=== PATIENT | female | born 1940 | race Caucasian/White ===

== ENCOUNTER 2017-01-02 11:57 | Inpatient (IN) | payer MEDICARE, BC ==
[~2017-01-02] VITALS: Ht 160 cm; Wt 53.1 kg
[2017-01-02] VITALS (23 sets, daily range): BP systolic 96–136; BP diastolic 49–87; PULSE 88–98; RESP 16–28; Ht 160 cm; Wt 53.1 kg
[2017-01-02] MEDS ORDERED: RANI300T PO (13:17)
[2017-01-02] MEDS ORDERED: LISI10TA2 PO (13:17)
[2017-01-02] MEDS ORDERED: PHEN-616 PO (13:17)
[2017-01-02] MEDS ORDERED: ATOR40TA68 PO (13:17)
[2017-01-02] MEDS ORDERED: MECL-77 PO (13:17)
[2017-01-02] MEDS ORDERED: LEFL20TA18 PO (13:17)
[2017-01-02] MEDS ORDERED: SITA50TA2 PO (13:17)
[2017-01-02] MEDS ORDERED: CIPR-193 PO (13:17)
[2017-01-02] MEDS ORDERED: AMIT75TA2 PO (13:17)
[2017-01-02] MEDS ORDERED: NIFE30TA60 PO (13:17)
[2017-01-02] MEDS ORDERED: METO25TA4 PO (13:17)
[2017-01-02] MEDS ORDERED: HEPARIN 1000 UNITS/ML 10 ML INJ ONE (15:07)
[2017-01-02] MEDS ORDERED: MIDAZOLAM 1 MG/ML 2 ML INJ ONE (15:08)
[2017-01-02] MEDS ORDERED: FENTAnyl 50 MCG/ML VIAL ONE (15:08)
[2017-01-02] MEDS ORDERED: VERAPAMIL 5 MG INJ ONE (15:08)
[2017-01-02] MEDS ORDERED: NITROGLYCERIN (IC) 100 MCG/ML INJ ONE (15:08)
[2017-01-02] MEDS ORDERED: ASPIRIN 325 MG TAB ONE (16:00)
[2017-01-02] MEDS ORDERED: TICAGRELOR 90 MG TABLET ONE (16:00)
[2017-01-02] MEDS ORDERED: IOHEXOL 350MG/ML 50 ML BTL ONE (16:00)
[2017-01-02] MEDS ORDERED: BIVALIRUDIN 250MG /NS 50 ML 50 ML IVPB ONE (16:00)
[2017-01-02] MEDS ORDERED: IODIXANOL LOCM 100 ML BTL ONE (16:00)
[2017-01-02] MEDS ORDERED: CLOPIDOGREL 75 MG TAB ONE ×2 (16:19→16:26)
[2017-01-02] MEDS ORDERED: SOD CHLORIDE 0.9% 1,000 ML IV SCH (16:59)
[2017-01-02] MEDS ORDERED: ONDANSETRON 4 MG INJ IV PRN (17:00)
--- NOTE | 2017-01-02 17:25 | OPR ---
Date/Time of Note Date/Time of Note DATE: 01/02/17 TIME: 17:05 Operative Report Procedure Date: Jan 02, 2017 Preoperative Diagnosis NSTEMI Postoperative Diagnosis NSTEMI, CAD Surgeon see signature line Vacation Planner none Anesthesia Type: moderate sedation Anesthesiologist: COLT LIMA Estimated Blood Loss: minimal Transfusion none Specimen none Grafts/Implants none Complications none Procedure Description Procedure Date: 01/02/2017 Dairy Hand/surgeon: Colt Lima MD. Procedures Performed: 1)Left heart catheterization with selective left and right coronary angiography. 2)Aborted PCI of RCA. Will be reattempted at a later time. Pre-operative Diagnosis:NSTEMI Post-operative Diagnosis:NSTEMI, obstructive CAD Indications:76 yo F with a h/o HTN, HL, urinary retention with indwelling campbell , who presented initially due to dysphagia but was found to have an NSTEMI with trop >2 and renal failure. The renal failure resolved. CT of the chest and abd at [facility] was unremarkable. Cardiac cath for evaluation of coronaries. Description of Procedure: After informed consent, the patient was brought to the cardiac catheterization lab. The procedure site was prepped and draped in usual manner. The patient was premedicated with versed 1 mg and fentanyl 25 mcg. 3 mL lidocaine was injected into the left wrist. Next using the posterior wall technique, the 6/5 northern irish sheath was inserted into the left radial artery. Next using the JL3.0 and multiple right catheters (JR4, Demarcus posterior, AL, Ikari left/right, and eventually Demarcus right), selective angiography of the left and right coronary arteries were obtained. Left ventricle angiography was not obtained. The decision was made to proceed with PCI of the RCA. A 6 northern irish IM guide eventually engaged into the RCA. A runthrough wire and PT LS wire were attempted to cross the lesion but due to lack of support (even with balloon support), the wire would not cross. As the fluoroscopy time was nearing 30 mins and the pt had just recently recovered from renal failure, the decision was made to stop the case and bring her back at a different time. Next all equipment was removed and hemostasis was achieved by TR band. Findings: Anatomy/Hemodynamics: Left main: normal LAD: mid 70-80% Diagonal: luminal irregularities Circumflex:mid 30% Obtuse marginal: luminal irregularities RCA: prox to mid long segment of disease up to 95% PDA: luminal irregularities PLV: luminal irregularities LV angiography:not done LV-Ao: no gradient LVEDP: 0 mmHg Contrast used: 130 mL Fluoroscopy time:28.8 mins Medications used: Versed 1mg Fentanyl 25mcg Angiomax bolus plus drip ASA 325mg plavix 600mg Equipment used: 6 northern irish IM guide Runthrough and PT 2 LS angioplasty wire Estimated blood loss<10 mL. Specimen: none Grafts/implants: none Complications: none Assessment: NSTEMI s/p attempted PCI of RCA. Will bring pt back for repeat procedure in 2 days CAD: RCA and LAD disease. Will plan for PCI of RCA this hospitalization and then bring pt back for LAD as outpt HTN HL Chronic indwelling campbell Bladder surgery Dysphagia Plan: -admit to tele under the care of Dr. Humphries -ROME, plavix, lipitor, metoprolol -PCI of RCA in 2 days COLT LIMA Jan 02, 2017 17:25
[2017-01-02] MEDS ORDERED: morphine 2 MG INJ ONE (19:00)
[2017-01-02] MEDS: morphine 2 MG INJ IV PRN (19:06)
[2017-01-02] MEDS: ATORVASTATIN 40 MG TAB PO SCH (20:46)
[2017-01-02] MEDS: METOPROLOL 25 MG TAB PO SCH (20:47)
[2017-01-03] VITALS (14 sets, daily range): BP systolic 117–154; BP diastolic 56–71; PULSE 78–96; RESP 18–19
[2017-01-03] MEDS: morphine 2 MG INJ IV PRN ×3 (03:39→21:33)
--- NOTE | 2017-01-03 07:41 | CONS ---
Date/Time of Note Date/Time of Note DATE: 01/03/17 TIME: 07:36 Assessment/Plan Assessment/Plan Chief Complaint/Hosp Course NSTEMI s/p attempted PCI of RCA which was aborted due to procedure length and pt discomfort. Will repeat tomorrow CAD: RCA and LAD disease. Will plan for PCI of RCA this hospitalization and then bring pt back for LAD as outpt HTN HL Chronic indwelling campbell Bladder surgery Dysphagia UTI -ASA, plavix, lipitor, metoprolol -PCI of RCA tomorrow at 2 pm Problems: Consultation Date/Type/Reason Admit Date/Time Jan 02, 2017 at 17:02 Initial Consult Date 24 HR Interval Summary Free Text/Dictation No o/n events. No chest pain or SOB. Exam/Review of Systems Vital Signs Vitals Vital Signs Date Time Temp Pulse Resp B/P Pulse Ox O2 Delivery O2 Flow Rate FiO2 01/03/17 07:10 98.3 70 19 126/66 94 01/02/17 19:08 Nasal Cannula 2.0 Intake and Output 01/02/17 01/02/17 01/03/17 15:00 23:00 07:00 Intake Total 250 ml 350 ml Output Total 1500 ml 600 ml Balance -1250 ml -250 ml Exam Constitutional: alert, oriented Psych: no complaints Head: atraumatic, normocephalic Eyes: nl conjunctiva Neck: No jvd Respiratory: clear to auscultation, No crackles/rales Cardiovascular: regular rate and rhythm, systolic murmur, No edema Gastrointestinal: non-tender, soft Neurological: nl mental status, nl speech Results Results 24 hrs Laboratory Tests Test 01/02/17 19:10 Bedside Glucose 117 Medications Medications Current Medications Morphine Sulfate (morphine) 2 mg Q2H PRN IV FOR NON CARDIAC PAIN (4-10) Last administered on 01/03/17 03:39; Admin Dose 2 MG; Start 01/02/17 at 17:00 Ondansetron HCl (Zofran Inj) 4 mg Q4H PRN IV NAUSEA AND/OR VOMITING; Start 01/02/17 at 17:00 Aspirin (Aspirin) 81 mg DAILY PO ; Start 01/03/17 at 09:00 Clopidogrel Bisulfate (plaVIX) 75 mg DAILY PO ; Start 01/03/17 at 09:00 Atorvastatin Calcium (Lipitor) 40 mg HS PO Last administered on 01/02/17 20:46 ; Admin Dose 40 MG; Start 01/02/17 at 21:00 Metoprolol Tartrate (Lopressor) 25 mg BID PO Last administered on 01/02/17 20: 47; Admin Dose 25 MG; Start 01/02/17 at 21:00 QING LI Jan 03, 2017 07:41
[2017-01-03 08:13] LABS: BASOPHIL # 0.1 10^3/ul (0.0-0.1); BASOPHILS % 0.7 % (0.0-2.0); EOSINOPHILS # 0.2 10^3/ul (0.0-0.5); HEMATOCRIT 26.7 % (37.0-47.0); HEMOGLOBIN 8.6 g/dl (12.0-16.0); LYMPHOCYTES # 1.9 10^3/ul (0.8-2.9); LYMPHOCYTES % 20.4 % (15.0-51.0); MEAN CORPUSCULAR HEMOGLOBIN 29.2 pg (29.0-33.0); MEAN CORPUSCULAR HGB CONC 32.2 g/dl (32.0-37.0); MEAN CORPUSCULAR VOLUME 90.5 fl (82.0-101.0); MEAN PLATELET VOLUME 9.3 fl (7.4-10.4); MONOCYTES % 10.5 % (0.0-11.0); NEUTROPHILS % 64.5 % (39.0-77.0); PLATELET COUNT 212 10^3/UL (140-415); RED BLOOD COUNT 2.95 10^6/ul (4.20-5.40); RED CELL DISTRIBUTION WIDTH 17.6 % (11.5-14.5); WHITE BLOOD COUNT 9.4 10^3/ul (4.8-10.8)
[2017-01-03 08:30] LABS: CALCIUM 8.8 mg/dl (8.4-10.2); CREATININE 0.77 mg/dl (0.44-1.00); MAGNESIUM 2.1 mg/dl (1.7-2.5); PHOSPHORUS 3.3 mg/dl (2.5-4.9); POTASSIUM 3.4 mmol/L (3.5-5.1)
[2017-01-03] MEDS ORDERED: MECLIZINE 25 MG TAB PO PRN (08:30)
--- NOTE | 2017-01-03 09:46 | HP ---
DATE OF ADMISSION: 01/02/2017 CHIEF COMPLAINT: Chest pain and shortness of breath. HISTORY OF PRESENT ILLNESS: The patient is a 76-year-old female with a past medical history of coronary artery disease, history of hypertension, history of dyslipidemia, history of diabetes, history of recurrent UTI, history of chronic indwelling Jang catheter who presented to an outside hospital with complaints of chills, fevers, shortness of breath. The patient was admitted to the outside hospital, was diagnosed with UTI. The patient also noted to have acute kidney injury and was treated with IV antibiotics as well as IV fluids with resolution of acute kidney injury. The patient was then noted to have a non-STEMI and was transferred to [facility] for cardiac catheterization. The patient had attempted cardiac catheterization yesterday by Dr. Connelly, but given difficult procedure, unable to pass a stent through her RCA. A re-attempt will be made tomorrow. Upon my evaluation of the patient at this time, she is complaining about episode of dysphagia where she states she was told it was due to infection. The patient otherwise denies any hemoptysis, hematemesis, or hematochezia. PAST MEDICAL HISTORY: As stated above. 1. History of coronary disease. 2. Hypertension. 3. Dyslipidemia. 4. Chronic indwelling Jang. 5. History of dysphagia. 6. Recurrent urinary tract infections. PAST SURGICAL HISTORY: Status post bladder surgery. FAMILY HISTORY: Noncontributory. SOCIAL HISTORY: Does not drink, smoke, or do drugs. ALLERGIES: SULFA. MEDICATIONS: Have been reviewed and reconciled. REVIEW OF SYSTEMS: Fourteen point review of systems conducted. Pertinent positives stated in HPI, otherwise negative. PHYSICAL EXAMINATION: VITAL SIGNS: Blood pressure is 126/66, respirations 19, pulse 78, temperature 98.3. HEENT: Head is normocephalic. Pupils are reactive to light. NECK: Supple. HEART: Regular rate. LUNGS: Diminished breath sounds at the base. ABDOMEN: Soft, nontender to palpation. No rebound or guarding. EXTREMITIES: Negative for clubbing, cyanosis. No edema. DERMATOLOGIC: Clean. No rashes. MUSCULOSKELETAL: No joint effusion. NEUROLOGIC: No focal deficits. EKG/LABORATORY DATA: The patient has a white count of 9.4, hemoglobin 8.6, hematocrit 26.7, platelet count 212. The patient's BMP is pending. ASSESSMENT AND PLAN: This is a 76-year-old female who presents with: 1. [id number] myocardial infarction. The patient is status post cardiac catheterization. We will re-attempt catheterization tomorrow. Follow up with Commercial Illustrator, Dr. Connelly. Continue current medical management with aspirin, Lipitor, and Plavix. 2. Hypertension. Continue current blood pressure regimen. 3. Anemia. Monitor H and H levels. 4. Nonoliguric acute kidney injury. Etiology is felt to be secondary to hemodynamics. Renal function is improving. Continue to monitor. 5. Recurrent urinary tract infection. Continue to monitor. Place an Infectious Disease consult for evaluation. 6. History of indwelling Jang catheter. 7. Diabetes. Continue Accu-Cheks and sliding scale. 8. Gastrointestinal and deep venous thrombosis prophylaxis. 9. Dysphagia. Continue to monitor. Get Speech Therapy evaluation. Dictated By: Tyler Humphries DO /florencio/lisa /Document#: [id number]
[2017-01-03] MEDS: CLOPIDOGREL 75 MG TAB PO SCH (10:00)
[2017-01-03] MEDS: ASPIRIN 81 MG TAB PO SCH (10:00)
[2017-01-03] MEDS: LISINOPRIL 10 MG TAB PO SCH (10:04)
[2017-01-03] MEDS: LEFLUNOMIDE 10 MG TAB PO SCH (10:04)
[2017-01-03] MEDS: METOPROLOL 25 MG TAB PO SCH ×2 (10:04→22:16)
[2017-01-03] MEDS: PHENAZOPYRIDINE 200 MG TAB PO SCH ×3 (10:06→22:16)
[2017-01-03] MEDS: CIPROFLOXACIN 250 MG TAB PO SCH ×2 (10:06→22:14)
--- NOTE | 2017-01-03 16:33 | CONS ---
Date/Time of Note Date/Time of Note DATE: 01/03/17 TIME: 16:30 Assessment/Plan Assessment/Plan Chief Complaint/Hosp Course Recurrent UTI NSTEMI DM HTN Anemia Suprapubic catheter Abx: Cipro Plan: Clinically stable, continue abx, f/u final cx, cardiology rec-s DW pt Problems: Consultation Date/Type/Reason Admit Date/Time Jan 02, 2017 at 17:02 Initial Consult Date Type of Consultation: ID Exam/Review of Systems Vital Signs Vitals Vital Signs Date Time Temp Pulse Resp B/P Pulse Ox O2 Delivery O2 Flow Rate FiO2 01/03/17 15:33 98.1 69 19 139/63 98 01/02/17 19:08 Nasal Cannula 2.0 Intake and Output 01/02/17 01/02/17 01/03/17 15:00 23:00 07:00 Intake Total 250 ml 350 ml Output Total 1500 ml 600 ml Balance -1250 ml -250 ml Results Result Diagram: 01/03/17 0738 01/03/17 0738 Results 24 hrs Laboratory Tests Test 01/02/17 19:10 01/03/17 07:38 Bedside Glucose 117 White Blood Count 9.4 Red Blood Count 2.95 L Hemoglobin 8.6 L Hematocrit 26.7 L Mean Corpuscular Volume 90.5 Mean Corpuscular Hemoglobin 29.2 Mean Corpuscular Hemoglobin Concent 32.2 Red Cell Distribution Width 17.6 H Platelet Count 212 Mean Platelet Volume 9.3 Neutrophils % 64.5 Lymphocytes % 20.4 Monocytes % 10.5 Eosinophils % 2.0 Basophils % 0.7 Nucleated Red Blood Cells % 0.0 Neutrophils # 6.0 Lymphocytes # 1.9 Monocytes # 1.0 H Eosinophils # 0.2 Basophils # 0.1 Nucleated Red Blood Cells # 0.0 Sodium Level 134 L Potassium Level 3.4 L Chloride Level 109 Carbon Dioxide Level 19 L Anion Gap 9 Blood Urea Nitrogen 14 Creatinine 0.77 Glucose Level 83 Calcium Level 8.8 Phosphorus Level 3.3 Magnesium Level 2.1 Medications Medications Current Medications Morphine Sulfate (morphine) 2 mg Q2H PRN IV FOR NON CARDIAC PAIN (4-10) Last administered on 01/03/17t 03:39; Admin Dose 2 MG; Start 01/02/17 at 17:00 Ondansetron HCl (Zofran Inj) 4 mg Q4H PRN IV NAUSEA AND/OR VOMITING; Start 01/02/17 at 17:00 Aspirin (Aspirin) 81 mg DAILY PO Last administered on 01/03/17 10:00; Admin Dose 81 MG; Start 01/03/17 at 09:00 Clopidogrel Bisulfate (plaVIX) 75 mg DAILY PO Last administered on 01/03/17 10 :00; Admin Dose 75 MG; Start 01/03/17 at 09:00 Atorvastatin Calcium (Lipitor) 40 mg HS PO Last administered on 01/02/17 20:46 ; Admin Dose 40 MG; Start 01/02/17 at 21:00 Metoprolol Tartrate (Lopressor) 25 mg BID PO Last administered on 01/03/17 10: 04; Admin Dose 25 MG; Start 01/02/17 at 21:00 Amitriptyline HCl (Elavil) 75 mg QHS PO ; Start 01/03/17 at 21:00 Ciprofloxacin (Cipro) 250 mg BID PO Last administered on 01/03/17 10:06; Admin Dose 250 MG; Start 01/03/17 at 10:00 Leflunomide (Arava) 20 mg DAILY PO Last administered on 01/03/17 10:04; Admin Dose 20 MG; Start 01/03/17 at 10:00 Lisinopril (Zestril) 10 mg DAILY PO Last administered on 01/03/17 10:04; Admin Dose 10 MG; Start 01/03/17 at 10:00 Meclizine HCl (Antivert) 25 mg Q8H PRN PO DIZZINESS; Start 01/03/17 at 08:30 Phenazopyridine HCl (Pyridium) 200 mg TID PO Last administered on 01/03/17 13: 09; Admin Dose 200 MG; Start 01/03/17 at 10:00 Ranitidine HCl (Zantac) 300 mg HS PO ; Start 01/03/17 at 21:00 WEST LIAO NP Jan 03, 2017 16:33
[2017-01-03 19:31] LABS: ADD UMIC YES; UR ASCORBIC ACID NEGATIVE (NEGATIVE); UR BILIRUBIN (Dip) NEGATIVE (NEGATIVE); UR BLOOD (Dip) NEGATIVE (NEGATIVE); UR CLARITY CLEAR (CLEAR); UR COLOR AMBER (YELLOW); UR GLUCOSE (Dip) NEGATIVE (NEGATIVE); UR KETONES (Dip) 1+ mg/dL (NEGATIVE); UR LEUKOCYTE ESTERASE (Dip) TRACE Leu/ul (NEGATIVE); UR NITRITE (Dip) POSITIVE (NEGATIVE); UR RBC 2 /HPF (0-5); UR SPECIFIC GRAVITY (Dip) 1.011 (1.003-1.030); UR TOTAL PROTEIN (Dip) NEGATIVE (NEGATIVE); UR UROBILINOGEN (Dip) 2+ mg/dL (NEGATIVE)
[2017-01-03] MEDS: AMITRIPTYLINE 25 MG TAB PO SCH (22:14)
[2017-01-03] MEDS: ATORVASTATIN 40 MG TAB PO SCH (22:14)
[2017-01-03] MEDS: RANITIDINE 150 MG TAB PO SCH (22:16)
[2017-01-03] MEDS: ZOLPIDEM 5 MG TAB PO PRN (22:49)
[2017-01-04] VITALS (20 sets, daily range): BP systolic 79–163; BP diastolic 19–65; PULSE 59–105; RESP 12–19; TEMP 97.5–97.9
[2017-01-04] MEDS ORDERED: ROCURONIUM 50 MG INJ ONE ×2 (07:00→20:07)
[2017-01-04] MEDS ORDERED: NA BICARBONATE 8.4% 50 ML SYG ONE ×2 (07:00→17:14)
[2017-01-04] MEDS ORDERED: DEXTROSE 5% WATER 500 ML BAG ONE (07:00)
[2017-01-04] MEDS ORDERED: ETOMIDATE 20 MG INJ ONE ×2 (07:00→20:07)
[2017-01-04] MEDS ORDERED: AMIODARONE 900 MG INJ ONE (07:00)
[2017-01-04] MEDS ORDERED: NITROGLYCERIN 50 MG/D5W 250 ML BTL ONE (07:00)
[2017-01-04 08:08] LABS: CALCIUM 8.7 mg/dl (8.4-10.2); CREATININE 0.72 mg/dl (0.44-1.00); MAGNESIUM 1.9 mg/dl (1.7-2.5)
[2017-01-04 08:13] LABS: POTASSIUM 2.9 mmol/L (3.5-5.1)
[2017-01-04] MEDS ORDERED: POTASSIUM CHLORIDE 20 MEQ POWDER FOR ORAL SOLN PO ONE (08:30)
[2017-01-04] MEDS: PHENAZOPYRIDINE 200 MG TAB PO SCH ×3 (09:49→21:00)
[2017-01-04] MEDS: CLOPIDOGREL 75 MG TAB PO SCH (09:50)
[2017-01-04] MEDS: LISINOPRIL 10 MG TAB PO SCH (09:50)
[2017-01-04] MEDS: ASPIRIN 81 MG TAB PO SCH (09:51)
[2017-01-04] MEDS: METOPROLOL 25 MG TAB PO SCH ×2 (09:51→21:00)
[2017-01-04] MEDS: CIPROFLOXACIN 250 MG TAB PO SCH (09:52)
[2017-01-04] MEDS ORDERED: POTASSIUM PHOSPHATE 40 MEQ in SOD CHLORIDE 0.9% 250 ML IVPB ONE (10:00)
--- NOTE | 2017-01-04 10:30 | PN ---
DATE: 01/04/2017 SUBJECTIVE: The patient is stable. He is complaining, however, of dysphagia. No other events note d. No hemoptysis, hematemesis or hematochezia. OBJECTIVE: VITAL SIGNS: Blood pressure is 130/65, temperature 97.9, pulse 84, respiration 18. HEENT: Head is normocephalic. NECK: Supple. HEART: Regular rate. LUNGS: Show diminished breath sounds at the base. ABDOMEN: Soft, nontender to palpation. No rebound or guarding. EXTREMITIES: Negative for clubbing, cyanosis, edema. DERMATOLOGIC: No rashes. MUSCULOSKELETAL: No joint effusions. NEUROLOGIC: No change in exam. MEDICATIONS: The patient's medications have been reviewed. LABORATORY DATA: Shows a sodium 134, potassium 2.9, chloride 108, bicarbonate 17, BUN 9, creatinine 0.72. ASSESSMENT AND PLAN: 1. Non-ST elevation myocardial infarction. The patient is status post cardiac catheterization. At tempting repeat cardiac catheterization possibly today. Follow up with cardiology. Continue curren t medical management. 2. Hypokalemia, replete with potassium chloride. 3. Hypertension. Continue current blood pressure regimen. 4. Anemia. Continue to monitor hemoglobin and hematocrit levels. 5. Nonoliguric acute kidney injury. Etiology is secondary to hemodynamics. Renal function is impr francisco. 6. History of recurrent UTIs with indwelling Jang catheter. Continue to monitor. Follow up with infectious disease. 7. Dysphagia. We will place a GI consult for evaluation. 8. Diabetes. Continue current insulin regimen. 9. Gastrointestinal and deep venous thrombosis prophylaxis. 10. Questionable history of joint arthritis. The patient currently is on Arava. Will monitor clos dane. 11. Depression. Continue Elavil. Dictated By: PIEDAD LAUREN/RONALD Conf#: [id number] DID#: [id number]
[2017-01-04 11:14] LABS: BASOPHIL # 0.1 10^3/ul (0.0-0.1); BASOPHILS % 0.7 % (0.0-2.0); EOSINOPHILS # 0.1 10^3/ul (0.0-0.5); EOSINOPHILS % 1.4 % (0.0-7.0); HEMATOCRIT 25.3 % (37.0-47.0); HEMOGLOBIN 8.3 g/dl (12.0-16.0); LYMPHOCYTES # 1.9 10^3/ul (0.8-2.9); LYMPHOCYTES % 22.4 % (15.0-51.0); MEAN CORPUSCULAR HEMOGLOBIN 29.5 pg (29.0-33.0); MEAN CORPUSCULAR HGB CONC 32.8 g/dl (32.0-37.0); MONOCYTE # 0.9 10^3/ul (0.3-0.9); MONOCYTES % 10.2 % (0.0-11.0); NEUTROPHIL # 5.4 10^3/ul (1.6-7.5); NEUTROPHILS % 63.4 % (39.0-77.0); PLATELET COUNT 210 10^3/UL (140-415); RED BLOOD COUNT 2.81 10^6/ul (4.20-5.40); RED CELL DISTRIBUTION WIDTH 17.7 % (11.5-14.5); WHITE BLOOD COUNT 8.5 10^3/ul (4.8-10.8)
--- NOTE | 2017-01-04 13:20 | CONS ---
DATE OF ADMISSION: 01/02/2017 DATE OF CONSULTATION: TYPE OF CONSULTATION: GASTROINTESTINAL REFERRING PHYSICIAN: Dr. Piedad Blanton REASON FOR CONSULTATION: Dysphagia. HISTORY OF PRESENT ILLNESS: This is a 76-year-old female with a history of coronary artery disease, diabetes mellitus, dyslipidemia, was admitted to the outside hospital with a diagnosis of UTI. The patient was treated, stabilized and was transferred to this facility for coronary angiogram. Yester day, angiogram was attempted. The patient had right coronary artery disease. Stent could not be pl aced. The patient will be undergoing another angiogram today. She complains of dysphagia for the l ast 15 days and lost 13 pounds. No chest pain, no shortness of breath, no or ENTRY LEVEL BUYER problem. PAST MEDICAL HISTORY: Hypertension, coronary artery disease, dyslipidemia and UTI. PAST SURGICAL HISTORY: Status post bladder surgery. FAMILY HISTORY: Nothing contributory. SOCIAL HISTORY: Does not smoke or drink. ALLERGIES: SULFA. MEDICATIONS: All reviewed. REVIEW OF SYSTEMS: Negative. PHYSICAL EXAMINATION: GENERAL: Alert, awake, not in distress. VITAL SIGNS: Stable. HEENT: Unremarkable. NECK: Supple, no thyromegaly, no lymphadenopathy. CARDIOVASCULAR: No murmur, gallop or click. LUNGS: Clear. ABDOMEN: Benign. EXTREMITIES: No edema. CENTRAL NERVOUS SYSTEM: Grossly within normal limits. LABORATORY DATA: Hematocrit is low. BMP is within normal limits, hematocrit is 25. WBC is within normal limits. IMPRESSION: 1. Normochromic normocytic anemia. 2. Dysphagia. 3. Coronary artery disease, non-ST elevation myocardial infarction. 4. Hypertension. 5. Dyslipidemia. 6. Urinary tract infection. PLAN: At this point is to review the angiogram findings today and if cleared by cell feed department supervisor then w e will proceed with EGD. In the interim, continue present care. Dictated By: EVY ANDERSON/RONALD Conf#: [id number] DID#: [id number] CC: PIEDAD BLANTON DO;*EndCC*
--- NOTE | 2017-01-04 14:06 | CONS ---
Date/Time of Note Date/Time of Note DATE: 01/04/17 TIME: 14:05 Assessment/Plan Assessment/Plan Chief Complaint/Hosp Course NSTEMI s/p attempted PCI of RCA which was aborted due to procedure length and pt discomfort. Will repeat today CAD: RCA and LAD disease. Will plan for PCI of RCA this hospitalization and then bring pt back for LAD as outpt HTN HL Chronic indwelling campbell Bladder surgery Dysphagia UTI -ASA, plavix, lipitor, metoprolol -PCI of RCA today, keep NPO Problems: Consultation Date/Type/Reason Admit Date/Time Jan 02, 2017 at 17:02 Type of Consultation: Cardiology 24 HR Interval Summary Free Text/Dictation No o/n events. Plan for PCI of RCA today Exam/Review of Systems Vital Signs Vitals Vital Signs Date Time Temp Pulse Resp B/P Pulse Ox O2 Delivery O2 Flow Rate FiO2 01/04/17 12:00 84 01/04/17 11:20 98.0 19 136/63 98 01/02/17 19:08 Nasal Cannula 2.0 Intake and Output 01/03/17 01/03/17 01/04/17 15:00 23:00 07:00 Intake Total 700 ml 500 ml Output Total 700 ml 1300 ml Balance 0 ml -800 ml Exam Constitutional: alert, oriented Psych: nl mood/affect, no complaints Head: atraumatic, normocephalic Neck: No jvd Respiratory: clear to auscultation, No crackles/rales Cardiovascular: regular rate and rhythm, No edema Gastrointestinal: non-tender, soft Extremities: normal pulses Neurological: nl mental status, nl speech Results Result Diagram: 01/04/17 1058 01/04/17 0717 Results 24 hrs Laboratory Tests Test 01/03/17 18:59 01/04/17 07:17 01/04/17 10:58 Urine Color BONY Urine Clarity CLEAR Urine pH 6.0 Urine Specific [place] 1.011 Urine Ketones 1+ H Urine Nitrite POSITIVE A Urine Bilirubin NEGATIVE Urine Urobilinogen 2+ H Urine Leukocyte Esterase TRACE A Urine Microscopic RBC 2 Urine Microscopic WBC 9 H Urine Hemoglobin NEGATIVE Urine Random Creatinine 30.07 Urine Random Sodium 57 Urine Glucose NEGATIVE Urine Total Protein 32.0 H Sodium Level 134 L Potassium Level 2.9 *L Chloride Level 108 Carbon Dioxide Level 17 L Anion Gap 12 Blood Urea Nitrogen 9 Creatinine 0.72 Glucose Level 65 #L Calcium Level 8.7 Phosphorus Level 3.0 Magnesium Level 1.9 White Blood Count 8.5 Red Blood Count 2.81 L Hemoglobin 8.3 L Hematocrit 25.3 L Mean Corpuscular Volume 90.0 Mean Corpuscular Hemoglobin 29.5 Mean Corpuscular Hemoglobin Concent 32.8 Red Cell Distribution Width 17.7 H Platelet Count 210 Mean Platelet Volume 9.0 Neutrophils % 63.4 Lymphocytes % 22.4 Monocytes % 10.2 Eosinophils % 1.4 Basophils % 0.7 Nucleated Red Blood Cells % 0.0 Neutrophils # 5.4 Lymphocytes # 1.9 Monocytes # 0.9 Eosinophils # 0.1 Basophils # 0.1 Nucleated Red Blood Cells # 0.0 Medications Medications Current Medications Morphine Sulfate (morphine) 2 mg Q2H PRN IV FOR NON CARDIAC PAIN (4-10) Last administered on 01/03/17 21:33; Admin Dose 2 MG; Start 01/02/17 at 17:00 Ondansetron HCl (Zofran Inj) 4 mg Q4H PRN IV NAUSEA AND/OR VOMITING; Start 01/02/17 at 17:00 Aspirin (Aspirin) 81 mg DAILY PO Last administered on 01/04/17 09:51; Admin Dose 81 MG; Start 01/03/17 at 09:00 Clopidogrel Bisulfate (plaVIX) 75 mg DAILY PO Last administered on 01/04/17 09 :50; Admin Dose 75 MG; Start 01/03/17 at 09:00 Atorvastatin Calcium (Lipitor) 40 mg HS PO Last administered on 01/03/17 22:14 ; Admin Dose 40 MG; Start 01/02/17 at 21:00 Metoprolol Tartrate (Lopressor) 25 mg BID PO Last administered on 01/04/17 09: 51; Admin Dose 25 MG; Start 01/02/17 at 21:00 Amitriptyline HCl (Elavil) 75 mg QHS PO Last administered on 01/03/17 22:14; Admin Dose 75 MG; Start 01/03/17 at 21:00 Ciprofloxacin (Cipro) 250 mg BID PO Last administered on 01/04/17 09:52; Admin Dose 250 MG; Start 01/03/17 at 10:00 Leflunomide (Arava) 20 mg DAILY PO Last administered on 01/03/17 10:04; Admin Dose 20 MG; Start 01/03/17 at 10:00; Status Future Hold Lisinopril (Zestril) 10 mg DAILY PO Last administered on 01/04/17 09:50; Admin Dose 10 MG; Start 01/03/17 at 10:00 Meclizine HCl (Antivert) 25 mg Q8H PRN PO DIZZINESS; Start 01/03/17 at 08:30 Phenazopyridine HCl (Pyridium) 200 mg TID PO Last administered on 01/04/17 09: 49; Admin Dose 200 MG; Start 01/03/17 at 10:00 Ranitidine HCl (Zantac) 300 mg HS PO Last administered on 01/03/17 22:16; Admin Dose 300 MG; Start 01/03/17 at 21:00 Zolpidem Tartrate (Ambien) 5 mg HS PRN PO INSOMNIA Last administered on 22:49; Admin Dose 5 MG; Start 01/03/17 at 23:00 QING LI Jan 04, 2017 14:06
[2017-01-04] MEDS ORDERED: IOHEXOL 350MG/ML 50 ML BTL ONE (14:22)
[2017-01-04] MEDS ORDERED: BIVALIRUDIN 250MG /NS 50 ML 50 ML IVPB ONE ×2 (14:22→17:24)
[2017-01-04] MEDS ORDERED: NITROGLYCERIN (IC) 100 MCG/ML INJ ONE (14:22)
[2017-01-04] MEDS ORDERED: MIDAZOLAM 1 MG/ML 2 ML INJ ONE (14:22)
[2017-01-04] MEDS ORDERED: IODIXANOL LOCM 100 ML BTL ONE (14:22)
[2017-01-04] MEDS ORDERED: FENTAnyl 50 MCG/ML VIAL ONE (14:22)
[2017-01-04] MEDS ORDERED: LIDOCAINE 1% (MDV) 20 ML INJ ONE (14:22)
[2017-01-04] MEDS ORDERED: ATROPINE 1 MG/10 ML SYRINGE ONE ×2 (16:36→17:16)
[2017-01-04] MEDS ORDERED: DOPamine-D5W 1.6 MG/ML 250 ML ONE (16:36)
[2017-01-04] MEDS ORDERED: NORepinephrine 8MG/250 ML (PMX 250 ML ONE (16:36)
[2017-01-04] MEDS ORDERED: AMIODARONE 150 MG INJ ONE (16:41)
[2017-01-04] MEDS ORDERED: MIDAZOLAM 5 ML ONE ×2 (16:44)
[2017-01-04] MEDS ORDERED: HEPARIN 1000 UNITS/ML 10 ML INJ ONE ×3 (16:48→17:40)
[2017-01-04] MEDS ORDERED: AMIODARONE 900 MG in DEXTROSE 5% 482 ML IV SCH (17:00)
--- NOTE | 2017-01-04 17:10 | CONS ---
Date/Time of Note Date/Time of Note DATE: 01/04/17 TIME: 17:05 Assessment/Plan Assessment/Plan Additional Assessment/Plan 76 year old female s/p attempted PCI of RCA with resultant dissection and cardiac arrest needs emergent CABGx2. I discussed over the phone with patients daughter in law who has durable power of traffic law attorney. She understands the grave risks and benefits of surgery and consents. Consultation Date/Type/Reason Admit Date/Time Jan 02, 2017 at 17:02 Date of Consultation: Jan 04, 2017 Reason for Consultation emergency CABG Referring Provider: QING LI Hx of Present Illness 76 year old female undergoing PCI of RCA and vessel was dissecting. She went into vfib arrest requiring cardioversion. 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 Subjective hx not possible: pt non-verbal, pt critical status Psychological: nl mood/affect, no complaints Past Medical History Medical History: no pertinent history, angina Past Surgical History suprapubic catheter Family History Significant Family History: no pertinent family hx Social History Alcohol Use: none Smoking Status: Never smoker Exam/Review of Systems Vital Signs Vitals Vital Signs Date Time Temp Pulse Resp B/P Pulse Ox O2 Delivery O2 Flow Rate FiO2 01/04/17 12:00 84 01/04/17 11:20 98.0 19 136/63 98 01/02/17 19:08 Nasal Cannula 2.0 Intake and Output 01/03/17 01/03/17 01/04/17 15:00 23:00 07:00 Intake Total 700 ml 500 ml Output Total 700 ml 1300 ml Balance 0 ml -800 ml Exam Constitutional: non-verbal Head: No atraumatic, No hematomas, No lacerations, No normocephalic, No other Eyes: PERRL, nl sclera ENMT: No intubated, No mucosa pink and moist, No nl external ears & nose, No nl lips & teeth, No nl nasal mucosa & septum, No other, No tympanic membranes Neck: No bruits, No jvd, No masses, No non-tender, No nuchal rigidity, No other , No supple, No thyromegaly Respiratory: diminished breath sounds Cardiovascular: No S3, No S4, No bruits, No diastolic murmur, No edema, No gallop, No irregular rhythm, No jugular venous distention (JVD), No murmurs/ extra sounds, No nl pulses, No other, No regular rate and rhythm, No rub, No systolic murmur Gastrointestinal: No ascites, No bowel sounds, No distended, No firm, No hepatomegaly, No mass, No nl liver, spleen, No non-tender, No other, No rebound or guarding, No soft, No splenomegaly, No surgical scars, No tender Musculoskeletal: No joint tenderness, No muscle tone, No muscle weakness, No nl extremities to inspection, No nl gait and stance, No other, No range of motion, No spine non-tender, No swelling Extremities: No calf tenderness, No clubbing, No cyanosis, No edema, No normal pulses, No other, No palpable cord, No pitting pedal edema, No tenderness Neurological: unresponsive Skin: No diaphoresis, No ecchymosis, No laceration, No nl turgor, No other, No puncture, No rash or lesions Lymph: No enlarged, No nl lymph nodes, No nontender, No other Results Result Diagram: 01/04/17 1058 01/04/17 0717 Results 24 hrs Laboratory Tests Test 01/03/17 18:59 01/04/17 07:17 01/04/17 10:58 Urine Color BONY Urine Clarity CLEAR Urine pH 6.0 Urine Specific [place] 1.011 Urine Ketones 1+ H Urine Nitrite POSITIVE A Urine Bilirubin NEGATIVE Urine Urobilinogen 2+ H Urine Leukocyte Esterase TRACE A Urine Microscopic RBC 2 Urine Microscopic WBC 9 H Urine Hemoglobin NEGATIVE Urine Random Creatinine 30.07 Urine Random Sodium 57 Urine Glucose NEGATIVE Urine Total Protein 32.0 H Sodium Level 134 L Potassium Level 2.9 *L Chloride Level 108 Carbon Dioxide Level 17 L Anion Gap 12 Blood Urea Nitrogen 9 Creatinine 0.72 Glucose Level 65 #L Calcium Level 8.7 Phosphorus Level 3.0 Magnesium Level 1.9 White Blood Count 8.5 Red Blood Count 2.81 L Hemoglobin 8.3 L Hematocrit 25.3 L Mean Corpuscular Volume 90.0 Mean Corpuscular Hemoglobin 29.5 Mean Corpuscular Hemoglobin Concent 32.8 Red Cell Distribution Width 17.7 H Platelet Count 210 Mean Platelet Volume 9.0 Neutrophils % 63.4 Lymphocytes % 22.4 Monocytes % 10.2 Eosinophils % 1.4 Basophils % 0.7 Nucleated Red Blood Cells % 0.0 Neutrophils # 5.4 Lymphocytes # 1.9 Monocytes # 0.9 Eosinophils # 0.1 Basophils # 0.1 Nucleated Red Blood Cells # 0.0 Medications Medications Current Medications Morphine Sulfate (morphine) 2 mg Q2H PRN IV FOR NON CARDIAC PAIN (4-10) Last administered on 01/03/17 21:33; Admin Dose 2 MG; Start 01/02/17 at 17:00 Ondansetron HCl (Zofran Inj) 4 mg Q4H PRN IV NAUSEA AND/OR VOMITING; Start 01/02/17 at 17:00 Aspirin (Aspirin) 81 mg DAILY PO Last administered on 01/04/17 09:51; Admin Dose 81 MG; Start 01/03/17 at 09:00 Clopidogrel Bisulfate (plaVIX) 75 mg DAILY PO Last administered on 01/04/17 09 :50; Admin Dose 75 MG; Start 01/03/17 at 09:00 Atorvastatin Calcium (Lipitor) 40 mg HS PO Last administered on 01/03/17 22:14 ; Admin Dose 40 MG; Start 01/02/17 at 21:00 Metoprolol Tartrate (Lopressor) 25 mg BID PO Last administered on 01/04/17 09: 51; Admin Dose 25 MG; Start 01/02/17 at 21:00 Amitriptyline HCl (Elavil) 75 mg QHS PO Last administered on 01/03/17 22:14; Admin Dose 75 MG; Start 01/03/17 at 21:00 Ciprofloxacin (Cipro) 250 mg BID PO Last administered on 01/04/17 09:52; Admin Dose 250 MG; Start 01/03/17 at 10:00 Leflunomide (Arava) 20 mg DAILY PO Last administered on 01/03/17 10:04; Admin Dose 20 MG; Start 01/03/17 at 10:00; Status Future Hold Lisinopril (Zestril) 10 mg DAILY PO Last administered on 01/04/17 09:50; Admin Dose 10 MG; Start 01/03/17 at 10:00 Meclizine HCl (Antivert) 25 mg Q8H PRN PO DIZZINESS; Start 01/03/17 at 08:30 Phenazopyridine HCl (Pyridium) 200 mg TID PO Last administered on 01/04/17 09: 49; Admin Dose 200 MG; Start 01/03/17 at 10:00 Ranitidine HCl (Zantac) 300 mg HS PO Last administered on 01/03/17 22:16; Admin Dose 300 MG; Start 01/03/17 at 21:00 Zolpidem Tartrate 5 mg 5 mg HS PRN PO INSOMNIA Last administered on 01/03/17 22:49; Admin Dose 5 MG; Start 01/03/17 at 23:00 Amiodarone HCl 900 mg/Dextrose 500 ml @ 0 mls/hr Q0M IV ; Start 01/04/17 at 17: 00; Stop 01/05/17 at 16:59 Insulin Human Regular 100 unit/ Sodium Chloride 100 ml @ 0 mls/hr Q0M ONCE IVPB ; Start 01/04/17 at 17:30; Stop 01/04/17 at 17:31 Norepinephrine 250 ml @ 0 mls/hr ONCE ONCE IV ; Start 01/04/17 at 17:30; Stop 01/04/17 at 17:31 Epinephrine 4 mg/ Dextrose 250 ml @ 0 mls/hr Q0M ONCE IV ; Start 01/04/17 at 17: 30; Stop 01/04/17 at 17:31 Phenylephrine HCl (Christiano-Syneph) 250 ml @ 0 mls/hr ONCE ONCE IV ; Start 01/04/17 at 17:30; Stop 01/04/17 at 17:31 Aspirin 600 mg 600 mg ONCE ONCE TN ; Start 01/04/17 at 17:30; Stop 01/04/17 at 17:31 Heparin Sodium (Porcine) 87778 unit/Milrinone Lactate 10 mg/ Sodium Chloride 1, 011 ml @ 0 mls/hr ONCE ONCE SC ; Start 01/04/17 at 17:30; Stop 01/04/17 at 17: 31 Milrinone Lactate/ Sodium Chloride (Primacor/NS) 52 ml @ 0 mls/hr ONCE ONCE IV ; Start 01/04/17 at 17:30; Stop 01/04/17 at 17:31 JOANN HEWITT MD Jan 04, 2017 17:10
[2017-01-04] MEDS ORDERED: MAGNESIUM SULFATE (MG) 50% 10 ML INJ ONE (17:14)
[2017-01-04] MEDS ORDERED: PHENYLephrine 10 MG INJ ONE ×2 (17:14→18:58)
[2017-01-04] MEDS ORDERED: CA CHLORIDE 10% 10 ML SYRINGE ONE (17:14)
[2017-01-04] MEDS ORDERED: POTASSIUM CHLORIDE 40 MEQ INJ ONE (17:14)
[2017-01-04] MEDS ORDERED: ALBUMIN HUMAN 25% 200 ML ONE (17:14)
[2017-01-04] MEDS ORDERED: AMINOCAPROIC ACID 5 GM INJ ONE ×4 (17:14→19:16)
[2017-01-04] MEDS ORDERED: LIDOCAINE 100 MG SYRINGE ONE (17:14)
[2017-01-04] MEDS ORDERED: MANNITOL 25% 150 ML ONE (17:14)
[2017-01-04] MEDS ORDERED: LIDOCAINE 2 GM/D5W 500 ML ONE (17:18)
[2017-01-04] MEDS ORDERED: INSULIN HUMAN REGULAR 100 UNIT in SOD CHLORIDE 0.9% 99 ML IVPB ONE (17:30)
[2017-01-04] MEDS ORDERED: MILRINONE LACTATE 2 MG in SOD CHLORIDE 0.9% 50 ML IV ONE (17:30)
[2017-01-04] MEDS ORDERED: NORepinephrine 8MG/250 ML (PMX 250 ML IV ONE (17:30)
[2017-01-04] MEDS ORDERED: EPINEPHrine 4 MG in DEXTROSE 5% 246 ML IV ONE (17:30)
[2017-01-04] MEDS ORDERED: HEPARIN (10000 UNITS/ML) 10,000 UNIT, MILRINONE LACTATE 10 MG in SOD CHLORIDE 0.9% 1,00... SC ONE (17:30)
[2017-01-04] MEDS ORDERED: PHENYLephrine 20MG IN 250 ML 250 ML IV ONE (17:30)
[2017-01-04] MEDS ORDERED: ASPIRIN 600 MG SUPP PR ONE (17:30)
[2017-01-04] MEDS ORDERED: CEFAZOLIN 1 GM INJ ONE ×2 (17:33→19:16)
[2017-01-04] MEDS ORDERED: PAPAVERINE 60 MG INJ ONE (17:39)
[2017-01-04] MEDS ORDERED: SODIUM CL BACTERIOSTATIC 30 ML INJ ONE (17:39)
[2017-01-04] MEDS ORDERED: VANCOMYCIN 1 GM INJ ONE (17:39)
--- NOTE | 2017-01-04 17:51 | OPR ---
Date/Time of Note Date/Time of Note DATE: 01/04/17 TIME: 17:24 Operative Report Preoperative Diagnosis NSTEMI, CAD Postoperative Diagnosis NSTEMI, CAD, attempted PCI of RCA with dissection of proximal vessel, VF arrest , need for emergent cardiac surgery Operation/Procedure Performed Cardiac cath, IABP placement Surgeon see signature line Packing Room Supervisor none Anesthesia Type: moderate sedation Anesthesiologist: COLT LIMA Estimated Blood Loss: minimal Transfusion none Specimen none Grafts/Implants none Complications none Procedure Description Procedure Date:01/04/2017 Belt Polisher/surgeon: Colt Lima MD. Procedures Performed: 1)Attempted PCI of RCA complicated by proximal vessel dissection, cardiac arrest , cardiogenic shock, need for emergent cardiac surgery for bypass. 2)Femoral angiography 3)IABP placement Pre-operative Diagnosis:NSTEMI, CAD Post-operative Diagnosis:NSTEMI, CAD, attempted PCI of RCA with dissection of proximal vessel, VF arrest, need for emergent cardiac surgery Indications:76 yo F with planned PCI of RCA in setting of chest pain and NSTEMI (trop 2). Pt was agreeable to attempted PCI of RCA and understood the risks including renal failure, [place], arrhythmias, need for emergent cardiac surgery and wished to proceed. Description of Procedure: After informed consent, the patient was brought to the cardiac catheterization lab. The procedure site was prepped and draped in usual manner. The patient was premedicated with versed 0.5 mg and fentanyl 25 mcg. 5 mL lidocaine was injected into the right groin. Next using the Seldinger technique, the 6 nigerian sheath was inserted into the right femoral artery with micropuncture first. A 6 nigerian allright 3.5 guide was advanced and engaged into the right coronary artery. After appropriate anticoagulation was given, the PT 2 moderate support wire was attempted to cross the lesion but due to tortuosity, was not possible. Next the BMW wire was tried as it has less chance of dissection considering the vessel tortuosity. The BMW wire crossed the first tortuous lesion but would not cross the second. An OTW balloon was attempted but wire access was lost. Next The BMW was tried again to cross and was unable. At some point the guide likely dissected the proximal RCA at the proximal lesion. The patient lost flow to the vessel and became severely bradycardic. She did not lose her pulse. The guide was quickly changed for a less aggressive guide, an IM guide. The wire was actually then advanced past all lesions but an attempt to cross with a balloon again suddenly kicked out the guide and wire. At this time the guide was reengaged and the wire was advanced to the mid lesion. Flow was CHARISMA 1-2 at this time. As the dissection was proximal, the 2.0 balloon was advanced and the proximal segment dilated x 3 with CHARISMA 3 flow established. The options were to only stent the proximal segment as the wire could not be advanced to the distal vessel to be able to stent the mid vessel or to stabilize the pt for emergent cardiac surgery. Dr Gauthier was notified and the discussion was to try to stent the prox segment to try to stabilize the dissection and take her to the OR. At this time the pt was still responsive but having chest pain. She did not have ST elevation and her flow was CHARISMA 3. An attempt was made to advance the stent but was not possible. The dissection was reballooned with a 2.5 balloon but the stent would again not cross. At this time the decision was made to leave the vessel as there was CHARISMA [address] elevation and place a balloon pump. The 6 nigerian sheath was exchanged for an IABP sheath and an IABP placed below the aortic arch. The pt was stabilized but then had VF and had to be shocked x2. She was given amiodarone and eventually lidocaine bolus and drips to control her arrhythmias. She was intubated. Access was obtained in the left groin and the JR guide advanced to the RCA. Angiography revealed CHARISMA 3 flow with the same prior proximal dissection. The pt eventually stabilized enough to be rushed to the OR for emergent cardiac surgery The pt's daughter in law, Ariana Crenshaw who the pt had designated as the salesperson flowers, was notified of the situation and she was agreeable for cardiac surgery. Findings: Anatomy/Hemodynamics: RCA: prox to mid long segment of disease up to 95%. Post procedure same plus dissection of proximal RCA with CHARISMA 3 flow Medications used: Versed 0.5 fentanyl 25 angiomax lidocaine bolus plus drip amiodarone bolus plus drip levophed Equipment used: 6 nigerian allright, IM, JR guides BMW, PT moderate, runthrough angioplasty wires 2 x 12 and 2.5 x 12 balloon Estimated blood loss<10 mL. Specimen: none Grafts/implants: none Complications: none Assessment: Attempted PCI of RCA with dissection of proximal vessel, VF arrest, need for emergent cardiac surgery NSTEMI CAD Plan: -to OR for emergent CABG with Dr. Gauthier -family notified as above COLT LIMA Jan 04, 2017 17:50 COLT LIMA Jan 04, 2017 17:50
[2017-01-04] MEDS ORDERED: DESMOPRESSIN IV ONE (18:00)
[2017-01-04] MEDS ORDERED: SOD CHLORIDE 0.9% IV ONE (18:00)
[2017-01-04] MEDS ORDERED: PHENYLephrine (100 MCG/ML) 5ML SYG ONE ×2 (18:06→19:28)
[2017-01-04] MEDS ORDERED: FUROSEMIDE 20 MG INJ ONE ×3 (18:17→19:46)
[2017-01-04] MEDS ORDERED: NORepinephrine 4 MG INJ ONE (18:58)
[2017-01-04] MEDS ORDERED: LEVOFLOXACIN 500MG/D5W (PMX) 100 ML IVPB ONE (19:00)
[2017-01-04] MEDS ORDERED: PROTAMINE 250 MG INJ ONE ×2 (19:03→19:28)
[2017-01-04] MEDS ORDERED: SOD CHLORIDE 0.9% 250 ML IV* ONE (19:22)
[2017-01-04] MEDS ORDERED: THROMBIN 5000 UNIT VIAL ONE (19:25)
[2017-01-04] MEDS ORDERED: GELATIN SIZE 100 SPONGE ONE (19:25)
--- NOTE | 2017-01-04 19:59 | SIPON ---
Date/Time of Note Date/Time of Note DATE: 01/04/17 TIME: 19:57 Operative Report Preoperative Diagnosis cardiac arrest, 2 vessel CAD, RCA dissection Postoperative Diagnosis same Operation/Procedure Performed CABGx2, SHAW to LAD, SVG to distal RCA Surgeon Noel Gauthier MD assistant construction superintendent Ramiro Jain MD Anesthesia: general Estimated blood loss: other Transfusion Required 4units PRBC, 2units FFP, 1unit platelets, 1unit cryo Specimen none Grafts/Implants none Complications none NOEL GAUTHIER MD Jan 04, 2017 19:59
[2017-01-04] MEDS ORDERED: DOPamine-D5W 1.6 MG/ML 250 ML IV SCH ×2 (20:00→21:00)
[2017-01-04] MEDS ORDERED: HYDROmorphONE 1 MG/ML SYG IV PRN ×2 (20:00)
[2017-01-04] MEDS ORDERED: MAGNESIUM SULFATE 1 GM/D5W 100 ML IVPB PRN (20:00)
[2017-01-04] MEDS ORDERED: ONDANSETRON 4 MG INJ IV PRN (20:00)
[2017-01-04] MEDS ORDERED: LIDOCAINE 2% (SDV) 5 ML INJ ONE (20:07)
--- NOTE | 2017-01-04 20:15 | RADRPT ---
PROCEDURE: XR Chest. CLINICAL INDICATION: Postoperative. TECHNIQUE: Single frontal chest x-ray. COMPARISON: None. FINDINGS: The patient status post sternotomy. Endotracheal tube tip is at the level of the clavicles. Right in ternal jugular [place]-Pete catheter tip is in the main pulmonary artery. Mediastinal drain bilateral b asilar chest tubes are present. Heart is normal size. There is left basilar atelectasis. Mild pulmon mark vascular congestion. There are no pleural effusions. There are small less than 5% bilateral apic al pneumothoraces. Bones unremarkable. IMPRESSION: Status post sternotomy. Lines as described above. Small bilateral apical pneumothoraces. Left basil ar retrocardiac atelectasis. Mild pulmonary vascular congestion. RPTAT: HMVK .Ramiro Bui MD, Date Time Electronically viewed and signed by .Ramiro Bui MD, on 01/04/2017 20:14 .K/
[2017-01-04] MEDS ORDERED: INSULIN HUMAN REGULAR 100 UNIT in SOD CHLORIDE 0.9% 99 ML IV SCH (20:30)
[2017-01-04] MEDS: ACCU-CHEK XX SCH ×4 (20:30→23:30)
[2017-01-04] MEDS ORDERED: DEXTROSE 50% 50 ML SYRINGE IV PRN ×2 (20:30)
[2017-01-04] MEDS ORDERED: FAMOTIDINE 20 MG TAB PO SCH (21:00)
[2017-01-04] MEDS ORDERED: INSULIN ASPART [NOVOLOG] 3 ML PEN SC SCH ×2 (21:00)
[2017-01-04] MEDS ORDERED: NORepinephrine 8MG/250 ML (PMX 250 ML IV SCH (21:00)
[2017-01-04] MEDS ORDERED: NITROGLYCERIN 50 MG/D5W (PMX) 250 ML IV SCH (21:00)
[2017-01-04] MEDS: RANITIDINE 150 MG TAB PO SCH ×2 (21:00→23:53)
[2017-01-04 21:08] LABS: INR 2.48; PROTIME 27.1 Sec (12.2-14.2); PT RATIO 2.1
[2017-01-04 21:11] LABS: CALCIUM 10.5 mg/dl (8.4-10.2); CREATININE 0.73 mg/dl (0.44-1.00); MAGNESIUM 2.3 mg/dl (1.7-2.5); POTASSIUM 3.6 mmol/L (3.5-5.1)
[2017-01-04 21:13] LABS: AADO2 Arterial 369.7 mmHg (7.0-24.0); Arterial Base Excess -4.6 mmol/L (-3.0-3); Arterial COHb 0.3 % (0.0-3.0); Arterial Fraction of Oxyhgb 95.3 % (93.0-99.0); Arterial HCO3 20.5 mmol/L (22.0-26.0); Arterial MetHb 0.3 % (0.0-1.5); Arterial Total Hemglobin 10.5 g/dl (12.0-18.0); MODE VENT - AC
[2017-01-04 21:25] LABS: PARTIAL THROMBOPLASTIN TIME 111.8 Sec (25.0-35.0)
[2017-01-04] MEDS: CEFAZOLIN 1 GM/50 ML (PMX) 50 ML IVPB SCH (21:53)
[2017-01-04 22:01] LABS: MODE VENT - AC; Sample Type BLMV
[2017-01-04 22:08] LABS: ABNORMAL IP MESSAGE 1; HEMATOCRIT 28.5 % (37.0-47.0); HEMOGLOBIN 9.7 g/dl (12.0-16.0); MEAN CORPUSCULAR HEMOGLOBIN 29.2 pg (29.0-33.0); MEAN CORPUSCULAR VOLUME 85.8 fl (82.0-101.0); MEAN PLATELET VOLUME 9.2 fl (7.4-10.4); PLATELET COUNT 85 10^3/UL (140-415); RED BLOOD COUNT 3.32 10^6/ul (4.20-5.40); RED CELL DISTRIBUTION WIDTH 16.1 % (11.5-14.5); WHITE BLOOD COUNT 20.2 10^3/ul (4.8-10.8)
[2017-01-04 22:11] LABS: POSITIVE DIFF @See below
[2017-01-04] MEDS: FAMOTIDINE 20 MG INJ IV SCH (22:23)
[2017-01-04] MEDS: POTASSIUM CHLORIDE 40 MEQ, CALCIUM CHLORIDE 10% 1 GM in DEXTROSE 5%-0.225% NACL 1,000 ML IV SCH (22:23)
[2017-01-04] MEDS: NITROGLYCERIN 50 MG/D5W (PMX) 250 ML IV SCH (22:37)
[2017-01-04] MEDS: POTASSIUM CHLORIDE 50 ML IVPB PRN ×2 (22:49→23:30)
[2017-01-04] MEDS: MUPIROCIN 2% 22 GM OINT TOP SCH (23:06)
[2017-01-04 23:24] LABS: PLATELET ESTIMATE DECREASED
[2017-01-05] VITALS (86 sets, daily range): BP systolic 95–170; BP diastolic 22–74; PULSE 76–118; RESP 0–55; TEMP 97.1–98.9
[2017-01-05] MEDS: POTASSIUM CHLORIDE 50 ML IVPB PRN ×5 (00:17→07:54)
[2017-01-05] MEDS: ACCU-CHEK XX SCH ×13 (00:30→12:30)
--- NOTE | 2017-01-05 01:09 | RADRPT ---
PROCEDURE: XR Chest. CLINICAL INDICATION: . Intra-aortic balloon catheter placement. TECHNIQUE: Single AP portable chest. COMPARISON: No prior Chest x-ray FINDINGS: The cardiomediastinal silhouette is within normal limits of size. Sternotomy wires, endotracheal tub e, and [place]-Pete catheter in place as well as multiple surgical drains in stable position. Atherosc lerotic calcification of the aorta. Small persistent left pleural effusion and/or atelectasis. Stabl e less than 5% bilateral apical pneumothoraces. The osseous structures and soft tissues are unremar kable. IMPRESSION: 1. Sternotomy wires and extensive postoperative changes support devices in stable position. 2. Stable bilateral apical pneumothoraces less than 5%. 3. Persistent small left pleural effusion and/or atelectasis. RPTAT:AAJJ Physician Adrienne Date Time Electronically viewed and signed by Physician Adrienne on 01/05/2017 01:08 SARAH/
[2017-01-05] MEDS ORDERED: SOD CHLORIDE 0.9% 500 ML IV ONE ×2 (03:00→09:30)
[2017-01-05] MEDS: CEFAZOLIN 1 GM/50 ML (PMX) 50 ML IVPB SCH (03:29)
[2017-01-05 04:41] LABS: AADO2 Arterial 235.9 mmHg (7.0-24.0); Arterial Base Excess -4.6 mmol/L (-3.0-3); Arterial COHb 0.1 % (0.0-3.0); Arterial Fraction of Oxyhgb 98.8 % (93.0-99.0); Arterial MetHb 0 % (0.0-1.5); Arterial Total Hemglobin 8.4 g/dl (12.0-18.0); MODE VENT - AC
[2017-01-05 04:47] LABS: ABNORMAL IP MESSAGE 1; BASOPHIL # 0.1 10^3/ul (0.0-0.1); BASOPHILS % 0.3 % (0.0-2.0); HEMATOCRIT 23.3 % (37.0-47.0); HEMOGLOBIN 8.1 g/dl (12.0-16.0); LYMPHOCYTES # 0.9 10^3/ul (0.8-2.9); LYMPHOCYTES % 4.1 % (15.0-51.0); MEAN CORPUSCULAR HEMOGLOBIN 29.7 pg (29.0-33.0); MEAN CORPUSCULAR HGB CONC 34.8 g/dl (32.0-37.0); MEAN CORPUSCULAR VOLUME 85.3 fl (82.0-101.0); MEAN PLATELET VOLUME 9.8 fl (7.4-10.4); MONOCYTE # 1.5 10^3/ul (0.3-0.9); MONOCYTES % 7.4 % (0.0-11.0); NEUTROPHIL # 17.9 10^3/ul (1.6-7.5); NEUTROPHILS % 85.7 % (39.0-77.0); PLATELET COUNT 140 10^3/UL (140-415); RED BLOOD COUNT 2.73 10^6/ul (4.20-5.40); RED CELL DISTRIBUTION WIDTH 17.4 % (11.5-14.5); WHITE BLOOD COUNT 20.9 10^3/ul (4.8-10.8)
[2017-01-05 05:14] LABS: CALCIUM 9.6 mg/dl (8.4-10.2); CREATININE 0.92 mg/dl (0.44-1.00); MAGNESIUM 1.9 mg/dl (1.7-2.5); PHOSPHORUS 3.7 mg/dl (2.5-4.9); POTASSIUM 3.8 mmol/L (3.5-5.1)
[2017-01-05 05:22] LABS: POSITIVE DIFF @See below
[2017-01-05 05:53] LABS: INR 1.62; PROTIME 19.4 Sec (12.2-14.2); PT RATIO 1.5
[2017-01-05 05:54] LABS: PARTIAL THROMBOPLASTIN TIME 56.7 Sec (25.0-35.0)
[2017-01-05] MEDS ORDERED: MAGNESIUM SULFATE 2 GM/50 ML 50 ML ONE (06:22)
--- NOTE | 2017-01-05 06:23 | PN ---
Date/Time of Note Date/Time of Note DATE: 01/05/17 TIME: 06:22 Assessment/Plan Lines/Catheters IV Catheter Type (from [facility]): Peripheral IV Jang in Place (from [facility]): Yes (SUPRAPUBIC CATHETER) Assessment/Plan Chief Complaint/Hosp Course HD stable remove IABP hct 23 replace mag replace K extubate and wean drips Problems: Exam/Review of Systems Vital Signs Vitals Vital Signs Date Time Temp Pulse Resp B/P Pulse Ox O2 Delivery O2 Flow Rate FiO2 01/05/17 05:32 50 01/05/17 05:16 103 26 100 01/05/17 05:00 97.9 104/30 01/02/17 19:08 Nasal Cannula 2.0 Intake and Output 01/04/17 01/04/17 01/05/17 15:00 23:00 07:00 Intake Total 5239 ml 466.8 ml Output Total 2285 ml 1320 ml Balance 2954 ml -853.2 ml Results Result Diagram: 01/05/17 0430 01/05/17 0430 JOANN HEWITT MD Jan 05, 2017 06:23
[2017-01-05] MEDS ORDERED: LEVOFLOXACIN 500MG/D5W (PMX) 100 ML IVPB ONE (06:30)
[2017-01-05] MEDS ORDERED: MAGNESIUM SULFATE 2 GM/50 ML 50 ML IVPB ONE (06:30)
[2017-01-05] MEDS: LEVOFLOXACIN 500MG/D5W (PMX) 100 ML IVPB SCH (06:45)
--- NOTE | 2017-01-05 07:12 | CONS ---
Date/Time of Note Date/Time of Note DATE: 01/05/17 TIME: 07:11 Assessment/Plan Assessment/Plan Chief Complaint/Hosp Course CAD s/p CABG: emergent SHAW-LAD and SVG-RCA for proximal RCA dissection during cardiac cath NSTEMI s/p attempted PCI of RCA 01/02 and again 01/04 complicated by RCA dissection requiring emergent CABG VF arrest: in setting of RCA dissection. Off lidocaine and being weaned off amiodarone Cardiogenic shock: in setting of above. IABP removed. Wean off milrinone HTN HL Chronic suprapubic catheter Bladder surgery Dysphagia UTI -wean off levophed and milrinone drips -extubate if possible -ASA, plavix (will check with surgery if ok) -lipitor -hold metoprolol and lisinopril until off pressor support -check echo Problems: Consultation Date/Type/Reason Admit Date/Time Jan 02, 2017 at 17:02 Type of Consultation: Cardiology Referring Provider: QING LI 24 HR Interval Summary Free Text/Dictation s/p cardiac cath yesterday complicated by RCA dissection, cardiac arrest, and need for emergent CABG. Pt had CABG with SHAW-LAD and SVG-RCA without complications. She is doing well this am though on minimal levophed and milrinone. IABP removed. Able to follow commands. Wants ET tube out. Exam/Review of Systems Vital Signs Vitals Vital Signs Date Time Temp Pulse Resp B/P Pulse Ox O2 Delivery O2 Flow Rate FiO2 01/05/17 06:53 98.6 96 18 109/47 100 01/05/17 05:32 50 01/02/17 19:08 Nasal Cannula 2.0 Intake and Output 01/04/17 01/04/17 01/05/17 15:00 23:00 07:00 Intake Total 5239 ml 599.6 ml Output Total 2285 ml 1320 ml Balance 2954 ml -720.4 ml Exam Constitutional: alert, No distress Head: atraumatic, normocephalic ENMT: intubated Neck: No jvd Respiratory: clear to auscultation, diminished breath sounds, No crackles/rales Cardiovascular: regular rate and rhythm, No edema, No systolic murmur Gastrointestinal: non-tender, soft, No distended Extremities: other (bilateral groins without hematoma ) Neurological: nl mental status Results Result Diagram: 01/05/17 0430 01/05/17 0430 Results 24 hrs Laboratory Tests Test 01/04/17 07:17 01/04/17 10:58 01/04/17 19:59 01/04/17 20:30 Sodium Level 134 L Potassium Level 2.9 *L Chloride Level 108 Carbon Dioxide Level 17 L Anion Gap 12 Blood Urea Nitrogen 9 Creatinine 0.72 Glucose Level 65 #L Calcium Level 8.7 Phosphorus Level 3.0 Magnesium Level 1.9 White Blood Count 8.5 Red Blood Count 2.81 L Hemoglobin 8.3 L Hematocrit 25.3 L Mean Corpuscular Volume 90.0 Mean Corpuscular Hemoglobin 29.5 Mean Corpuscular Hemoglobin Concent 32.8 Red Cell Distribution Width 17.7 H Platelet Count 210 Mean Platelet Volume 9.0 Neutrophils % 63.4 Lymphocytes % 22.4 Monocytes % 10.2 Eosinophils % 1.4 Basophils % 0.7 Nucleated Red Blood Cells % 0.0 Neutrophils # 5.4 Lymphocytes # 1.9 Monocytes # 0.9 Eosinophils # 0.1 Basophils # 0.1 Nucleated Red Blood Cells # 0.0 Blood Gas Specimen Source Blood arterial BLMV Arterial Blood Date Drawn 01/04/2017 9:00:29 PM 01/04/2017 9:00:17 PM Arterial Blood pH (Temp corrected) 7.352 Arterial Blood pCO2 (Temp correct) 37.8 Arterial Blood pO2 (Temp corrected) 88.8 Arterial Blood HCO3 20.5 L Arterial Blood Base Excess -4.6 L Arterial Blood Oxygen Saturation 95.9 Jemal Test N/A N/A Arterial Blood Gas Puncture Site A-Line VENOUS LINE Arterial Blood Carboxyhemoglobin 0.3 Arterial Blood Methemoglobin 0.3 Blood Gas A-a O2 Differential 369.7 H Oxyhemoglobin Percent 95.3 Total Hemoglobin 10.5 L Blood Gas Temperature 37.0 37.0 Blood Gas Respiration Rate 12.0 12.0 Blood Gas Actual Respiration Rate 12 12 Blood Gas Modality VENT - AC VENT - AC FiO2 70.0 70.0 Blood Gas Tidal Volume 500.0 500.0 Blood Gas Low PEEP Setting 5.0 5.0 Blood Gas Notified Whom PADMA ROUSE Blood Gas Notified Time 01/04/2017 9:13:06 PM 01/04/2017 10:01:01 PM Venous Blood pO2 (Temp Corrected) 35.2 H Test 01/04/17 20:40 01/04/17 21:20 01/04/17 22:26 01/04/17 23:34 White Blood Count 20.2 #H Red Blood Count 3.32 L Hemoglobin 9.7 L Hematocrit 28.5 L Mean Corpuscular Volume 85.8 Mean Corpuscular Hemoglobin 29.2 Mean Corpuscular Hemoglobin Concent 34.0 Red Cell Distribution Width 16.1 H Platelet Count 85 #L Mean Platelet Volume 9.2 Nucleated Red Blood Cells % 0.0 Platelet Estimate DECREASED Prothrombin Time 27.1 H Prothrombin Time Ratio 2.1 INR International Normalized Ratio 2.48 Activated Partial Thromboplast Time 111.8 *H Sodium Level 144 Potassium Level 3.6 Chloride Level 108 Carbon Dioxide Level 21 Anion Gap 19 #H Blood Urea Nitrogen 9 Creatinine 0.73 Glucose Level 117 # Calcium Level 10.5 H Magnesium Level 2.3 Bedside Glucose 134 137 168 Test 01/05/17 00:42 01/05/17 01:00 01/05/17 01:48 01/05/17 02:35 Bedside Glucose 200 193 183 Potassium Level 4.3 Test 01/05/17 03:20 01/05/17 04:28 01/05/17 04:30 01/05/17 05:00 Bedside Glucose 149 118 White Blood Count 20.9 H Red Blood Count 2.73 L Hemoglobin 8.1 L Hematocrit 23.3 L Mean Corpuscular Volume 85.3 Mean Corpuscular Hemoglobin 29.7 Mean Corpuscular Hemoglobin Concent 34.8 Red Cell Distribution Width 17.4 H Platelet Count 140 # Mean Platelet Volume 9.8 Neutrophils % 85.7 H Lymphocytes % 4.1 L Monocytes % 7.4 Eosinophils % 0.0 Basophils % 0.3 Nucleated Red Blood Cells % 0.0 Neutrophils # 17.9 H Lymphocytes # 0.9 Monocytes # 1.5 H Eosinophils # 0.0 Basophils # 0.1 Nucleated Red Blood Cells # 0.0 Prothrombin Time 19.4 #H Prothrombin Time Ratio 1.5 INR International Normalized Ratio 1.62 Activated Partial Thromboplast Time 56.7 H Sodium Level 142 Potassium Level 3.8 Chloride Level 112 H Carbon Dioxide Level 23 Anion Gap 11 # Blood Urea Nitrogen 11 Creatinine 0.92 Glucose Level 83 Calcium Level 9.6 Phosphorus Level 3.7 Magnesium Level 1.9 Blood Gas Specimen Source Blood arterial Arterial Blood Date Drawn 01/05/2017 4:30:12 AM Arterial Blood pH (Temp corrected) 7.379 Arterial Blood pCO2 (Temp correct) 34.6 L Arterial Blood pO2 (Temp corrected) 226.0 H Arterial Blood HCO3 20.0 L Arterial Blood Base Excess -4.6 L Arterial Blood Oxygen Saturation 98.9 Jemal Test N/A Arterial Blood Gas Puncture Site A-Line Arterial Blood Carboxyhemoglobin 0.1 Arterial Blood Methemoglobin 0 Blood Gas A-a O2 Differential 235.9 H Oxyhemoglobin Percent 98.8 Total Hemoglobin 8.4 L Blood Gas Temperature 37.0 Blood Gas Respiration Rate 12.0 Blood Gas Actual Respiration Rate 15 Blood Gas Modality VENT - AC FiO2 70.0 Blood Gas Tidal Volume 500.0 Blood Gas Low PEEP Setting 5.0 Blood Gas Notified Whom MA Blood Gas Notified Time 01/05/2017 4:41:26 AM Test 01/05/17 05:14 01/05/17 05:35 01/05/17 06:43 Lab Scanned Report BLOOD TRANSFUSION Bedside Glucose 101 128 Medications Medications Current Medications Morphine Sulfate (morphine) 2 mg Q2H PRN IV FOR NON CARDIAC PAIN (4-10) Last administered on 01/03/17 21:33; Admin Dose 2 MG; Start 01/02/17 at 17:00 Clopidogrel Bisulfate (plaVIX) 75 mg DAILY PO Last administered on 01/04/17 09 :50; Admin Dose 75 MG; Start 01/03/17 at 09:00 Atorvastatin Calcium (Lipitor) 40 mg HS PO Last administered on 01/03/17 22:14 ; Admin Dose 40 MG; Start 01/02/17 at 21:00 Metoprolol Tartrate (Lopressor) 25 mg BID PO Last administered on 01/04/17 09: 51; Admin Dose 25 MG; Start 01/02/17 at 21:00 Amitriptyline HCl (Elavil) 75 mg QHS PO Last administered on 01/03/17 22:14; Admin Dose 75 MG; Start 01/03/17 at 21:00 Leflunomide (Arava) 20 mg DAILY PO Last administered on 01/03/17 10:04; Admin Dose 20 MG; Start 01/03/17 at 10:00; Status Future Hold Lisinopril (Zestril) 10 mg DAILY PO Last administered on 01/04/17 09:50; Admin Dose 10 MG; Start 01/03/17 at 10:00 Meclizine HCl (Antivert) 25 mg Q8H PRN PO DIZZINESS; Start 01/03/17 at 08:30 Phenazopyridine HCl (Pyridium) 200 mg TID PO Last administered on 01/04/17 09: 49; Admin Dose 200 MG; Start 01/03/17 at 10:00 Ranitidine HCl (Zantac) 300 mg HS PO Last administered on 01/03/17 22:16; Admin Dose 300 MG; Start 01/03/17 at 21:00 Zolpidem Tartrate 5 mg 5 mg HS PRN PO INSOMNIA Last administered on 01/03/17 22:49; Admin Dose 5 MG; Start 01/03/17 at 23:00 Amiodarone HCl/ Dextrose (Cordarone Iv/ D5W) 500 ml @ 0 mls/hr Q0M IV Last administered on 01/04/17 22:34; Admin Dose 33.3 MLS/HR; Start 01/04/17 at 17:00 ; Stop 01/05/17 at 16:59 Mupirocin 1 applic 1 applic BID TOP Last administered on 01/04/17 23:06; Admin Dose 1 APPLIC; Start 01/04/17 at 21:00 Potassium Chloride 40 meq/ Calcium Chloride 1 gm/Dextrose/ Sodium Chloride 1, 030 ml @ 60 mls/hr [id number] IV Last administered on 01/04/17 22:23; Admin Dose 60 MLS/HR; Start 01/04/17 at 19:59 Cefazolin Sodium (Ancef 1 Gm/50 ml (Pmx)) 50 ml @ 100 mls/hr Q8H IVPB Last administered on 01/05/17 03:29; Admin Dose 100 MLS/HR; Start 01/04/17 at 20:00 ; Stop 01/05/17 at 12:29 Hydromorphone HCl (Dilaudid) 0.2 mg Q15M PRN IV PAIN LEVEL 1-5; Start 01/04/17 at 20:00 Hydromorphone HCl (Dilaudid) 0.4 mg Q15M PRN IV PAIN LEVEL 6-10; Start at 20:00 Oxycodone/ Acetaminophen (Percocet (5/ 325)) 1 tab Q3H PRN PO PAIN LEVEL 1-5; Start 01/04/17 at 20:00 Ondansetron HCl (Zofran Inj) 4 mg Q6H PRN IV NAUSEA AND/OR VOMITING; Start 01/04/17 at 20:00 Famotidine (Pepcid Iv) 20 mg BID@08,20 IV Last administered on 01/04/17 22:23 ; Admin Dose 20 MG; Start 01/04/17 at 20:00 Aspirin (Aspirin) 325 mg DAILY PO ; Start 01/05/17 at 09:00 Acetaminophen 650 mg 650 mg Q3H PRN PO ELEVATED TEMPERATURE; Start 01/04/17 at 20:00 Magnesium Sulfate/ Dextrose (Magnesium Sulfate 1 Gm/D5W) 100 ml @ 100 mls/hr PRN PRN IVPB PENDING LAB VALUE; Start 01/04/17 at 20:00 Diagnostic Test (Pha) (Accu-Chek) 1 ea Q1H XX Last administered on 01/05/17 06 :44; Admin Dose 1 EA; Start 01/04/17 at 20:30 Dextrose (D50w Syringe) 25 ml Q15M PRN IV Till BS 80 mg/dL or above x2; Start 01/04/17 at 20:30 Dextrose 50 ml 50 ml Q15M PRN IV Till BS 80 mg/dL or above x2; Start 01/04/17 at 20:30 Magnesium Sulfate 50 ml @ 25 mls/hr ONCE ONCE IVPB Last administered on 06:46; Admin Dose 25 MLS/HR; Start 01/05/17 at 06:30; Stop 01/05/17 at 08: 29 Levofloxacin/ Dextrose (Levaquin 500mg/ D5W 100 ml (Pmx)) 100 ml @ 100 mls/hr Q24H IVPB Last administered on 01/05/17 06:45; Admin Dose 100 MLS/HR; Start 01/05/17 at 06:30 QING LI Jan 05, 2017 07:12
--- NOTE | 2017-01-05 08:22 | PN ---
DATE: 01/04/2017 SUBJECTIVE: No acute changes. Patient is alert, feels good. Denies pain, discomfort. No fevers. WBC today 8.5, platelets 210, no shift, no bands. BUN 9, creatinine 0.72. MICROBIOLOGY: Urine culture pending. Nares swab was positive for MRSA. ANTIMICROBIALS: The patient is on Levaquin. PHYSICAL EXAMINATION: GENERAL: This is a fragile, well-developed, elderly woman who is alert, in no distress. HEENT: Head atraumatic, normocephalic. Sclerae anicteric. Buccal mucosa pink. NECK: Supple. CHEST: Rise symmetrical. Breath sounds clear. HEART: S1, S2. ABDOMEN: Soft, bowel tones present. EXTREMITIES: Without cyanosis. ASSESSMENT: 1. Recurrent urinary tract infection. 2. Methicillin-resistant Staphylococcus aureus nares colonization. 3. Anemia. 4. Diabetes. 5. Dysphagia. 6. Cachexia. PLAN: The patient remains stable. She is being followed by multiple consultants. 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 Dictated By: WEST LIAO CHRONOMETER REPAIRER for LEIDY ROMERO MD NI/RONALD Conf#: [id number] DID#: [id number] CC: QING LI MD;*EndCC*
[2017-01-05] MEDS: FAMOTIDINE 20 MG INJ IV SCH ×2 (08:31→21:09)
--- NOTE | 2017-01-05 08:51 | OPR ---
DATE OF OPERATION: 01/04/2017 PREOPERATIVE DIAGNOSIS: Cardiac arrest status post percutaneous coronary intervention, 2-vessel cor onary artery disease. POSTOPERATIVE DIAGNOSIS: Cardiac arrest status post percutaneous coronary intervention, 2-vessel co ronary artery disease. PROCEDURE: CABG x2, SHAW to LAD, SVG to distal right coronary artery. SURGEON: Joann Gauthier MD. SKI INSTRUCTOR: Ramiro Jain MD. ANESTHESIOLOGIST: Dr. Turner. FINDINGS: LV function was good pre- and post-revascularization as well as the RV. We did see impro arin septal wall and inferior wall motion. The flow in the SHAW to LAD was 50 mL per minute. The fl ow in the vein graft to the distal RCA was 50 mL per minute. INDICATIONS: The patient is a 76-year-old female who was undergoing PCI of her right coronary arter y and developed a dissection and fibrillated and required insertion of intraaortic balloon pump, and I was asked to take her emergently to surgery. The benefits, risks, alternatives were explained to her entelrov-iu-aiw, who understood and agreed by phone. PROCEDURE IN DETAIL: The patient was brought to the operating room, was placed in supine position. Lines were placed. Antibiotics were given. She was prepped and draped in usual sterile fashion. Median sternotomy was made simultaneous to harvesting the saphenous vein from the left lower extremi ty using skip incisions. SHAW was taken down using clips and cautery. Pericardial was established. Pursestring was placed in the ascending aorta followed by the right atrium. Heparin was given. T he ascending aorta was cannulated followed by 2-stage venous cannula in the right atrium. The [facility] aortic vent was placed. Once all our lines were in place, we commenced cardiopulmonary bypass. We placed a crossclamp on the ascending aorta and arrested the heart using antegrade cardioplegia. We identified the distal RCA. We made an arteriotomy extended with Ruffin scissors and anastomosed our vein graft using 7-0 Prolene in a running fashion in end-to-side manner. We gave more cardiopl egia. We identified the mid LAD, made an arteriotomy extended with Ruffin scissors, anastomosed our SHAW using 7-0 Prolene in a running fashion in end-to-side manner. At this time, we rewarmed the pa tient, gave warm blood, and then removed the crossclamp and cardioverted her back to normal sinus rh ythm, placed ventricular pacing wire, placed a partial clamp on the ascending aorta, made an aortoto my and anastomosed our vein graft using 5-0 Prolene in a running fashion in end-to-side manner. Par tial clamp was removed, vein graft was deaired. Distal hemostasis was achieved. We turned the intr aaortic balloon pump back on and weaned the patient off cardiopulmonary bypass after beginning venti lation. She weaned off without difficulty. Protamine was given. We delined the patient. We place d bilateral pleural tubes as well as anterior mediastinal tube. Once FFP and we achieved hemostasis , we then closed the chest using interrupted cables followed by closure of the fascia using 0 Vicryl followed by closure of skin using 4-0 Monocryl in subcuticular fashion. Lower extremity incisions were closed using 3-0 Vicryl for the deep layer and 4-0 Monocryl for skin. Dressings were applied. Patient was brought to the ICU in critical condition. Dictated By: JOANN PATEL/RONALD Conf#: [id number] DID#: [id number] CC: QING LI MD;*EndCC*
[2017-01-05] MEDS: PHENAZOPYRIDINE 200 MG TAB PO SCH ×3 (09:00→21:00)
[2017-01-05] MEDS: CLOPIDOGREL 75 MG TAB PO SCH (09:00)
--- NOTE | 2017-01-05 09:29 | RADRPT ---
Vent Rate: 90 bpm RR Interval: 0 msec MN Interval: 122 msec QRS Duration: 94 msec QT Interval: 358 msec QTC Interval: 437 msec P-R-T [place]: 57 - -10 - -78 degrees Normal sinus rhythm T wave abnormality, consider inferior ischemia T wave abnormality, consider anterolateral ischemia Abnormal ECG Electronically Signed By: Tommie Gibson [id number]
[2017-01-05] MEDS: MUPIROCIN 2% 22 GM OINT TOP SCH ×2 (11:05→21:09)
--- NOTE | 2017-01-05 11:27 | CONS ---
Date/Time of Note Date/Time of Note DATE: 01/05/17 TIME: 11:26 Assessment/Plan Assessment/Plan Additional Assessment/Plan IMPRESSION: 1. Normochromic normocytic anemia. 2. Dysphagia. 3. Coronary artery disease, non-ST elevation myocardial infarction. 4. Hypertension. 5. Dyslipidemia. 6. Urinary tract infection. 7. Is post emergency coronary artery bypass graft Plan Continue postop care We will do EGD once patient is more stable and if continues to have symptoms of dysphagia Consultation Date/Type/Reason Admit Date/Time Jan 02, 2017 at 17:02 Initial Consult Date 01/04/17 Type of Consultation: Cardiology Referring Provider: QING LI 24 HR Interval Summary Subjective hx not possible: pt non-verbal, pt critical Exam/Review of Systems Vital Signs Vitals Vital Signs Date Time Temp Pulse Resp B/P Pulse Ox O2 Delivery O2 Flow Rate FiO2 01/05/17 10:00 85 21 110/41 100 01/05/17 09:00 98.2 01/05/17 05:32 50 01/02/17 19:08 Nasal Cannula 2.0 Intake and Output 01/04/17 01/04/17 01/05/17 15:00 23:00 07:00 Intake Total 5239 ml 660.6 ml Output Total 2285 ml 1435 ml Balance 2954 ml -774.4 ml Exam Respiratory: other (Patient is on vent) Cardiovascular: nl pulses, regular rate and rhythm Gastrointestinal: nl liver, spleen, non-tender, soft Musculoskeletal: nl extremities to inspection, nl gait and stance Extremities: normal pulses Results Result Diagram: 01/05/17 0430 01/05/17 0430 Results 24 hrs Laboratory Tests Test 01/04/17 19:59 01/04/17 20:30 01/04/17 20:40 01/04/17 21:20 Blood Gas Specimen Source Blood arterial BLMV Arterial Blood Date Drawn 01/04/2017 9:00:29 PM 01/04/2017 9:00:17 PM Arterial Blood pH (Temp corrected) 7.352 Arterial Blood pCO2 (Temp correct) 37.8 Arterial Blood pO2 (Temp corrected) 88.8 Arterial Blood HCO3 20.5 L Arterial Blood Base Excess -4.6 L Arterial Blood Oxygen Saturation 95.9 Jemal Test N/A N/A Arterial Blood Gas Puncture Site A-Line VENOUS LINE Arterial Blood Carboxyhemoglobin 0.3 Arterial Blood Methemoglobin 0.3 Blood Gas A-a O2 Differential 369.7 H Oxyhemoglobin Percent 95.3 Total Hemoglobin 10.5 L Blood Gas Temperature 37.0 37.0 Blood Gas Respiration Rate 12.0 12.0 Blood Gas Actual Respiration Rate 12 12 Blood Gas Modality VENT - AC VENT - AC FiO2 70.0 70.0 Blood Gas Tidal Volume 500.0 500.0 Blood Gas Low PEEP Setting 5.0 5.0 Blood Gas Notified Whom PADMA ROUSE Blood Gas Notified Time 01/04/2017 9:13:06 PM 01/04/2017 10:01:01 PM Venous Blood pO2 (Temp Corrected) 35.2 H White Blood Count 20.2 #H Red Blood Count 3.32 L Hemoglobin 9.7 L Hematocrit 28.5 L Mean Corpuscular Volume 85.8 Mean Corpuscular Hemoglobin 29.2 Mean Corpuscular Hemoglobin Concent 34.0 Red Cell Distribution Width 16.1 H Platelet Count 85 #L Mean Platelet Volume 9.2 Nucleated Red Blood Cells % 0.0 Platelet Estimate DECREASED Prothrombin Time 27.1 H Prothrombin Time Ratio 2.1 INR International Normalized Ratio 2.48 Activated Partial Thromboplast Time 111.8 *H Sodium Level 144 Potassium Level 3.6 Chloride Level 108 Carbon Dioxide Level 21 Anion Gap 19 #H Blood Urea Nitrogen 9 Creatinine 0.73 Glucose Level 117 # Calcium Level 10.5 H Magnesium Level 2.3 Bedside Glucose 134 Test 01/04/17 22:26 01/04/17 23:34 01/05/17 00:42 01/05/17 01:00 Bedside Glucose 137 168 200 Potassium Level 4.3 Test 01/05/17 01:48 01/05/17 02:35 01/05/17 03:20 01/05/17 04:28 Bedside Glucose 193 183 149 118 Test 01/05/17 04:30 01/05/17 05:00 01/05/17 05:14 01/05/17 05:35 White Blood Count 20.9 H Red Blood Count 2.73 L Hemoglobin 8.1 L Hematocrit 23.3 L Mean Corpuscular Volume 85.3 Mean Corpuscular Hemoglobin 29.7 Mean Corpuscular Hemoglobin Concent 34.8 Red Cell Distribution Width 17.4 H Platelet Count 140 # Mean Platelet Volume 9.8 Neutrophils % 85.7 H Lymphocytes % 4.1 L Monocytes % 7.4 Eosinophils % 0.0 Basophils % 0.3 Nucleated Red Blood Cells % 0.0 Neutrophils # 17.9 H Lymphocytes # 0.9 Monocytes # 1.5 H Eosinophils # 0.0 Basophils # 0.1 Nucleated Red Blood Cells # 0.0 Prothrombin Time 19.4 #H Prothrombin Time Ratio 1.5 INR International Normalized Ratio 1.62 Activated Partial Thromboplast Time 56.7 H Sodium Level 142 Potassium Level 3.8 Chloride Level 112 H Carbon Dioxide Level 23 Anion Gap 11 # Blood Urea Nitrogen 11 Creatinine 0.92 Glucose Level 83 Calcium Level 9.6 Phosphorus Level 3.7 Magnesium Level 1.9 Blood Gas Specimen Source Blood arterial Arterial Blood Date Drawn 01/05/2017 4:30:12 AM Arterial Blood pH (Temp corrected) 7.379 Arterial Blood pCO2 (Temp correct) 34.6 L Arterial Blood pO2 (Temp corrected) 226.0 H Arterial Blood HCO3 20.0 L Arterial Blood Base Excess -4.6 L Arterial Blood Oxygen Saturation 98.9 Jemal Test N/A Arterial Blood Gas Puncture Site A-Line Arterial Blood Carboxyhemoglobin 0.1 Arterial Blood Methemoglobin 0 Blood Gas A-a O2 Differential 235.9 H Oxyhemoglobin Percent 98.8 Total Hemoglobin 8.4 L Blood Gas Temperature 37.0 Blood Gas Respiration Rate 12.0 Blood Gas Actual Respiration Rate 15 Blood Gas Modality VENT - AC FiO2 70.0 Blood Gas Tidal Volume 500.0 Blood Gas Low PEEP Setting 5.0 Blood Gas Notified Whom MA Blood Gas Notified Time 01/05/2017 4:41:26 AM Lab Scanned Report BLOOD TRANSFUSION Bedside Glucose 101 Test 01/05/17 06:43 01/05/17 08:06 01/05/17 10:28 Bedside Glucose 128 150 154 Medications Medications Current Medications Morphine Sulfate (morphine) 2 mg Q2H PRN IV FOR NON CARDIAC PAIN (4-10) Last administered on 01/03/17 21:33; Admin Dose 2 MG; Start 01/02/17 at 17:00 Clopidogrel Bisulfate (plaVIX) 75 mg DAILY PO Last administered on 01/04/17 09 :50; Admin Dose 75 MG; Start 01/03/17 at 09:00 Atorvastatin Calcium (Lipitor) 40 mg HS PO Last administered on 01/03/17 22:14 ; Admin Dose 40 MG; Start 01/02/17 at 21:00 Amitriptyline HCl (Elavil) 75 mg QHS PO Last administered on 01/03/17 22:14; Admin Dose 75 MG; Start 01/03/17 at 21:00 Leflunomide (Arava) 20 mg DAILY PO Last administered on 01/03/17 10:04; Admin Dose 20 MG; Start 01/03/17 at 10:00; Status Future Hold Meclizine HCl (Antivert) 25 mg Q8H PRN PO DIZZINESS; Start 01/03/17 at 08:30 Phenazopyridine HCl (Pyridium) 200 mg TID PO Last administered on 01/04/17 09: 49; Admin Dose 200 MG; Start 01/03/17 at 10:00 Ranitidine HCl (Zantac) 300 mg HS PO Last administered on 01/03/17 22:16; Admin Dose 300 MG; Start 01/03/17 at 21:00 Zolpidem Tartrate 5 mg 5 mg HS PRN PO INSOMNIA Last administered on 01/03/17 22:49; Admin Dose 5 MG; Start 01/03/17 at 23:00 Amiodarone HCl/ Dextrose (Cordarone Iv/ D5W) 500 ml @ 0 mls/hr Q0M IV Last administered on 01/04/17 22:34; Admin Dose 33.3 MLS/HR; Start 01/04/17 at 17:00 ; Stop 01/05/17 at 16:59 Mupirocin 1 applic 1 applic BID TOP Last administered on 01/05/17 11:05; Admin Dose 1 APPLIC; Start 01/04/17 at 21:00 Potassium Chloride 40 meq/ Calcium Chloride 1 gm/Dextrose/ Sodium Chloride 1, 030 ml @ 60 mls/hr [id number] IV Last administered on 01/04/17 22:23; Admin Dose 60 MLS/HR; Start 01/04/17 at 19:59 Cefazolin Sodium (Ancef 1 Gm/50 ml (Pmx)) 50 ml @ 100 mls/hr Q8H IVPB Last administered on 01/05/17 03:29; Admin Dose 100 MLS/HR; Start 01/04/17 at 20:00 ; Stop 01/05/17 at 12:29 Hydromorphone HCl (Dilaudid) 0.2 mg Q15M PRN IV PAIN LEVEL 1-5 Last administered on 01/05/17 09:19; Admin Dose 0.2 MG; Start 01/04/17 at 20:00 Hydromorphone HCl (Dilaudid) 0.4 mg Q15M PRN IV PAIN LEVEL 6-10; Start at 20:00 Oxycodone/ Acetaminophen (Percocet (5/ 325)) 1 tab Q3H PRN PO PAIN LEVEL 1-5; Start 01/04/17 at 20:00 Ondansetron HCl (Zofran Inj) 4 mg Q6H PRN IV NAUSEA AND/OR VOMITING; Start 01/04/17 at 20:00 Famotidine (Pepcid Iv) 20 mg BID@08,20 IV Last administered on 01/05/17 08:31 ; Admin Dose 20 MG; Start 01/04/17 at 20:00 Aspirin (Aspirin) 325 mg DAILY PO ; Start 01/05/17 at 09:00 Acetaminophen 650 mg 650 mg Q3H PRN PO ELEVATED TEMPERATURE; Start 01/04/17 at 20:00 Magnesium Sulfate/ Dextrose (Magnesium Sulfate 1 Gm/D5W) 100 ml @ 100 mls/hr PRN PRN IVPB PENDING LAB VALUE; Start 01/04/17 at 20:00 Diagnostic Test (Pha) (Accu-Chek) 1 ea Q1H XX Last administered on 01/05/17 06 :44; Admin Dose 1 EA; Start 01/04/17 at 20:30 Dextrose (D50w Syringe) 25 ml Q15M PRN IV Till BS 80 mg/dL or above x2; Start 01/04/17 at 20:30 Dextrose 50 ml 50 ml Q15M PRN IV Till BS 80 mg/dL or above x2; Start 01/04/17 at 20:30 Levofloxacin/ Dextrose 100 ml @ 100 mls/hr Q24H IVPB Last administered on 01/05 06:45; Admin Dose 100 MLS/HR; Start 01/05/17 at 06:30 Cefepime HCl (Maxipime 1gm/50 ml (Pmx)) 50 ml @ 100 mls/hr Q12 IVPB ; Start at 11:30; Status UNEVY VILLARREAL MD Jan 05, 2017 11:27
[2017-01-05] MEDS ORDERED: VANCOMYCIN IV PER PHARMACY XX SCH (11:30)
[2017-01-05] MEDS ORDERED: VANCOMYCIN 1 GM in NS 250 ML IVPB ONE (12:00)
--- NOTE | 2017-01-05 12:06 | CONS ---
Date/Time of Note Date/Time of Note DATE: 01/05/17 TIME: 11:59 Assessment/Plan Assessment/Plan Additional Assessment/Plan Chest x-ray was reviewed from today which is essentially clear. Intra-aortic balloon pump has been removed. Ventilator setting; AC of 12, tidal volume 500, PEEP of 5, 40% FiO2. Assessment and recommendations; 1. Patient admitted with non-STEMI , underwent coronary angiography then required emergent CABG. 2. Status post CPR lasting 10 minutes with revival of vital signs. Patient currently is hemodynamically stable, off pressor support. Amiodarone drip on a tapering dose. 3. Leukocytosis. Etiology is unclear possibly early aspiration. Patient currently on appropriate antibiotic regimen. 4. Anemia. 5. History of chronic urinary retention, with placement of Jang catheter on a chronic basis. 6. Patient currently not in a position to be extubated. 7. Possibly pain. 8. Apparent preservation of mental status despite undergoing CPR. Add fentanyl drip at 25 mics per hour. Continue current supportive care for additional 24 hours. Patient to be reassessed in 24 hours for possible weaning from ventilator. Obtain follow-up chest x-ray in 24 hours. Consultation Date/Type/Reason Admit Date/Time Jan 02, 2017 at 17:02 Date of Consultation: Jan 05, 2017 Type of Consultation: Pulmonary/critical care Reason for Consultation Pulmonary consultation requested for evaluation of postop respiratory failure. History of presenting illness; patient is a 76-year-old white lady who was admitted 2 days ago with complaints of chest pain and shortness of breath. Patient was diagnosed with non-STEMI and underwent coronary angiography yesterday evening. However the patient decompensated requiring emergent coronary artery bypass surgery. The patient also had episode of ventricular fibrillation requiring 10 minutes CPR with revival of vital signs during coronary angiography. The time I saw the patient in ICU, the patient is orally intubated and follows simple commands. Patient has been off sedation. Also was hemodynamically unstable but now is off pressor support with stable vital signs. Maintained on amiodarone drip. Past medical history; 1. Patient with history of prior coronary artery disease. 2. Hypertension. 3. Diabetes. 4. Chronic Jang catheter placement. Medications; reviewed. Allergies; sulfa drugs. Family history, occupational history, social histories are not available. Next Review of systems; limited review of systems could be obtained. As any abdominal pain. Complains of mild chest pain. Complains of shortness of breath. General exam; elderly woman, orally intubated, awake, appears mildly anxious. Psychological: nl mood/affect, no complaints Past Medical History Medical History: no pertinent history, angina Social History Alcohol Use: none Smoking Status: Never smoker Exam/Review of Systems Vital Signs Vitals Vital Signs Date Time Temp Pulse Resp B/P Pulse Ox O2 Delivery O2 Flow Rate FiO2 01/05/17 10:00 85 21 110/41 100 01/05/17 09:00 98.2 01/05/17 05:32 50 01/02/17 19:08 Nasal Cannula 2.0 Intake and Output 01/04/17 01/04/17 01/05/17 15:00 23:00 07:00 Intake Total 5239 ml 660.6 ml Output Total 2285 ml 1435 ml Balance 2954 ml -774.4 ml Exam HEENT exam; supple neck, no JVD. No lymphadenopathy. Midline trachea. No thyromegaly. Orally intubated. Patient has a multiple carious teeth. Pupils are small bilaterally. Chest exam; diminished but clear breath sounds. S1-S2 audible, no murmurs. Regular rhythm. Sternal dressing in place. Chest tubes are in place. Abdomen exam; soft, scaphoid. No organomegaly. Bowel sounds audible. Nontender. Extremity exam; no edema. SKEIN TIER exam; patient is awake and moves all 4 extremities. Results Result Diagram: 01/05/17 0430 01/05/17 0430 Results 24 hrs Laboratory Tests Test 01/04/17 19:59 01/04/17 20:30 01/04/17 20:40 01/04/17 21:20 Blood Gas Specimen Source Blood arterial BLMV Arterial Blood Date Drawn 01/04/2017 9:00:29 PM 01/04/2017 9:00:17 PM Arterial Blood pH (Temp corrected) 7.352 Arterial Blood pCO2 (Temp correct) 37.8 Arterial Blood pO2 (Temp corrected) 88.8 Arterial Blood HCO3 20.5 L Arterial Blood Base Excess -4.6 L Arterial Blood Oxygen Saturation 95.9 Jemal Test N/A N/A Arterial Blood Gas Puncture Site A-Line VENOUS LINE Arterial Blood Carboxyhemoglobin 0.3 Arterial Blood Methemoglobin 0.3 Blood Gas A-a O2 Differential 369.7 H Oxyhemoglobin Percent 95.3 Total Hemoglobin 10.5 L Blood Gas Temperature 37.0 37.0 Blood Gas Respiration Rate 12.0 12.0 Blood Gas Actual Respiration Rate 12 12 Blood Gas Modality VENT - AC VENT - AC FiO2 70.0 70.0 Blood Gas Tidal Volume 500.0 500.0 Blood Gas Low PEEP Setting 5.0 5.0 Blood Gas Notified Whom PADMA ROUSE Blood Gas Notified Time 01/04/2017 9:13:06 PM 01/04/2017 10:01:01 PM Venous Blood pO2 (Temp Corrected) 35.2 H White Blood Count 20.2 #H Red Blood Count 3.32 L Hemoglobin 9.7 L Hematocrit 28.5 L Mean Corpuscular Volume 85.8 Mean Corpuscular Hemoglobin 29.2 Mean Corpuscular Hemoglobin Concent 34.0 Red Cell Distribution Width 16.1 H Platelet Count 85 #L Mean Platelet Volume 9.2 Nucleated Red Blood Cells % 0.0 Platelet Estimate DECREASED Prothrombin Time 27.1 H Prothrombin Time Ratio 2.1 INR International Normalized Ratio 2.48 Activated Partial Thromboplast Time 111.8 *H Sodium Level 144 Potassium Level 3.6 Chloride Level 108 Carbon Dioxide Level 21 Anion Gap 19 #H Blood Urea Nitrogen 9 Creatinine 0.73 Glucose Level 117 # Calcium Level 10.5 H Magnesium Level 2.3 Bedside Glucose 134 Test 01/04/17 22:26 01/04/17 23:34 01/05/17 00:42 01/05/17 01:00 Bedside Glucose 137 168 200 Potassium Level 4.3 Test 01/05/17 01:48 01/05/17 02:35 01/05/17 03:20 01/05/17 04:28 Bedside Glucose 193 183 149 118 Test 01/05/17 04:30 01/05/17 05:00 01/05/17 05:14 01/05/17 05:35 White Blood Count 20.9 H Red Blood Count 2.73 L Hemoglobin 8.1 L Hematocrit 23.3 L Mean Corpuscular Volume 85.3 Mean Corpuscular Hemoglobin 29.7 Mean Corpuscular Hemoglobin Concent 34.8 Red Cell Distribution Width 17.4 H Platelet Count 140 # Mean Platelet Volume 9.8 Neutrophils % 85.7 H Lymphocytes % 4.1 L Monocytes % 7.4 Eosinophils % 0.0 Basophils % 0.3 Nucleated Red Blood Cells % 0.0 Neutrophils # 17.9 H Lymphocytes # 0.9 Monocytes # 1.5 H Eosinophils # 0.0 Basophils # 0.1 Nucleated Red Blood Cells # 0.0 Prothrombin Time 19.4 #H Prothrombin Time Ratio 1.5 INR International Normalized Ratio 1.62 Activated Partial Thromboplast Time 56.7 H Sodium Level 142 Potassium Level 3.8 Chloride Level 112 H Carbon Dioxide Level 23 Anion Gap 11 # Blood Urea Nitrogen 11 Creatinine 0.92 Glucose Level 83 Calcium Level 9.6 Phosphorus Level 3.7 Magnesium Level 1.9 Blood Gas Specimen Source Blood arterial Arterial Blood Date Drawn 01/05/2017 4:30:12 AM Arterial Blood pH (Temp corrected) 7.379 Arterial Blood pCO2 (Temp correct) 34.6 L Arterial Blood pO2 (Temp corrected) 226.0 H Arterial Blood HCO3 20.0 L Arterial Blood Base Excess -4.6 L Arterial Blood Oxygen Saturation 98.9 Jemal Test N/A Arterial Blood Gas Puncture Site A-Line Arterial Blood Carboxyhemoglobin 0.1 Arterial Blood Methemoglobin 0 Blood Gas A-a O2 Differential 235.9 H Oxyhemoglobin Percent 98.8 Total Hemoglobin 8.4 L Blood Gas Temperature 37.0 Blood Gas Respiration Rate 12.0 Blood Gas Actual Respiration Rate 15 Blood Gas Modality VENT - AC FiO2 70.0 Blood Gas Tidal Volume 500.0 Blood Gas Low PEEP Setting 5.0 Blood Gas Notified Whom MA Blood Gas Notified Time 01/05/2017 4:41:26 AM Lab Scanned Report BLOOD TRANSFUSION Bedside Glucose 101 Test 01/05/17 06:43 01/05/17 08:06 01/05/17 10:28 Bedside Glucose 128 150 154 Medications Medications Current Medications Morphine Sulfate (morphine) 2 mg Q2H PRN IV FOR NON CARDIAC PAIN (4-10) Last administered on 01/03/17 21:33; Admin Dose 2 MG; Start 01/02/17 at 17:00 Clopidogrel Bisulfate (plaVIX) 75 mg DAILY PO Last administered on 01/04/17 09 :50; Admin Dose 75 MG; Start 01/03/17 at 09:00 Atorvastatin Calcium (Lipitor) 40 mg HS PO Last administered on 01/03/17 22:14 ; Admin Dose 40 MG; Start 01/02/17 at 21:00 Amitriptyline HCl (Elavil) 75 mg QHS PO Last administered on 01/03/17 22:14; Admin Dose 75 MG; Start 01/03/17 at 21:00 Leflunomide (Arava) 20 mg DAILY PO Last administered on 01/03/17 10:04; Admin Dose 20 MG; Start 01/03/17 at 10:00; Status Future Hold Meclizine HCl (Antivert) 25 mg Q8H PRN PO DIZZINESS; Start 01/03/17 at 08:30 Phenazopyridine HCl (Pyridium) 200 mg TID PO Last administered on 01/04/17 09: 49; Admin Dose 200 MG; Start 01/03/17 at 10:00 Ranitidine HCl (Zantac) 300 mg HS PO Last administered on 01/03/17 22:16; Admin Dose 300 MG; Start 01/03/17 at 21:00 Zolpidem Tartrate 5 mg 5 mg HS PRN PO INSOMNIA Last administered on 01/03/17 22:49; Admin Dose 5 MG; Start 01/03/17 at 23:00 Amiodarone HCl/ Dextrose (Cordarone Iv/ D5W) 500 ml @ 0 mls/hr Q0M IV Last administered on 01/04/17 22:34; Admin Dose 33.3 MLS/HR; Start 01/04/17 at 17:00 ; Stop 01/05/17 at 16:59 Mupirocin 1 applic 1 applic BID TOP Last administered on 01/05/17 11:05; Admin Dose 1 APPLIC; Start 01/04/17 at 21:00 Potassium Chloride/Calcium Chloride/Dextrose/ Sodium Chloride (KCl/Ca Chloride/ D5-1/4ns) 1,030 ml @ 60 mls/hr [id number] IV Last administered on 01/04/17 22:23 ; Admin Dose 60 MLS/HR; Start 01/04/17 at 19:59 Hydromorphone HCl (Dilaudid) 0.2 mg Q15M PRN IV PAIN LEVEL 1-5 Last administered on 01/05/17 09:19; Admin Dose 0.2 MG; Start 01/04/17 at 20:00 Hydromorphone HCl (Dilaudid) 0.4 mg Q15M PRN IV PAIN LEVEL 6-10; Start at 20:00 Oxycodone/ Acetaminophen (Percocet (5/ 325)) 1 tab Q3H PRN PO PAIN LEVEL 1-5; Start 01/04/17 at 20:00 Ondansetron HCl (Zofran Inj) 4 mg Q6H PRN IV NAUSEA AND/OR VOMITING; Start 01/04/17 at 20:00 Famotidine (Pepcid Iv) 20 mg BID@08,20 IV Last administered on 01/05/17 08:31 ; Admin Dose 20 MG; Start 01/04/17 at 20:00 Aspirin (Aspirin) 325 mg DAILY PO ; Start 01/05/17 at 09:00 Acetaminophen 650 mg 650 mg Q3H PRN PO ELEVATED TEMPERATURE; Start 01/04/17 at 20:00 Magnesium Sulfate/ Dextrose (Magnesium Sulfate 1 Gm/D5W) 100 ml @ 100 mls/hr PRN PRN IVPB PENDING LAB VALUE; Start 01/04/17 at 20:00 Diagnostic Test (Pha) (Accu-Chek) 1 ea Q1H XX Last administered on 01/05/17 06 :44; Admin Dose 1 EA; Start 01/04/17 at 20:30 Dextrose (D50w Syringe) 25 ml Q15M PRN IV Till BS 80 mg/dL or above x2; Start 01/04/17 at 20:30 Dextrose 50 ml 50 ml Q15M PRN IV Till BS 80 mg/dL or above x2; Start 01/04/17 at 20:30 Levofloxacin/ Dextrose 100 ml @ 100 mls/hr Q24H IVPB Last administered on 01/05 06:45; Admin Dose 100 MLS/HR; Start 01/05/17 at 06:30 Cefepime HCl 50 ml @ 100 mls/hr Q12 IVPB ; Start 01/05/17 at 13:00 Vancomycin HCl (Vancocin) 250 ml @ 125 mls/hr ONCE ONCE IVPB ; Start 01/05/17 at 12:00; Stop 01/05/17 at 13:59 RADHAMES DODD Jan 05, 2017 12:06
[2017-01-05] MEDS: ASPIRIN 325 MG TAB PO SCH (12:43)
[2017-01-05] MEDS ORDERED: FENTAnyl (DRIP) 1000 mcg/100mL 100 ML IV SCH (13:00)
--- NOTE | 2017-01-05 13:01 | PN ---
DATE: 01/05/2017 SUBJECTIVE: Yesterday, the patient after attempting cardiac catheterization had a dissection of rig ht RCA. The patient then went into cardiac arrest, but was able to be revived. The patient went in to cardiogenic shock and was seen by Dr. Gauthier, and had a CABG performed of 2 vessels. The patient is currently now in the intensive care unit on pressor support and inotropic support. No other even ts noted. No hemoptysis, hematemesis or hematochezia. OBJECTIVE: VITAL SIGNS: Blood pressure is 97/38, respirations 24, pulse 86, temperature 98.3. HEENT: Head is normocephalic. NECK: Supple. HEART: Regular rate. LUNGS: Show diminished breath sounds at base. There are noted chest tubes. ABDOMEN: Soft, nontender to palpation without rebound or guarding. EXTREMITIES: Negative for clubbing, cyanosis, or edema. LABORATORY DATA: Shows white count 20.9, hemoglobin 8.1, hematocrit 23.3, platelet count 140. Sodi um 142, potassium 3.8. BUN 11, creatinine 0.92. ASSESSMENT AND PLAN: 1. Coronary artery disease, status post CABG, performed emergently, 2-vessel. Continue current med ical management and follow up with CT surgery. 2. Non-ST elevation myocardial infarction, status post attempt of cardiac catheterization with comp lications including the RCA dissection, requiring emergent CABG. Continue medical management and fo llow up with cardiology. 3. Status post cardiac arrest. The patient had spontaneous return of circulation, continue to flash tor. 4. Cardiogenic shock. Continue inotropic support on diuretic therapy. 5. Ventilator dependent respiratory failure. Vent settings and ABGs reviewed. Continue to monitor . Place a pulmonary consult for evaluation. 6. Anemia. Monitor hemoglobin and hematocrit levels. 7. History of urinary tract infection. The patient has elevated white count. We will follow up wi th infectious disease. Consider empiric antibiotics. 8. Dysphagia. GI consultation was placed. Will follow up with recommendations once the patient is clinically stable. 9. Diabetes. Continue insulin drip. Continue current management. 10. Depression. Continue Elavil. 11. Gastrointestinal and deep venous thrombosis prophylaxis. 12. History of arthritis. The patient is on Arava. Will continue to monitor. Please note I spent over 30 minutes of critical care time with this patient. Dictated By: PIEDAD LAUREN/RONALD Conf#: [id number] DID#: [id number]
[2017-01-05 13:29] LABS: ADD UMIC YES; UR ASCORBIC ACID NEGATIVE (NEGATIVE); UR BACTERIA FEW /HPF (NONE SEEN); UR BILIRUBIN (Dip) NEGATIVE (NEGATIVE); UR BLOOD (Dip) 1+ mg/dL (NEGATIVE); UR CLARITY CLEAR (CLEAR); UR COLOR AMBER (YELLOW); UR GLUCOSE (Dip) NEGATIVE (NEGATIVE); UR KETONES (Dip) NEGATIVE (NEGATIVE); UR LEUKOCYTE ESTERASE (Dip) NEGATIVE Leu/ul (NEGATIVE); UR MUCUS FEW /HPF (NONE SEEN); UR NITRITE (Dip) POSITIVE (NEGATIVE); UR RBC 7 /HPF (0-5); UR SPECIFIC GRAVITY (Dip) 1.019 (1.003-1.030); UR TOTAL PROTEIN (Dip) NEGATIVE (NEGATIVE); UR UROBILINOGEN (Dip) 1+ mg/dL (NEGATIVE)
[2017-01-05] MEDS: CEFEPIME 1GM/50 ML (PMX) 50 ML IVPB SCH ×2 (13:54→21:09)
[2017-01-05 14:17] LABS: MICROALBUMIN 3.3 mg/dL
--- NOTE | 2017-01-05 14:48 | PN ---
DATE: 01/05/2017 SUBJECTIVE: The patient is status post CABG yesterday, currently in ICU. She had cardiac arrest po st-percutaneous coronary intervention. She is awake, comfortable on vent and afebrile. VITAL SIGNS: Temperature 98.2, pulse 85, respirations 20, blood pressure 110/41, saturation 100 on vent. LABORATORY DATA: WBC 20.9, H and H 8.1 and 23.3, platelets 140, neutrophils 85.7. BUN 11, creatini ne 0.92. Sodium 142. DIAGNOSTICS: Chest x-ray this morning revealed stable bilateral apical pneumothoraces less than 5%, persistent small left pleural effusion and/or atelectasis. Sternotomy wires and extensive postoper ative changes support devices in stable position. INDWELLINGS: Endotracheal tube, NG tube, right IJ [place]-Pete catheter with introducers, suprapubic catheter and 2 chest tubes. ANTIMICROBIALS: The patient remains on Levaquin. She is on Ancef postoperatively. PHYSICAL EXAMINATION: GENERAL: This is a fragile, well-developed, elderly woman who looks comfortable on vent. HEENT: Head atraumatic, normocephalic. Sclerae anicteric. Buccal mucosa dry. NECK: Supple, trachea midline. CHEST: Rise symmetrical. Breath sounds diminished to bases. HEART: S1, S2. ABDOMEN: Soft, bowel tones present. EXTREMITIES: Without cyanosis. ASSESSMENT: 1. Systemic inflammatory response syndrome with leukocytosis, likely reactive. Rule out infectious . 2. Status post emergent coronary artery bypass graft post-cardiac arrest. 3. Respiratory failure. 4. Status post recent urinary tract infection. 5. Diabetes. 6. Chronic suprapubic catheter. 7. Methicillin-resistant Staphylococcus aureus nares colonization. PLAN: We are going to change antibiotics to vancomycin and cefepime. Discontinue Levaquin and cont inue Bactroban to nares. Repeat cultures if patient spikes fever. We will order blood and urine cu ltures. Monitor chest x-ray. Follow recommendations of consultants. Dictated By: WEST LIAO FUEL CELL TECHNICIAN for LEIDY WANG/RONALD Conf#: [id number] DID#: [id number]
[2017-01-05 17:23] LABS: AADO2 Arterial 151.8 mmHg (7.0-24.0); Arterial Base Excess -7.3 mmol/L (-3.0-3); Arterial COHb 0.3 % (0.0-3.0); Arterial Fraction of Oxyhgb 96.5 % (93.0-99.0); Arterial HCO3 16.9 mmol/L (22.0-26.0); Arterial MetHb 0.1 % (0.0-1.5); Arterial Total Hemglobin 7.8 g/dl (12.0-18.0); Blood Gas PS 10; MODE VENT - CPAP
[2017-01-05] MEDS ORDERED: NA BICARBONATE 8.4% 50 ML SYG ONE (17:57)
[2017-01-05] MEDS ORDERED: NA BICARBONATE 8.4% 50 ML SYG IV ONE (18:00)
--- NOTE | 2017-01-05 18:22 | RADRPT ---
Echocardiogram Report Patient Name: CAITLIN TAPIA Gender: Female Date: 1940 Study Date: 05-Jan-2017 Screen Making Supervisor: Shayy [facility] Location: [facility] Ref. Physician: QING LIMA Quality: Technically Difficult Study Procedures: Transthoracic echocardiogram with complete 2D, M-Mode, and doppler examination. Indications: Post CABG. 2D/M Mode Doppler Measurement Value Normal Ranges Measurement Value Normal Ranges LVIDd 2D 2.5 3.5 - 5.6 cm AV Peak Destin 1.2 m/sec LVIDs 2D 1.8 2.1 - 4.1 cm AV Peak PG 6.0 mmHg FS 2D 30.7 % LVOT Peak Destin 1.1 m/sec LVPWd 2D 1.1 0.6 - 1.1 cm LVOT Peak PG 5.0 mmHg IVSd 2D 1.5 0.6 - 1.1 cm MV E Peak Destin 0.6 m/sec IVS/LVPW 2D 1.4 MV A Peak Destin 0.6 m/sec AoR Diam 2D 2.3 2.0 - 3.7 cm MV E/A 1.2 LA/Ao 2D 1 0 - 1 MV Decel Time 162 msec EDV 2D 16.4 cm3 MV E/A 1.2 ESV 2D 5.4 cm3 LA Dimen 2D 2.4 2.3 - 4.0 cm Findings Left Ventricle: Normal left ventricular systolic function. Normal left ventricular cavity size. Ejection fraction is visually estimated at 60 %. Tissue Doppler/Mitral Doppler indices are consistent with impaired relaxation (Stage I diastolic dysfunction). Resting Segmental Wall Motion Analysis: Mild hypokinesis of the basal inferior wall. Right Ventricle: Normal right ventricular size. Normal right ventricular systolic function. Left Atrium: The left atrium is normal in size. Right Atrium: The right atrium is normal in size. Mitral Valve: Mild mitral leaflet calcification. Mild mitral annular calcification. Trace mitral regurgitation. Aortic Valve: No significant aortic stenosis or insufficiency. Aortic cusps appear mildly calcified. Tricuspid Valve: Normal appearance of the tricuspid valve. Unable to obtain RVSP due to minimal presence of tricuspid regurgitation. There is trace tricuspid regurgitation. Pulmonic Valve: Pulmonic valve not well visualized. Pericardium: Normal pericardium with no significant pericardial effusion. Pleural effusion seen. Aorta: Normal aortic root. IVC: Inferior vena cava without respiratory collapse, however, patient on ventilator. Conclusions 1.Normal left ventricular systolic function. Normal left ventricular cavity size. Ejection fraction is visually estimated at 60 %. Tissue Doppler/Mitral Doppler indices are consistent with impaired relaxation (Stage I diastolic dysfunction). Mild hypokinesis of the basal inferior wall. 2.No significant valvular stenosis or regurgitation seen. 3.Unable to obtain RVSP due to minimal presence of tricuspid regurgitation. Inferior vena cava without respiratory collapse, however, patient on ventilator. Electronically Signed By: Qing Lima 05-Jan-2017 18:21:31 -0700 Patient Name: CAITLIN TAPIA Study Date: 05-Jan-2017 [id number]
[2017-01-05] MEDS: morphine 2 MG INJ IV PRN ×2 (19:18→23:47)
[2017-01-05 19:25] LABS: AADO2 Arterial 146.5 mmHg (7.0-24.0); Arterial Base Excess -3.1 mmol/L (-3.0-3); Arterial COHb 0.1 % (0.0-3.0); Arterial Fraction of Oxyhgb 94.1 % (93.0-99.0); Arterial HCO3 20.3 mmol/L (22.0-26.0); Arterial MetHb 0 % (0.0-1.5); Arterial Total Hemglobin 8.1 g/dl (12.0-18.0); MODE NASAL CANNULA
[2017-01-05] MEDS: NITROGLYCERIN 50 MG/D5W (PMX) 250 ML IV SCH (20:47)
[2017-01-05] MEDS: RANITIDINE 150 MG TAB PO SCH (21:08)
[2017-01-05] MEDS: AMITRIPTYLINE 25 MG TAB PO SCH (21:08)
[2017-01-05] MEDS: ZOLPIDEM 5 MG TAB PO PRN (21:08)
[2017-01-05] MEDS: ATORVASTATIN 40 MG TAB PO SCH (21:09)
[2017-01-05 21:25] LABS: MAGNESIUM 2.4 mg/dl (1.7-2.5); POTASSIUM 4.4 mmol/L (3.5-5.1)
[2017-01-05] MEDS: POTASSIUM CHLORIDE 40 MEQ, CALCIUM CHLORIDE 10% 1 GM in DEXTROSE 5%-0.225% NACL 1,000 ML IV SCH (21:27)
[2017-01-05] MEDS: METOPROLOL 25 MG TAB PO SCH (22:52)
[2017-01-06] VITALS (66 sets, daily range): BP systolic 98–154; BP diastolic 42–131; PULSE 60–164; RESP 11–38
[2017-01-06] MEDS: morphine 2 MG INJ IV PRN ×3 (03:13→12:02)
[2017-01-06 04:30] LABS: BASOPHIL # 0.1 10^3/ul (0.0-0.1); BASOPHILS % 0.4 % (0.0-2.0); EOSINOPHILS % 0.1 % (0.0-7.0); HEMATOCRIT 22.2 % (37.0-47.0); HEMOGLOBIN 7.6 g/dl (12.0-16.0); LYMPHOCYTES # 1.2 10^3/ul (0.8-2.9); LYMPHOCYTES % 7.5 % (15.0-51.0); MEAN CORPUSCULAR HGB CONC 34.2 g/dl (32.0-37.0); MEAN CORPUSCULAR VOLUME 84.7 fl (82.0-101.0); MONOCYTE # 1.5 10^3/ul (0.3-0.9); NEUTROPHIL # 13.4 10^3/ul (1.6-7.5); NEUTROPHILS % 81.5 % (39.0-77.0); PLATELET COUNT 110 10^3/UL (140-415); RED BLOOD COUNT 2.62 10^6/ul (4.20-5.40); RED CELL DISTRIBUTION WIDTH 17.2 % (11.5-14.5); WHITE BLOOD COUNT 16.5 10^3/ul (4.8-10.8)
[2017-01-06 04:48] LABS: INR 1.74; PROTIME 20.5 Sec (12.2-14.2); PT RATIO 1.6
[2017-01-06 04:49] LABS: PARTIAL THROMBOPLASTIN TIME 42.7 Sec (25.0-35.0)
[2017-01-06 04:50] LABS: CALCIUM 9.3 mg/dl (8.4-10.2); CREATININE 1.22 mg/dl (0.44-1.00); MAGNESIUM 2.1 mg/dl (1.7-2.5); POTASSIUM 4.2 mmol/L (3.5-5.1)
[2017-01-06] MEDS: NITROGLYCERIN 50 MG/D5W (PMX) 250 ML IV SCH (05:35)
[2017-01-06] MEDS: LEVOFLOXACIN 500MG/D5W (PMX) 100 ML IVPB SCH (06:44)
[2017-01-06] MEDS: ACCU-CHEK XX SCH ×18 (07:00→23:30)
[2017-01-06] MEDS ORDERED: FUROSEMIDE 20 MG INJ IV ONE (07:30)
[2017-01-06] MEDS ORDERED: AMIODARONE 150MG/D5W BOLUS 100 ML ONE (07:50)
[2017-01-06] MEDS ORDERED: AMIODARONE 150MG/D5W BOLUS 100 ML IV ONE (08:00)
[2017-01-06] MEDS ORDERED: AMIODARONE 900 MG in DEXTROSE 5% 482 ML IV SCH (08:00)
[2017-01-06] MEDS: CLOPIDOGREL 75 MG TAB PO SCH (08:17)
[2017-01-06] MEDS: FAMOTIDINE 20 MG INJ IV SCH ×2 (08:17→21:43)
[2017-01-06] MEDS: PHENAZOPYRIDINE 200 MG TAB PO SCH ×3 (08:17→21:38)
[2017-01-06] MEDS: CEFEPIME 1GM/50 ML (PMX) 50 ML IVPB SCH (08:17)
[2017-01-06] MEDS: ASPIRIN 325 MG TAB PO SCH (08:17)
[2017-01-06] MEDS: METOPROLOL 25 MG TAB PO SCH ×2 (08:18→21:36)
[2017-01-06] MEDS: MUPIROCIN 2% 22 GM OINT TOP SCH ×2 (08:19→21:00)
[2017-01-06] MEDS ORDERED: SOD FERRIC GLUC COMPLX 125 MG in SOD CHLORIDE 0.9% 100 ML IVPB ONE (09:00)
[2017-01-06] MEDS: LEFLUNOMIDE 10 MG TAB PO SCH (09:00)
--- NOTE | 2017-01-06 09:20 | RADRPT ---
PROCEDURE: XR Chest. CLINICAL INDICATION: resp failure TECHNIQUE: AP view of the chest were obtained. COMPARISON: CHEST 01/05/2017 FINDINGS: The patient is status post median sternotomy with bilateral chest tubes, a right internal jugular Co rdis sheath in proper position. There is a mediastinal drain proper position. There has been interva l extubation. There is cardiomegaly and calcified atherosclerosis of the aortic arch. This pulmonary vascular congestion which has increased in comparison to the prior study. Trace pleural effusions. No evidence of pneumothorax. IMPRESSION: Interval extubation. Interval removal of the [place]-Pete catheter. Stable right internal jugular Cordis sheath and bilateral chest tubes. Stable mediastinal drain. Increasing pulmonary vascular congestion. RPTAT: QQ .Sudhakar Parks MD, Date Time Electronically viewed and signed by .Sudhakar Parks MD, on 01/06/2017 09:20 .G/
--- NOTE | 2017-01-06 09:38 | CONS ---
Date/Time of Note Date/Time of Note DATE: 01/06/17 TIME: 09:33 Assessment/Plan Assessment/Plan Chief Complaint/Hosp Course Acute diastolic heart failure: EF remains preserved post CABG. Likely from IVF. No symptoms but CXR with congestion. Paroxysmal atrial fibrillation: common post cardiac surgery. Will control with amiodarone but plan will be short term for ~1 month CAD s/p CABG: emergent SHAW-LAD and SVG-RCA for proximal RCA dissection during cardiac cath NSTEMI s/p attempted PCI of RCA 01/02 and again 01/04 complicated by RCA dissection requiring emergent CABG VF arrest: in setting of RCA dissection. Off lidocaine. Back on amio fro afib this time Cardiogenic shock: in setting of above. IABP removed. Wean off milrinone Acute respiratory failure: Now extubated 01/05 HTN HL Chronic suprapubic catheter Bladder surgery Dysphagia UTI -increase to metoprolol 50mg BID -continue amio drip, switch to PO tomorrow -agree with lasix, may need more tonight depending on urine output -ASA, plavix (ok by Dr Gauthier) -lipitor -can restart lisinopril if BP elevated Problems: Consultation Date/Type/Reason Admit Date/Time Jan 02, 2017 at 17:02 Type of Consultation: Cardiology Referring Provider: QING LI 24 HR Interval Summary Free Text/Dictation Extubated overnight. Off pressors. Had afib with RVR this am, now sinus on amio drip. Has some sternal pain, otherwise no complaints Exam/Review of Systems Vital Signs Vitals Vital Signs Date Time Temp Pulse Resp B/P Pulse Ox O2 Delivery O2 Flow Rate FiO2 01/06/17 09:00 94 01/06/17 09:00 34 142/69 97 Nasal Cannula 01/06/17 08:45 3.0 01/06/17 07:30 97.6 01/06/17 04:22 36 Intake and Output 01/05/17 01/05/17 01/06/17 15:00 23:00 07:00 Intake Total 1293.7 ml 1220.0 ml 1502.0 ml Output Total 670 ml 345 ml 360 ml Balance 623.7 ml 875.0 ml 1142.0 ml Exam Constitutional: alert, oriented, No distress Psych: no complaints Head: atraumatic, normocephalic Neck: jvd (7cm), supple Respiratory: crackles/rales, diminished breath sounds, No clear to auscultation Cardiovascular: regular rate and rhythm, No edema, No systolic murmur Gastrointestinal: non-tender, soft, No distended Neurological: nl mental status, nl speech Results Result Diagram: 01/06/17 0415 01/06/17 0415 Results 24 hrs Laboratory Tests Test 01/05/17 10:28 01/05/17 12:00 01/05/17 13:36 01/05/17 15:30 Bedside Glucose 154 120 116 Urine Color BONY Urine Clarity CLEAR Urine pH 5.0 Urine Specific [place] 1.019 Urine Ketones NEGATIVE Urine Nitrite POSITIVE A Urine Bilirubin NEGATIVE Urine Urobilinogen 1+ H Urine Leukocyte Esterase NEGATIVE Urine Microscopic RBC 7 H Urine Microscopic WBC 7 H Urine Bacteria FEW A Urine Mucus FEW A Urine Hemoglobin 1+ H Urine Glucose NEGATIVE Urine Total Protein NEGATIVE Test 01/05/17 17:15 01/05/17 17:40 01/05/17 19:00 01/05/17 19:08 Bedside Glucose 136 138 Blood Gas Specimen Source Blood arterial Blood arterial Arterial Blood Date Drawn 01/05/2017 5:15:00 PM 01/05/2017 7:13:58 PM Arterial Blood pH (Temp corrected) 7.381 7.449 Arterial Blood pCO2 (Temp correct) 29.2 L 30.0 L Arterial Blood pO2 (Temp corrected) 99.8 H 75.4 L Arterial Blood HCO3 16.9 L 20.3 L Arterial Blood Base Excess -7.3 L -3.1 L Arterial Blood Oxygen Saturation 96.9 94.2 L Jemal Test N/A N/A Arterial Blood Gas Puncture Site A-Line A-Line Arterial Blood Carboxyhemoglobin 0.3 0.1 Arterial Blood Methemoglobin 0.1 0 Blood Gas A-a O2 Differential 151.8 H 146.5 H Oxyhemoglobin Percent 96.5 94.1 Total Hemoglobin 7.8 L 8.1 L Blood Gas Temperature 37.0 37.0 Blood Gas Actual Respiration Rate 22 36 Blood Gas Modality VENT - CPAP NASAL CANNULA FiO2 40.0 36.0 Blood Gas Low PEEP Setting 5.0 Blood Gas Pressure Support 10 Blood Gas Notified Whom KEVIN HE RCP. Blood Gas Notified Time 01/05/2017 5:23:00 PM 01/05/2017 7:25:43 PM Test 01/05/17 19:50 01/05/17 20:44 01/05/17 22:51 01/06/17 04:15 Hematocrit 22.3 L 22.2 L Potassium Level 4.4 4.2 Magnesium Level 2.4 2.1 Bedside Glucose 126 128 White Blood Count 16.5 #H Red Blood Count 2.62 L Hemoglobin 7.6 L Mean Corpuscular Volume 84.7 Mean Corpuscular Hemoglobin 29.0 Mean Corpuscular Hemoglobin Concent 34.2 Red Cell Distribution Width 17.2 H Platelet Count 110 #L Mean Platelet Volume 10.0 Neutrophils % 81.5 H Lymphocytes % 7.5 L Monocytes % 9.0 Eosinophils % 0.1 Basophils % 0.4 Nucleated Red Blood Cells % 0.0 Neutrophils # 13.4 H Lymphocytes # 1.2 Monocytes # 1.5 H Eosinophils # 0.0 Basophils # 0.1 Nucleated Red Blood Cells # 0.0 Prothrombin Time 20.5 H Prothrombin Time Ratio 1.6 INR International Normalized Ratio 1.74 Activated Partial Thromboplast Time 42.7 H Sodium Level 137 Chloride Level 110 Carbon Dioxide Level 24 Anion Gap 7 L Blood Urea Nitrogen 10 Creatinine 1.22 H Glucose Level 118 Calcium Level 9.3 Phosphorus Level 3.3 Test 01/06/17 04:19 01/06/17 05:25 Bedside Glucose 120 Lab Scanned Report BLOOD TRANSFUSION Medications Medications Current Medications Morphine Sulfate (morphine) 2 mg Q2H PRN IV FOR NON CARDIAC PAIN (4-10) Last administered on 01/06/17 09:01; Admin Dose 2 MG; Start 01/02/17 at 17:00 Clopidogrel Bisulfate (plaVIX) 75 mg DAILY PO Last administered on 01/06/17 08 :17; Admin Dose 75 MG; Start 01/03/17 at 09:00 Atorvastatin Calcium (Lipitor) 40 mg HS PO Last administered on 01/05/17 21:09 ; Admin Dose 40 MG; Start 01/02/17 at 21:00 Amitriptyline HCl (Elavil) 75 mg QHS PO Last administered on 01/05/17 21:08; Admin Dose 75 MG; Start 01/03/17 at 21:00 Leflunomide (Arava) 20 mg DAILY PO Last administered on 01/03/17 10:04; Admin Dose 20 MG; Start 01/03/17 at 10:00; Status Future hold Meclizine HCl (Antivert) 25 mg Q8H PRN PO DIZZINESS; Start 01/03/17 at 08:30 Phenazopyridine HCl (Pyridium) 200 mg TID PO Last administered on 01/06/17 08: 17; Admin Dose 200 MG; Start 01/03/17 at 10:00 Ranitidine HCl (Zantac) 300 mg HS PO Last administered on 01/05/17 21:08; Admin Dose 300 MG; Start 01/03/17 at 21:00 Zolpidem Tartrate (Ambien) 5 mg HS PRN PO INSOMNIA Last administered on 21:08; Admin Dose 5 MG; Start 01/03/17 at 23:00 Mupirocin (Bactroban) 1 applic BID TOP Last administered on 01/06/17 08:19; Admin Dose 1 APPLIC; Start 01/04/17 at 21:00 Hydromorphone HCl (Dilaudid) 0.2 mg Q15M PRN IV PAIN LEVEL 1-5 Last administered on 01/05/17 09:19; Admin Dose 0.2 MG; Start 01/04/17 at 20:00 Hydromorphone HCl (Dilaudid) 0.4 mg Q15M PRN IV PAIN LEVEL 6-10; Start at 20:00 Oxycodone/ Acetaminophen (Percocet (5/ 325)) 1 tab Q3H PRN PO PAIN LEVEL 1-5; Start 01/04/17 at 20:00 Ondansetron HCl (Zofran Inj) 4 mg Q6H PRN IV NAUSEA AND/OR VOMITING; Start 01/04/17 at 20:00 Famotidine (Pepcid Iv) 20 mg BID@08,20 IV Last administered on 01/06/17 08:17 ; Admin Dose 20 MG; Start 01/04/17 at 20:00 Aspirin (Aspirin) 325 mg DAILY PO Last administered on 01/06/17 08:17; Admin Dose 325 MG; Start 01/05/17 at 09:00 Acetaminophen 650 mg 650 mg Q3H PRN PO ELEVATED TEMPERATURE; Start 01/04/17 at 20:00 Magnesium Sulfate/ Dextrose (Magnesium Sulfate 1 Gm/D5W) 100 ml @ 100 mls/hr PRN PRN IVPB PENDING LAB VALUE; Start 01/04/17 at 20:00 Diagnostic Test (Pha) (Accu-Chek) 1 ea Q1H XX Last administered on 01/05/17 06 :44; Admin Dose 1 EA; Start 01/04/17 at 20:30 Dextrose (D50w Syringe) 25 ml Q15M PRN IV Till BS 80 mg/dL or above x2; Start 01/04/17 at 20:30 Dextrose 50 ml 50 ml Q15M PRN IV Till BS 80 mg/dL or above x2; Start 01/04/17 at 20:30 Levofloxacin/ Dextrose 100 ml @ 100 mls/hr Q24H IVPB Last administered on 01/06 06:44; Admin Dose 100 MLS/HR; Start 01/05/17 at 06:30 Cefepime HCl 50 ml @ 100 mls/hr Q12 IVPB Last administered on 01/06/17 08:17 ; Admin Dose 100 MLS/HR; Start 01/05/17 at 13:00 Vancomycin HCl/ Sodium Chloride (Vancocin/NS) 150 ml @ 100 mls/hr Q24H IVPB ; Start 01/06/17 at 10:00 Metoprolol Tartrate 25 mg 25 mg BID PO Last administered on 01/06/17 08:18; Admin Dose 25 MG; Start 01/05/17 at 23:00 Ferric Sodium Gluconate Complex 125 mg/Sodium Chloride 110 ml @ 100 mls/hr ONCE ONCE IVPB Last administered on 01/06/17 09:29; Admin Dose 100 MLS/HR; Start 01/06/17 at 09:00; Stop 01/06/17 at 10:05 Amiodarone HCl/ Dextrose (Cordarone Iv/ D5W) 500 ml @ 0 mls/hr Q0M IV Last administered on 01/06/17 09:30; Admin Dose 33.3 MLS/HR; Start 01/06/17 at 08:00 ; Stop 01/07/17 at 07:59 QING LI Jan 06, 2017 09:38
[2017-01-06] MEDS ORDERED: METOPROLOL 25 MG TAB PO ONE (10:00)
--- NOTE | 2017-01-06 10:05 | QN ---
Documentation Comment Called to Measurement And Sensing Technician for CODE BLUE on the evening of 01/04 Attended the CODE BLUE to patient had lost pulses. CPR was in progress. Patient did regain both pulses and consciousness while on the table after administration of 100 mg of lidocaine. gunstock spray unit adjuster was present and ordered the lidocaine. Patient also is having respiratory compromise and intubation was required. ET intubation note: She was preoxygenated with bag mask ventilation, RSI was used with a milligrams of etomidate and 100 mg of rocuronium. Size 7.5 ET tube was easily introduced through visualized cords using a MAC 4 blade. Patient taught the procedure with no complications. Oxygen saturation is 100% following the procedure. CRUZ GRACIA DO Jan 06, 2017 10:05
[2017-01-06] MEDS: VANCOMYCIN 750 MG in SOD CHLORIDE 0.9% 150 ML IVPB SCH (10:43)
--- NOTE | 2017-01-06 10:43 | CONS ---
Date/Time of Note Date/Time of Note DATE: 01/06/17 TIME: 10:38 Consult Date/Type/Reason Admit Date/Time Jan 02, 2017 at 17:02 Initial Consult Date 01/05/17 Type of Consultation: Pulmonary Ordering Provider: QING LI Subjective Patient awake alert oriented this morning denies shortness of breath no chest pain. Complaining of generalized discomfort however. Atrial fibrillation with RVR overnight. Objective Vital Signs Date Time Temp Pulse Resp B/P Pulse Ox O2 Delivery O2 Flow Rate FiO2 01/06/17 09:00 94 01/06/17 09:00 34 142/69 97 Nasal Cannula 01/06/17 08:45 3.0 01/06/17 07:30 97.6 01/06/17 04:22 36 Intake and Output 01/05/17 01/05/17 01/06/17 15:00 23:00 07:00 Intake Total 1293.7 ml 1220.0 ml 1502.0 ml Output Total 670 ml 345 ml 360 ml Balance 623.7 ml 875.0 ml 1142.0 ml Exam GENERAL: Elderly lady appears comfortable at rest no acute distress VITAL SIGNS: per chart NECK: Supple. No JVD or lymphadenopathy. CARDIAC EXAM: S1, S2. No added sounds or murmurs. CHEST: clear bilaterally, No added sounds, rales or wheezes ABDOMEN: Soft, nontender. No guarding or rebound. EXTREMITIES: No cyanosis, clubbing or edema. NEUROLOGIC: Generalized weakness. No focal deficits. Results/Medications Result Diagram: 01/06/17 0415 01/06/17 0415 Results 24 hrs Chest x-ray pulmonary edema. Laboratory Tests Test 01/05/17 12:00 01/05/17 13:36 01/05/17 15:30 01/05/17 17:15 Urine Color BONY Urine Clarity CLEAR Urine pH 5.0 Urine Specific [place] 1.019 Urine Ketones NEGATIVE Urine Nitrite POSITIVE A Urine Bilirubin NEGATIVE Urine Urobilinogen 1+ H Urine Leukocyte Esterase NEGATIVE Urine Microscopic RBC 7 H Urine Microscopic WBC 7 H Urine Bacteria FEW A Urine Mucus FEW A Urine Hemoglobin 1+ H Urine Glucose NEGATIVE Urine Total Protein NEGATIVE Bedside Glucose 120 116 136 Test 01/05/17 17:40 01/05/17 19:00 01/05/17 19:08 01/05/17 19:50 Blood Gas Specimen Source Blood arterial Blood arterial Arterial Blood Date Drawn 01/05/2017 5:15:00 PM 01/05/2017 7:13:58 PM Arterial Blood pH (Temp corrected) 7.381 7.449 Arterial Blood pCO2 (Temp correct) 29.2 L 30.0 L Arterial Blood pO2 (Temp corrected) 99.8 H 75.4 L Arterial Blood HCO3 16.9 L 20.3 L Arterial Blood Base Excess -7.3 L -3.1 L Arterial Blood Oxygen Saturation 96.9 94.2 L Jemal Test N/A N/A Arterial Blood Gas Puncture Site A-Line A-Line Arterial Blood Carboxyhemoglobin 0.3 0.1 Arterial Blood Methemoglobin 0.1 0 Blood Gas A-a O2 Differential 151.8 H 146.5 H Oxyhemoglobin Percent 96.5 94.1 Total Hemoglobin 7.8 L 8.1 L Blood Gas Temperature 37.0 37.0 Blood Gas Actual Respiration Rate 22 36 Blood Gas Modality VENT - CPAP NASAL CANNULA FiO2 40.0 36.0 Blood Gas Low PEEP Setting 5.0 Blood Gas Pressure Support 10 Blood Gas Notified Whom KEVIN HE RCP. Blood Gas Notified Time 01/05/2017 5:23:00 PM 01/05/2017 7:25:43 PM Bedside Glucose 138 Hematocrit 22.3 L Potassium Level 4.4 Magnesium Level 2.4 Test 01/05/17 20:44 01/05/17 22:51 01/06/17 04:15 01/06/17 04:19 Bedside Glucose 126 128 120 White Blood Count 16.5 #H Red Blood Count 2.62 L Hemoglobin 7.6 L Hematocrit 22.2 L Mean Corpuscular Volume 84.7 Mean Corpuscular Hemoglobin 29.0 Mean Corpuscular Hemoglobin Concent 34.2 Red Cell Distribution Width 17.2 H Platelet Count 110 #L Mean Platelet Volume 10.0 Neutrophils % 81.5 H Lymphocytes % 7.5 L Monocytes % 9.0 Eosinophils % 0.1 Basophils % 0.4 Nucleated Red Blood Cells % 0.0 Neutrophils # 13.4 H Lymphocytes # 1.2 Monocytes # 1.5 H Eosinophils # 0.0 Basophils # 0.1 Nucleated Red Blood Cells # 0.0 Prothrombin Time 20.5 H Prothrombin Time Ratio 1.6 INR International Normalized Ratio 1.74 Activated Partial Thromboplast Time 42.7 H Sodium Level 137 Potassium Level 4.2 Chloride Level 110 Carbon Dioxide Level 24 Anion Gap 7 L Blood Urea Nitrogen 10 Creatinine 1.22 H Glucose Level 118 Calcium Level 9.3 Phosphorus Level 3.3 Magnesium Level 2.1 Test 01/06/17 05:25 01/06/17 09:59 Lab Scanned Report BLOOD TRANSFUSION Bedside Glucose 93 Medications Current Medications Morphine Sulfate (morphine) 2 mg Q2H PRN IV FOR NON CARDIAC PAIN (4-10) Last administered on 01/06/17 09:01; Admin Dose 2 MG; Start 01/02/17 at 17:00 Clopidogrel Bisulfate (plaVIX) 75 mg DAILY PO Last administered on 01/06/17 08 :17; Admin Dose 75 MG; Start 01/03/17 at 09:00 Atorvastatin Calcium (Lipitor) 40 mg HS PO Last administered on 01/05/17 21:09 ; Admin Dose 40 MG; Start 01/02/17 at 21:00 Amitriptyline HCl (Elavil) 75 mg QHS PO Last administered on 01/05/17 21:08; Admin Dose 75 MG; Start 01/03/17 at 21:00 Leflunomide (Arava) 20 mg DAILY PO Last administered on 01/03/17 10:04; Admin Dose 20 MG; Start 01/03/17 at 10:00; Status Future hold Meclizine HCl (Antivert) 25 mg Q8H PRN PO DIZZINESS; Start 01/03/17 at 08:30 Phenazopyridine HCl (Pyridium) 200 mg TID PO Last administered on 01/06/17 08: 17; Admin Dose 200 MG; Start 01/03/17 at 10:00 Ranitidine HCl (Zantac) 300 mg HS PO Last administered on 01/05/17 21:08; Admin Dose 300 MG; Start 01/03/17 at 21:00 Zolpidem Tartrate (Ambien) 5 mg HS PRN PO INSOMNIA Last administered on 21:08; Admin Dose 5 MG; Start 01/03/17 at 23:00 Mupirocin (Bactroban) 1 applic BID TOP Last administered on 01/06/17 08:19; Admin Dose 1 APPLIC; Start 01/04/17 at 21:00 Hydromorphone HCl (Dilaudid) 0.2 mg Q15M PRN IV PAIN LEVEL 1-5 Last administered on 01/05/17 09:19; Admin Dose 0.2 MG; Start 01/04/17 at 20:00 Hydromorphone HCl (Dilaudid) 0.4 mg Q15M PRN IV PAIN LEVEL 6-10; Start at 20:00 Oxycodone/ Acetaminophen (Percocet (5/ 325)) 1 tab Q3H PRN PO PAIN LEVEL 1-5; Start 01/04/17 at 20:00 Ondansetron HCl (Zofran Inj) 4 mg Q6H PRN IV NAUSEA AND/OR VOMITING; Start 01/04/17 at 20:00 Famotidine (Pepcid Iv) 20 mg BID@08,20 IV Last administered on 01/06/17 08:17 ; Admin Dose 20 MG; Start 01/04/17 at 20:00 Aspirin (Aspirin) 325 mg DAILY PO Last administered on 01/06/17 08:17; Admin Dose 325 MG; Start 01/05/17 at 09:00 Acetaminophen 650 mg 650 mg Q3H PRN PO ELEVATED TEMPERATURE; Start 01/04/17 at 20:00 Magnesium Sulfate/ Dextrose (Magnesium Sulfate 1 Gm/D5W) 100 ml @ 100 mls/hr PRN PRN IVPB PENDING LAB VALUE; Start 01/04/17 at 20:00 Diagnostic Test (Pha) (Accu-Chek) 1 ea Q1H XX Last administered on 01/05/17 06 :44; Admin Dose 1 EA; Start 01/04/17 at 20:30 Dextrose (D50w Syringe) 25 ml Q15M PRN IV Till BS 80 mg/dL or above x2; Start 01/04/17 at 20:30 Dextrose 50 ml 50 ml Q15M PRN IV Till BS 80 mg/dL or above x2; Start 01/04/17 at 20:30 Levofloxacin/ Dextrose 100 ml @ 100 mls/hr Q24H IVPB Last administered on 01/06 06:44; Admin Dose 100 MLS/HR; Start 01/05/17 at 06:30 Cefepime HCl 50 ml @ 100 mls/hr Q12 IVPB Last administered on 01/06/17 08:17 ; Admin Dose 100 MLS/HR; Start 01/05/17 at 13:00 Vancomycin HCl 750 mg/Sodium Chloride 150 ml @ 100 mls/hr Q24H IVPB ; Start at 10:00 Amiodarone HCl/ Dextrose (Cordarone Iv/ D5W) 500 ml @ 0 mls/hr Q0M IV Last administered on 01/06/17t 09:30; Admin Dose 33.3 MLS/HR; Start 01/06/17 at 08:00 ; Stop 01/07/17 at 07:59 Metoprolol Tartrate (Lopressor) 50 mg BID PO ; Start 01/06/17 at 21:00 Assessment/Plan Chief Complaint/Hosp Course Assessment 1. Patient admitted with non-STEMI , underwent coronary angiography then required emergent CABG. 2. Status post CPR lasting 10 minutes with revival of vital signs. Patient currently is hemodynamically stable, off pressor support. Amiodarone drip 3. Leukocytosis. Etiology is unclear possibly early aspiration. Patient currently on appropriate antibiotic regimen. 4. Anemia. 5. History of chronic urinary retention, with placement of Jang catheter on a chronic basis. 6. Respiratory failure now extubated Plan 1. Continue supplemental O2 as needed 2. Continue rate control 3. Aspiration precautions 4. Thoracic surgery recommendations we chest tube 5. Continue broad-spectrum antibiotic coverage pending culture results Critical care time 40 minutes Problems: WILLIAM RUDD MD, [facility] Jan 06, 2017 10:43
--- NOTE | 2017-01-06 12:38 | PN ---
Date/Time of Note Date/Time of Note DATE: 01/06/17 TIME: 12:36 Assessment/Plan Lines/Catheters IV Catheter Type (from Nrsg): Cordis Cont'd campbell catheter reason: urinary retention Assessment/Plan Assessment/Plan s/p cabg dm atrial fib acute blood loss anemia advance diet mobilize iv iron Subjective 24 Hr Interval Summary Constitutional: poor po, requiring O2, shortness of breath Feeding: advancing diet Pain Control: mild Exam/Review of Systems Vital Signs Vitals Vital Signs Date Time Temp Pulse Resp B/P Pulse Ox O2 Delivery O2 Flow Rate FiO2 01/06/17 09:00 94 01/06/17 09:00 34 142/69 97 Nasal Cannula 01/06/17 08:45 3.0 01/06/17 07:30 97.6 01/06/17 04:22 36 Intake and Output 01/05/17 01/05/17 01/06/17 14:59 22:59 06:59 Intake Total 1371.3 ml 1128.5 ml 1593.5 ml Output Total 720 ml 360 ml 410 ml Balance 651.3 ml 768.5 ml 1183.5 ml Exam Constitutional: alert, oriented Head: normocephalic Eyes: nl conjunctiva ENMT: nl lips & teeth Neck: supple Respiratory: diminished breath sounds, other (cxr wet) Cardiovascular: other (earlier atrial fib iv amiodarone) Musculoskeletal: other (pale no edema) Results Result Diagram: 01/06/17 0415 01/06/17 0415 TREVOR HOUSTON MD Jan 06, 2017 12:38
--- NOTE | 2017-01-06 13:54 | CONS ---
Date/Time of Note Date/Time of Note DATE: 01/06/17 TIME: 13:53 Assessment/Plan Assessment/Plan Additional Assessment/Plan IMPRESSION: 1. Normochromic normocytic anemia. 2. Dysphagia. 3. Coronary artery disease, non-ST elevation myocardial infarction. 4. Hypertension. 5. Dyslipidemia. 6. Urinary tract infection. 7. Is post emergency coronary artery bypass graft Plan Continue postop care Discussed with the staff for aspiration precaution. Consultation Date/Type/Reason Admit Date/Time Jan 02, 2017 at 17:02 Initial Consult Date 01/04/17 Type of Consultation: Pulmonary Referring Provider: QING LI 24 HR Interval Summary Free Text/Dictation Patient is extubated, tolerating clear liquid diet Constitutional: improved Exam/Review of Systems Vital Signs Vitals Vital Signs Date Time Temp Pulse Resp B/P Pulse Ox O2 Delivery O2 Flow Rate FiO2 01/06/17 12:30 67 31 116/56 100 Nasal Cannula 3.0 01/06/17 12:15 98.9 01/06/17 04:22 36 Intake and Output 01/05/17 01/05/17 01/06/17 14:59 22:59 06:59 Intake Total 1371.3 ml 1128.5 ml 1593.5 ml Output Total 720 ml 360 ml 410 ml Balance 651.3 ml 768.5 ml 1183.5 ml Exam Constitutional: alert, oriented, well developed Psych: nl mood/affect, no complaints Head: atraumatic, normocephalic Eyes: EOMI, PERRL, nl conjunctiva, nl lids, nl sclera ENMT: nl external ears & nose, nl lips & teeth, nl nasal mucosa & septum Neck: non-tender, supple Respiratory: clear to auscultation, normal air movement Cardiovascular: nl pulses, regular rate and rhythm Gastrointestinal: nl liver, spleen, non-tender, soft Musculoskeletal: nl extremities to inspection, nl gait and stance Extremities: normal pulses Neurological: [employer] II-XII intact, nl mental status, nl speech, nl strength Skin: nl turgor, No rash or lesions Lymph: nl lymph nodes Results Result Diagram: 01/06/17 0415 01/06/17 0415 Results 24 hrs Laboratory Tests Test 01/05/17 15:30 01/05/17 17:15 01/05/17 17:40 01/05/17 19:00 Bedside Glucose 116 136 Blood Gas Specimen Source Blood arterial Blood arterial Arterial Blood Date Drawn 01/05/2017 5:15:00 PM 01/05/2017 7:13:58 PM Arterial Blood pH (Temp corrected) 7.381 7.449 Arterial Blood pCO2 (Temp correct) 29.2 L 30.0 L Arterial Blood pO2 (Temp corrected) 99.8 H 75.4 L Arterial Blood HCO3 16.9 L 20.3 L Arterial Blood Base Excess -7.3 L -3.1 L Arterial Blood Oxygen Saturation 96.9 94.2 L Jemal Test N/A N/A Arterial Blood Gas Puncture Site A-Line A-Line Arterial Blood Carboxyhemoglobin 0.3 0.1 Arterial Blood Methemoglobin 0.1 0 Blood Gas A-a O2 Differential 151.8 H 146.5 H Oxyhemoglobin Percent 96.5 94.1 Total Hemoglobin 7.8 L 8.1 L Blood Gas Temperature 37.0 37.0 Blood Gas Actual Respiration Rate 22 36 Blood Gas Modality VENT - CPAP NASAL CANNULA FiO2 40.0 36.0 Blood Gas Low PEEP Setting 5.0 Blood Gas Pressure Support 10 Blood Gas Notified Whom KEVIN HE RCP. Blood Gas Notified Time 01/05/2017 5:23:00 PM 01/05/2017 7:25:43 PM Test 01/05/17 19:08 01/05/17 19:50 01/05/17 20:44 01/05/17 22:51 Bedside Glucose 138 126 128 Hematocrit 22.3 L Potassium Level 4.4 Magnesium Level 2.4 Test 01/06/17 04:15 01/06/17 04:19 01/06/17 05:25 01/06/17 09:59 White Blood Count 16.5 #H Red Blood Count 2.62 L Hemoglobin 7.6 L Hematocrit 22.2 L Mean Corpuscular Volume 84.7 Mean Corpuscular Hemoglobin 29.0 Mean Corpuscular Hemoglobin Concent 34.2 Red Cell Distribution Width 17.2 H Platelet Count 110 #L Mean Platelet Volume 10.0 Neutrophils % 81.5 H Lymphocytes % 7.5 L Monocytes % 9.0 Eosinophils % 0.1 Basophils % 0.4 Nucleated Red Blood Cells % 0.0 Neutrophils # 13.4 H Lymphocytes # 1.2 Monocytes # 1.5 H Eosinophils # 0.0 Basophils # 0.1 Nucleated Red Blood Cells # 0.0 Prothrombin Time 20.5 H Prothrombin Time Ratio 1.6 INR International Normalized Ratio 1.74 Activated Partial Thromboplast Time 42.7 H Sodium Level 137 Potassium Level 4.2 Chloride Level 110 Carbon Dioxide Level 24 Anion Gap 7 L Blood Urea Nitrogen 10 Creatinine 1.22 H Glucose Level 118 Calcium Level 9.3 Phosphorus Level 3.3 Magnesium Level 2.1 Bedside Glucose 120 93 Lab Scanned Report BLOOD TRANSFUSION Test 01/06/17 12:04 Bedside Glucose 112 Medications Medications Current Medications Morphine Sulfate (morphine) 2 mg Q2H PRN IV FOR NON CARDIAC PAIN (4-10) Last administered on 01/06/17 12:02; Admin Dose 2 MG; Start 01/02/17 at 17:00 Clopidogrel Bisulfate (plaVIX) 75 mg DAILY PO Last administered on 01/06/17 08 :17; Admin Dose 75 MG; Start 01/03/17 at 09:00 Atorvastatin Calcium (Lipitor) 40 mg HS PO Last administered on 01/05/17 21:09 ; Admin Dose 40 MG; Start 01/02/17 at 21:00 Amitriptyline HCl (Elavil) 75 mg QHS PO Last administered on 01/05/17 21:08; Admin Dose 75 MG; Start 01/03/17 at 21:00 Leflunomide (Arava) 20 mg DAILY PO Last administered on 01/06/17 09:00; Admin Dose 20 MG; Start 01/03/17 at 10:00; Status Future hold Meclizine HCl (Antivert) 25 mg Q8H PRN PO DIZZINESS; Start 01/03/17 at 08:30 Phenazopyridine HCl (Pyridium) 200 mg TID PO Last administered on 01/06/17 12: 40; Admin Dose 200 MG; Start 01/03/17 at 10:00 Ranitidine HCl (Zantac) 300 mg HS PO Last administered on 01/05/17 21:08; Admin Dose 300 MG; Start 01/03/17 at 21:00 Zolpidem Tartrate (Ambien) 5 mg HS PRN PO INSOMNIA Last administered on 21:08; Admin Dose 5 MG; Start 01/03/17 at 23:00 Mupirocin (Bactroban) 1 applic BID TOP Last administered on 01/06/17 08:19; Admin Dose 1 APPLIC; Start 01/04/17 at 21:00 Hydromorphone HCl (Dilaudid) 0.2 mg Q15M PRN IV PAIN LEVEL 1-5 Last administered on 01/05/17 09:19; Admin Dose 0.2 MG; Start 01/04/17 at 20:00 Hydromorphone HCl (Dilaudid) 0.4 mg Q15M PRN IV PAIN LEVEL 6-10; Start at 20:00 Oxycodone/ Acetaminophen (Percocet (5/ 325)) 1 tab Q3H PRN PO PAIN LEVEL 1-5; Start 01/04/17 at 20:00 Ondansetron HCl (Zofran Inj) 4 mg Q6H PRN IV NAUSEA AND/OR VOMITING; Start 01/04/17 at 20:00 Famotidine (Pepcid Iv) 20 mg BID@08,20 IV Last administered on 01/06/17 08:17 ; Admin Dose 20 MG; Start 01/04/17 at 20:00 Aspirin (Aspirin) 325 mg DAILY PO Last administered on 01/06/17 08:17; Admin Dose 325 MG; Start 01/05/17 at 09:00 Acetaminophen 650 mg 650 mg Q3H PRN PO ELEVATED TEMPERATURE; Start 01/04/17 at 20:00 Magnesium Sulfate/ Dextrose (Magnesium Sulfate 1 Gm/D5W) 100 ml @ 100 mls/hr PRN PRN IVPB PENDING LAB VALUE; Start 01/04/17 at 20:00 Diagnostic Test (Pha) (Accu-Chek) 1 ea Q1H XX Last administered on 01/06/17 12 :38; Admin Dose 1 EA; Start 01/04/17 at 20:30 Dextrose (D50w Syringe) 25 ml Q15M PRN IV Till BS 80 mg/dL or above x2; Start 01/04/17 at 20:30 Dextrose 50 ml 50 ml Q15M PRN IV Till BS 80 mg/dL or above x2; Start 01/04/17 at 20:30 Levofloxacin/ Dextrose 100 ml @ 100 mls/hr Q24H IVPB Last administered on 01/06 06:44; Admin Dose 100 MLS/HR; Start 01/05/17 at 06:30 Cefepime HCl 50 ml @ 100 mls/hr Q12 IVPB Last administered on 01/06/17 08:17 ; Admin Dose 100 MLS/HR; Start 01/05/17 at 13:00 Vancomycin HCl 750 mg/Sodium Chloride 150 ml @ 100 mls/hr Q24H IVPB Last administered on 01/06/17 10:43; Admin Dose 100 MLS/HR; Start 01/06/17 at 10:00 Amiodarone HCl/ Dextrose (Cordarone Iv/ D5W) 500 ml @ 0 mls/hr Q0M IV Last administered on 01/06/17 09:30; Admin Dose 33.3 MLS/HR; Start 01/06/17 at 08:00 ; Stop 01/07/17 at 07:59 Metoprolol Tartrate (Lopressor) 50 mg BID PO ; Start 01/06/17 at 21:00 EVY SAUCEDA MD Jan 06, 2017 13:54
--- NOTE | 2017-01-06 14:30 | PN ---
DATE: 01/06/2017 SUBJECTIVE: The patient is stable on a nitro drip. The patient was extubated yesterday. No other events noted, no hemoptysis, hemetemesis, hematochezia. OBJECTIVE: VITAL SIGNS: Blood pressure is 144/68, respiration 24, pulse 92, temperature 98.6. HEENT: Head is normocephalic. NECK: Supple. CHEST: The patient has noted chest tubes. HEART: Regular rate. LUNGS: Show diminished breath sounds at base. ABDOMEN: Soft, nontender to palpation. No rebound or guarding. EXTREMITIES: Negative for clubbing, cyanosis, or edema. DERMATOLOGIC: No rashes. MUSCULOSKELETAL: No joint effusions. NEUROLOGIC: Limited. MEDICATIONS: Have been reviewed. LABORATORY DATA: Shows a white count of 16.5, hemoglobin 7.6, hematocrit 22.2, platelet count is 11 0. Sodium 137, potassium 4.2, chloride 110, BUN 10, creatinine 1.22. Urinalysis was reviewed. Cul tures have been reviewed. ASSESSMENT AND PLAN: 1. Coronary artery disease, status post coronary artery bypass graft performed emergently 2-vessel. Continue current treatment plan. Follow up with CT surgery. 2. Non-ST elevation myocardial infarction, status post cardiac catheterization with complications i ncluding RCA dissection requiring emergent coronary artery bypass graft. Continue current medical m anagement. Follow up with cardiology. 3. Status post cardiac arrest with spontaneous return of circulation. Continue to monitor. 4. Hypertension. The patient is currently on nitro drip. We will continue to defer to cardiology and CT surgery. 5. Respiratory failure, status post extubation. Currently the patient is currently stable. 6. Anemia. Monitor hemoglobin and hematocrit levels. 7. Leukocytosis, likely reactive. The patient is on antibiotic therapy, continue to monitor. Foll ow up with infectious disease. 8 Dysphagia. Continue speech therapy. 9. Diabetes. Continue current insulin regimen. 10. History of rheumatoid arthritis. Resume medications Novara. 11. Depression. Continue Elavil. 12. Gastrointestinal and deep venous thrombosis prophylaxis. Dictated By: PIEDAD LAUREN/RONALD Conf#: [id number] DID#: [id number]
--- NOTE | 2017-01-06 17:47 | PN ---
DATE: 01/06/2017 SUBJECTIVE: No acute changes. The patient was extubated. She is sleeping, looks comfortable on in sulin drip, status post atrial fibrillation this morning. VITAL SIGNS: Temperature 97.6, pulse 94, respirations 20, blood pressure 142/69, saturation 97% on nasal cannula. WBC 16.5, H and H 7.6 and 22.2, platelets 110, neutrophils 81.5, BUN 10, creatinine 1.22. INDWELLINGS: Chest tube, right IJ suprapubic catheter. DIAGNOSTICS: Chest x-ray revealed today increasing pulmonary vascular congestion. ANTIMICROBIALS: The patient is on Vancomycin and Cefepime. PHYSICAL EXAMINATION: GENERAL: This is a fragile, well-developed, elderly woman who is in no distress. HEENT: Head atraumatic, normocephalic. Sclerae anicteric. Buccal mucosa dry. NECK: Supple. CHEST: Rise symmetrical. Breath sounds with crackles. HEART: S1, S2. ABDOMEN: Soft. Bowel tones hypoactive. EXTREMITIES: Without cyanosis. ASSESSMENT: 1. Systemic inflammatory response syndrome. 2. Status post acute respiratory failure. 3. Possible aspiration event. 4. Diabetes. 5. Status post cardiac arrest and coronary artery bypass graft. 6. Methicillin-resistant Staphylococcus aureus nares colonization. 7. Chronic suprapubic catheter. PLAN: The patient remains stable post-extubation. White blood cell count tracing down. She is on appropriate antimicrobials. Continue present care. Follow cardiology and pulmonary, cardiothoracic surgery recommendations. Dictated By: [employer] for LEIDY WANG/RONALD Conf#: [id number] DID#: [id number]
[2017-01-06] MEDS: AMITRIPTYLINE 25 MG TAB PO SCH ×2 (21:00→21:44)
[2017-01-06] MEDS ORDERED: METOPROLOL 50 MG TAB PO SCH (21:00)
[2017-01-06] MEDS: ATORVASTATIN 40 MG TAB PO SCH ×2 (21:35→21:38)
[2017-01-06] MEDS: RANITIDINE 150 MG TAB PO SCH (21:43)
[2017-01-07] VITALS (22 sets, daily range): BP systolic 88–168; BP diastolic 54–98; PULSE 64–172; RESP 12–34
[2017-01-07] MEDS: ACCU-CHEK XX SCH ×12 (00:30→21:00)
[2017-01-07 05:14] LABS: BASOPHIL # 0.1 10^3/ul (0.0-0.1); BASOPHILS % 0.6 % (0.0-2.0); EOSINOPHILS % 0.3 % (0.0-7.0); HEMATOCRIT 24.7 % (37.0-47.0); HEMOGLOBIN 8.3 g/dl (12.0-16.0); LYMPHOCYTES # 1.8 10^3/ul (0.8-2.9); LYMPHOCYTES % 12.7 % (15.0-51.0); MEAN CORPUSCULAR HEMOGLOBIN 29.3 pg (29.0-33.0); MEAN CORPUSCULAR HGB CONC 33.6 g/dl (32.0-37.0); MEAN CORPUSCULAR VOLUME 87.3 fl (82.0-101.0); MEAN PLATELET VOLUME 10.1 fl (7.4-10.4); MONOCYTE # 1.4 10^3/ul (0.3-0.9); MONOCYTES % 10.3 % (0.0-11.0); NEUTROPHIL # 10.4 10^3/ul (1.6-7.5); NEUTROPHILS % 74.7 % (39.0-77.0); NUCLEATED RED BLOOD CELLS% 0.1 /100WBC (0.0-0.0); PLATELET COUNT 111 10^3/UL (140-415); RED BLOOD COUNT 2.83 10^6/ul (4.20-5.40); RED CELL DISTRIBUTION WIDTH 17.6 % (11.5-14.5); WHITE BLOOD COUNT 13.9 10^3/ul (4.8-10.8)
[2017-01-07 05:25] LABS: CALCIUM 8.8 mg/dl (8.4-10.2); CREATININE 1.14 mg/dl (0.44-1.00); MAGNESIUM 1.8 mg/dl (1.7-2.5); PHOSPHORUS 2.4 mg/dl (2.5-4.9); POTASSIUM 3.9 mmol/L (3.5-5.1)
[2017-01-07] MEDS: morphine 2 MG INJ IV PRN ×3 (06:16→21:40)
[2017-01-07] MEDS: FAMOTIDINE 20 MG INJ IV SCH ×2 (08:13→21:20)
[2017-01-07] MEDS: CEFEPIME 1GM/50 ML (PMX) 50 ML IVPB SCH (08:13)
[2017-01-07] MEDS: METOPROLOL 25 MG TAB PO SCH ×2 (08:33→21:19)
[2017-01-07] MEDS: CLOPIDOGREL 75 MG TAB PO SCH (08:34)
[2017-01-07] MEDS: PHENAZOPYRIDINE 200 MG TAB PO SCH ×3 (08:34→21:19)
[2017-01-07] MEDS: LEFLUNOMIDE 10 MG TAB PO SCH (08:34)
[2017-01-07] MEDS: ASPIRIN 325 MG TAB PO SCH (08:34)
[2017-01-07] MEDS: MUPIROCIN 2% 22 GM OINT TOP SCH ×2 (08:34→21:41)
[2017-01-07 08:52] LABS: AADO2 Arterial 85.9 mmHg (7.0-24.0); Allen Test ACCEPTAB; Arterial Base Excess -0.6 mmol/L (-3.0-3); Arterial COHb 0.3 % (0.0-3.0); Arterial Fraction of Oxyhgb 95.7 % (93.0-99.0); Arterial HCO3 22.8 mmol/L (22.0-26.0); Arterial MetHb 0.2 % (0.0-1.5); Arterial Total Hemglobin 9.3 g/dl (12.0-18.0); MODE NASAL CANNULA
[2017-01-07] MEDS ORDERED: METOPROLOL 25 MG TAB PO SCH (09:00)
--- NOTE | 2017-01-07 09:01 | PN ---
Date/Time of Note Date/Time of Note DATE: 01/07/17 TIME: 08:59 Assessment/Plan Lines/Catheters IV Catheter Type (from [facility]): [place] Pete Jang in Place (from [facility]): Yes Assessment/Plan Chief Complaint/Hosp Course doing well NSR remove chest tubes on levaquin for UTI, GNR transfer to tele PT Problems: Exam/Review of Systems Vital Signs Vitals Vital Signs Date Time Temp Pulse Resp B/P Pulse Ox O2 Delivery O2 Flow Rate FiO2 01/07/17 05:34 3.0 01/07/17 04:30 68 19 137/58 96 Nasal Cannula 01/07/17 04:00 98.4 01/06/17 04:22 36 Intake and Output 01/06/17 01/06/17 01/07/17 15:00 23:00 07:00 Intake Total 1324.3 ml 140.0 ml 123 ml Output Total 1580 ml 540 ml 120 ml Balance -255.7 ml -400.0 ml 3 ml Results Result Diagram: 01/07/17 0430 01/07/17 0430 JOANN HEWITT MD Jan 07, 2017 09:01
--- NOTE | 2017-01-07 09:14 | CONS ---
Date/Time of Note Date/Time of Note DATE: 01/07/17 TIME: 09:11 Assessment/Plan Assessment/Plan Chief Complaint/Hosp Course Acute diastolic heart failure: EF remains preserved post CABG. Likely from IVF. No symptoms but CXR with congestion. Better after lasix Paroxysmal atrial fibrillation: common post cardiac surgery. Will control with amiodarone but plan will be short term for ~1 month CAD s/p CABG: emergent SHAW-LAD and SVG-RCA for proximal RCA dissection during cardiac cath NSTEMI s/p attempted PCI of RCA 01/02 and again 01/04 complicated by RCA dissection requiring emergent CABG VF arrest: in setting of RCA dissection. Cardiogenic shock: in setting of above. IABP removed. resolved Acute respiratory failure: Now extubated 01/05 HTN HL Chronic suprapubic catheter Bladder surgery Dysphagia UTI -metoprolol 25mg BID -switch to PO amiodarone 200mg BID (final goal daily dosing) -spot dose lasix as needed -ASA, plavix (ok by Dr Gauthier) -lipitor -restart lisinopril 5mg daily -ok for tele Problems: Consultation Date/Type/Reason Admit Date/Time Jan 02, 2017 at 17:02 Type of Consultation: Cardiology Referring Provider: QING LI 24 HR Interval Summary Free Text/Dictation No o/n events. No further afvib. Chest tubes removed. No complaints except for excisional pain Exam/Review of Systems Vital Signs Vitals Vital Signs Date Time Temp Pulse Resp B/P Pulse Ox O2 Delivery O2 Flow Rate FiO2 01/07/17 05:34 3.0 01/07/17 04:30 68 19 137/58 96 Nasal Cannula 01/07/17 04:00 98.4 01/06/17 04:22 36 Intake and Output 01/06/17 01/06/17 01/07/17 15:00 23:00 07:00 Intake Total 1324.3 ml 140.0 ml 123 ml Output Total 1580 ml 540 ml 120 ml Balance -255.7 ml -400.0 ml 3 ml Exam Constitutional: alert, oriented Psych: no complaints Head: atraumatic, normocephalic Neck: No jvd Respiratory: crackles/rales (mild at bases ), No clear to auscultation Cardiovascular: regular rate and rhythm, No edema, No systolic murmur Gastrointestinal: non-tender, soft Neurological: nl mental status, nl speech Results Result Diagram: 01/07/17 0430 01/07/17 0430 Results 24 hrs Laboratory Tests Test 01/06/17 09:59 01/06/17 12:04 01/06/17 16:22 01/06/17 18:28 Bedside Glucose 93 112 134 119 Test 01/06/17 21:29 01/06/17 23:50 01/07/17 01:53 01/07/17 04:30 Bedside Glucose 153 111 112 White Blood Count 13.9 H Red Blood Count 2.83 L Hemoglobin 8.3 L Hematocrit 24.7 L Mean Corpuscular Volume 87.3 Mean Corpuscular Hemoglobin 29.3 Mean Corpuscular Hemoglobin Concent 33.6 Red Cell Distribution Width 17.6 H Platelet Count 111 L Mean Platelet Volume 10.1 Neutrophils % 74.7 Lymphocytes % 12.7 L Monocytes % 10.3 Eosinophils % 0.3 Basophils % 0.6 Nucleated Red Blood Cells % 0.1 H Neutrophils # 10.4 H Lymphocytes # 1.8 Monocytes # 1.4 H Eosinophils # 0.0 Basophils # 0.1 Nucleated Red Blood Cells # 0.0 Sodium Level 133 L Potassium Level 3.9 Chloride Level 105 Carbon Dioxide Level 27 Anion Gap 5 L Blood Urea Nitrogen 10 Creatinine 1.14 H Glucose Level 89 Calcium Level 8.8 Phosphorus Level 2.4 L Magnesium Level 1.8 Test 01/07/17 04:59 01/07/17 05:28 01/07/17 07:00 01/07/17 08:11 Bedside Glucose 100 86 Lab Scanned Report BLOOD TRANSFUSION Blood Gas Specimen Source Blood arterial Arterial Blood Date Drawn 01/07/2017 8:30:29 AM Arterial Blood pH (Temp corrected) 7.460 H Arterial Blood pCO2 (Temp correct) 32.8 L Arterial Blood pO2 (Temp corrected) 89.5 Arterial Blood HCO3 22.8 Arterial Blood Base Excess -0.6 Arterial Blood Oxygen Saturation 96.2 Jemal Test ACCEPTAB Arterial Blood Gas Puncture Site Right Radial Arterial Blood Carboxyhemoglobin 0.3 Arterial Blood Methemoglobin 0.2 Blood Gas A-a O2 Differential 85.9 H Oxyhemoglobin Percent 95.7 Total Hemoglobin 9.3 L Blood Gas Temperature 37.0 Blood Gas Modality NASAL CANNULA FiO2 30.0 Blood Gas Notified Whom DT Blood Gas Notified Time 01/07/2017 8:51:50 AM Medications Medications Current Medications Morphine Sulfate (morphine) 2 mg Q2H PRN IV FOR NON CARDIAC PAIN (4-10) Last administered on 01/07/17 06:16; Admin Dose 2 MG; Start 01/02/17 at 17:00 Clopidogrel Bisulfate (plaVIX) 75 mg DAILY PO Last administered on 01/07/17 08 :34; Admin Dose 75 MG; Start 01/03/17 at 09:00 Atorvastatin Calcium (Lipitor) 40 mg HS PO Last administered on 01/06/17 21:38 ; Admin Dose 40 MG; Start 01/02/17 at 21:00 Amitriptyline HCl (Elavil) 75 mg QHS PO Last administered on 01/06/17 21:00; Admin Dose 75 MG; Start 01/03/17 at 21:00 Leflunomide (Arava) 20 mg DAILY PO Last administered on 01/07/17 08:34; Admin Dose 20 MG; Start 01/03/17 at 10:00; Status Future hold Meclizine HCl (Antivert) 25 mg Q8H PRN PO DIZZINESS; Start 01/03/17 at 08:30 Phenazopyridine HCl (Pyridium) 200 mg TID PO Last administered on 01/07/17 08: 34; Admin Dose 200 MG; Start 01/03/17 at 10:00 Ranitidine HCl (Zantac) 300 mg HS PO Last administered on 01/06/17 21:43; Admin Dose 300 MG; Start 01/03/17 at 21:00 Zolpidem Tartrate (Ambien) 5 mg HS PRN PO INSOMNIA Last administered on 21:08; Admin Dose 5 MG; Start 01/03/17 at 23:00 Mupirocin (Bactroban) 1 applic BID TOP Last administered on 01/07/17 08:34; Admin Dose 1 APPLIC; Start 01/04/17 at 21:00 Hydromorphone HCl (Dilaudid) 0.2 mg Q15M PRN IV PAIN LEVEL 1-5 Last administered on 01/05/17 09:19; Admin Dose 0.2 MG; Start 01/04/17 at 20:00 Hydromorphone HCl (Dilaudid) 0.4 mg Q15M PRN IV PAIN LEVEL 6-10; Start at 20:00 Oxycodone/ Acetaminophen (Percocet (5/ 325)) 1 tab Q3H PRN PO PAIN LEVEL 1-5; Start 01/04/17 at 20:00 Ondansetron HCl (Zofran Inj) 4 mg Q6H PRN IV NAUSEA AND/OR VOMITING; Start 01/04/17 at 20:00 Famotidine (Pepcid Iv) 20 mg BID@08,20 IV Last administered on 01/07/17 08:13 ; Admin Dose 20 MG; Start 01/04/17 at 20:00 Aspirin (Aspirin) 325 mg DAILY PO Last administered on 01/07/17 08:34; Admin Dose 325 MG; Start 01/05/17 at 09:00 Acetaminophen 650 mg 650 mg Q3H PRN PO ELEVATED TEMPERATURE; Start 01/04/17 at 20:00 Magnesium Sulfate/ Dextrose (Magnesium Sulfate 1 Gm/D5W) 100 ml @ 100 mls/hr PRN PRN IVPB PENDING LAB VALUE; Start 01/04/17 at 20:00 Diagnostic Test (Pha) (Accu-Chek) 1 ea Q1H XX Last administered on 01/07/17 08 :12; Admin Dose 1 EA; Start 01/04/17 at 20:30 Dextrose (D50w Syringe) 25 ml Q15M PRN IV Till BS 80 mg/dL or above x2; Start 01/04/17 at 20:30 Dextrose 50 ml 50 ml Q15M PRN IV Till BS 80 mg/dL or above x2; Start 01/04/17 at 20:30 Vancomycin HCl 750 mg/Sodium Chloride 150 ml @ 100 mls/hr Q24H IVPB Last administered on 01/06/17 10:43; Admin Dose 100 MLS/HR; Start 01/06/17 at 10:00 Cefepime HCl (Maxipime 1gm/50 ml (Pmx)) 50 ml @ 100 mls/hr Q24H IVPB Last administered on 01/07/17 08:13; Admin Dose 100 MLS/HR; Start 01/07/17 at 08:00 Amiodarone HCl (Cordarone) 200 mg BID PO ; Start 01/07/17 at 09:00 Lisinopril (Zestril) 5 mg DAILY PO ; Start 01/07/17 at 09:00 Metoprolol Tartrate (Lopressor) 50 mg BID PO ; Start 01/07/17 at 21:00 Metoprolol Tartrate (Lopressor) 25 mg ONCE PO ; Start 01/07/17 at 09:00; Stop 01/07/17 at 12:00 QING LI Jan 07, 2017 09:14
--- NOTE | 2017-01-07 09:35 | PN ---
Date/Time of Note Date/Time of Note DATE: 01/07/17 TIME: 09:33 Assessment/Plan VTE Prophylaxis VTE Prophylaxis Intervention: other Lines/Catheters IV Catheter Type (from [facility], [place]): L[place] Pete Central line still needed: Yes Urinary Cath still in place: Yes Reason Cath still needed: urinary retention Assessment/Plan Chief Complaint/Hosp Course SUBJECTIVE: The patient is currently in ICU. D/W cardiology. The patient was extubated on 01/05. No other events noted, no hemoptysis, hemetemesis, hematuria, fever, diaphoresis, new rash, hematochezia. good uop with lasix imaging studies were reviewed OBJECTIVE: HEENT: Head is normocephalic. NECK: Supple. CHEST: The patient has noted chest tubes. HEART: Regular rate. LUNGS: Show diminished breath sounds at base. ABDOMEN: Soft, nontender to palpation. No rebound or guarding. EXTREMITIES: Negative for clubbing, cyanosis, or edema. DERMATOLOGIC: No rashes. MUSCULOSKELETAL: No joint effusions. NEUROLOGIC: Limited. MEDICATIONS: Have been reviewed. ASSESSMENT AND PLAN: 1. Coronary artery disease, status post coronary artery bypass graft performed emergently 2-vessel. Continue current treatment plan. 2. Non-ST elevation myocardial infarction, status post cardiac catheterization with complications including RCA dissection requiring emergent coronary artery bypass graft. continue acei, asa, b-osmar 3. Status post cardiac arrest with spontaneous return of circulation. Continue to monitor. 4. Hypertension. BP is now at target 5. Respiratory failure, status post extubation. Currently the patient is currently stable. 6. Anemia. check iron panel. no transfusion yet 7. Leukocytosis, likely reactive. The patient is on antibiotic therapy, continue to monitor. Follow up with infectious disease. 8 Dysphagia. Continue speech therapy. 9. Diabetes. Continue current insulin regimen. 10. History of rheumatoid arthritis. Resume medications Novara. 11. Depression. Continue Elavil. 12. Gastrointestinal and deep venous thrombosis prophylaxis. Problems: Exam/Review of Systems Vital Signs Vitals Vital Signs Date Time Temp Pulse Resp B/P Pulse Ox O2 Delivery O2 Flow Rate FiO2 01/07/17 05:34 3.0 01/07/17 04:30 68 19 137/58 96 Nasal Cannula 01/07/17 04:00 98.4 01/06/17 04:22 36 Intake and Output 10/09/1701/06/17 01/07/17 15:00 23:00 07:00 Intake Total 1324.3 ml 140.0 ml 123 ml Output Total 1580 ml 540 ml 120 ml Balance -255.7 ml -400.0 ml 3 ml Results Result Diagram: 01/07/17 0430 01/07/17 0430 Results 24 hrs Laboratory Tests Test 01/06/17 09:59 01/06/17 12:04 01/06/17 16:22 01/06/17 18:28 Bedside Glucose 93 112 134 119 Test 01/06/17 21:29 01/06/17 23:50 01/07/17 01:53 01/07/17 04:30 Bedside Glucose 153 111 112 White Blood Count 13.9 H Red Blood Count 2.83 L Hemoglobin 8.3 L Hematocrit 24.7 L Mean Corpuscular Volume 87.3 Mean Corpuscular Hemoglobin 29.3 Mean Corpuscular Hemoglobin Concent 33.6 Red Cell Distribution Width 17.6 H Platelet Count 111 L Mean Platelet Volume 10.1 Neutrophils % 74.7 Lymphocytes % 12.7 L Monocytes % 10.3 Eosinophils % 0.3 Basophils % 0.6 Nucleated Red Blood Cells % 0.1 H Neutrophils # 10.4 H Lymphocytes # 1.8 Monocytes # 1.4 H Eosinophils # 0.0 Basophils # 0.1 Nucleated Red Blood Cells # 0.0 Sodium Level 133 L Potassium Level 3.9 Chloride Level 105 Carbon Dioxide Level 27 Anion Gap 5 L Blood Urea Nitrogen 10 Creatinine 1.14 H Glucose Level 89 Calcium Level 8.8 Phosphorus Level 2.4 L Magnesium Level 1.8 Test 01/07/17 04:59 01/07/17 05:28 01/07/17 07:00 01/07/17 08:11 Bedside Glucose 100 86 Lab Scanned Report BLOOD TRANSFUSION Blood Gas Specimen Source Blood arterial Arterial Blood Date Drawn 01/07/2017 8:30:29 AM Arterial Blood pH (Temp corrected) 7.460 H Arterial Blood pCO2 (Temp correct) 32.8 L Arterial Blood pO2 (Temp corrected) 89.5 Arterial Blood HCO3 22.8 Arterial Blood Base Excess -0.6 Arterial Blood Oxygen Saturation 96.2 Jemal Test ACCEPTAB Arterial Blood Gas Puncture Site Right Radial Arterial Blood Carboxyhemoglobin 0.3 Arterial Blood Methemoglobin 0.2 Blood Gas A-a O2 Differential 85.9 H Oxyhemoglobin Percent 95.7 Total Hemoglobin 9.3 L Blood Gas Temperature 37.0 Blood Gas Modality NASAL CANNULA FiO2 30.0 Blood Gas Notified Whom DT Blood Gas Notified Time 01/07/2017 8:51:50 AM Medications Medications Current Medications Morphine Sulfate (morphine) 2 mg Q2H PRN IV FOR NON CARDIAC PAIN (4-10) Last administered on 01/07/17 06:16; Admin Dose 2 MG; Start 01/02/17 at 17:00 Clopidogrel Bisulfate (plaVIX) 75 mg DAILY PO Last administered on 01/07/17 08 :34; Admin Dose 75 MG; Start 01/03/17 at 09:00 Atorvastatin Calcium (Lipitor) 40 mg HS PO Last administered on 01/06/17 21:38 ; Admin Dose 40 MG; Start 01/02/17 at 21:00 Amitriptyline HCl (Elavil) 75 mg QHS PO Last administered on 01/06/17 21:00; Admin Dose 75 MG; Start 01/03/17 at 21:00 Leflunomide (Arava) 20 mg DAILY PO Last administered on 01/07/17 08:34; Admin Dose 20 MG; Start 01/03/17 at 10:00; Status Future hold Meclizine HCl (Antivert) 25 mg Q8H PRN PO DIZZINESS; Start 01/03/17 at 08:30 Phenazopyridine HCl (Pyridium) 200 mg TID PO Last administered on 01/07/17 08: 34; Admin Dose 200 MG; Start 01/03/17 at 10:00 Ranitidine HCl (Zantac) 300 mg HS PO Last administered on 01/06/17 21:43; Admin Dose 300 MG; Start 01/03/17 at 21:00 Zolpidem Tartrate (Ambien) 5 mg HS PRN PO INSOMNIA Last administered on 21:08; Admin Dose 5 MG; Start 01/03/17 at 23:00 Mupirocin (Bactroban) 1 applic BID TOP Last administered on 01/07/17 08:34; Admin Dose 1 APPLIC; Start 01/04/17 at 21:00 Hydromorphone HCl (Dilaudid) 0.2 mg Q15M PRN IV PAIN LEVEL 1-5 Last administered on 01/05/17 09:19; Admin Dose 0.2 MG; Start 01/04/17 at 20:00 Hydromorphone HCl (Dilaudid) 0.4 mg Q15M PRN IV PAIN LEVEL 6-10; Start at 20:00 Oxycodone/ Acetaminophen (Percocet (5/ 325)) 1 tab Q3H PRN PO PAIN LEVEL 1-5; Start 01/04/17 at 20:00 Ondansetron HCl (Zofran Inj) 4 mg Q6H PRN IV NAUSEA AND/OR VOMITING; Start 01/04/17 at 20:00 Famotidine (Pepcid Iv) 20 mg BID@08,20 IV Last administered on 01/07/17 08:13 ; Admin Dose 20 MG; Start 01/04/17 at 20:00 Aspirin (Aspirin) 325 mg DAILY PO Last administered on 01/07/17 08:34; Admin Dose 325 MG; Start 01/05/17 at 09:00 Acetaminophen 650 mg 650 mg Q3H PRN PO ELEVATED TEMPERATURE; Start 01/04/17 at 20:00 Magnesium Sulfate/ Dextrose (Magnesium Sulfate 1 Gm/D5W) 100 ml @ 100 mls/hr PRN PRN IVPB PENDING LAB VALUE; Start 01/04/17 at 20:00 Diagnostic Test (Pha) (Accu-Chek) 1 ea Q1H XX Last administered on 01/07/17 08 :12; Admin Dose 1 EA; Start 01/04/17 at 20:30 Dextrose (D50w Syringe) 25 ml Q15M PRN IV Till BS 80 mg/dL or above x2; Start 01/04/17 at 20:30 Dextrose 50 ml 50 ml Q15M PRN IV Till BS 80 mg/dL or above x2; Start 01/04/17 at 20:30 Vancomycin HCl 750 mg/Sodium Chloride 150 ml @ 100 mls/hr Q24H IVPB Last administered on 01/06/17 10:43; Admin Dose 100 MLS/HR; Start 01/06/17 at 10:00 Cefepime HCl (Maxipime 1gm/50 ml (Pmx)) 50 ml @ 100 mls/hr Q24H IVPB Last administered on 01/07/17 08:13; Admin Dose 100 MLS/HR; Start 01/07/17 at 08:00 Amiodarone HCl (Cordarone) 200 mg BID PO ; Start 01/07/17 at 09:00 Lisinopril (Zestril) 5 mg DAILY PO ; Start 01/07/17 at 09:00 Metoprolol Tartrate (Lopressor) 50 mg BID PO ; Start 01/07/17 at 21:00 Metoprolol Tartrate (Lopressor) 25 mg ONCE PO ; Start 01/07/17 at 09:00; Stop 01/07/17 at 12:00 SOL ENG DO Jan 07, 2017 09:35
[2017-01-07] MEDS: AMIODARONE 200 MG TAB PO SCH ×2 (09:55→21:19)
[2017-01-07] MEDS: LISINOPRIL 5 MG TAB PO SCH (09:56)
[2017-01-07] MEDS: VANCOMYCIN 750 MG in SOD CHLORIDE 0.9% 150 ML IVPB SCH (09:56)
[2017-01-07] MEDS ORDERED: POTASSIUM PHOSPHATE 20 MEQ in SOD CHLORIDE 0.9% 250 ML IVPB ONE (11:00)
--- NOTE | 2017-01-07 11:50 | CONS ---
Date/Time of Note Date/Time of Note DATE: 01/07/17 TIME: 11:49 Consult Date/Type/Reason Admit Date/Time Jan 02, 2017 at 17:02 Initial Consult Date 01/05/17 Type of Consultation: Pulm/CCM Ordering Provider: QING LI Subjective No events. CVC removed. Objective Vital Signs Date Time Temp Pulse Resp B/P Pulse Ox O2 Delivery O2 Flow Rate FiO2 01/07/17 10:00 69 26 161/81 96 Nasal Cannula 01/07/17 08:00 3.0 01/07/17 08:00 98.2 01/06/17 04:22 36 Intake and Output 01/06/17 01/06/17 01/07/17 15:00 23:00 07:00 Intake Total 1324.3 ml 140.0 ml 123 ml Output Total 1580 ml 540 ml 120 ml Balance -255.7 ml -400.0 ml 3 ml Exam NECK: Supple. No JVD or lymphadenopathy. CARDIAC EXAM: S1, S2. No added sounds or murmurs. CHEST: clear bilaterally, No added sounds, rales or wheezes ABDOMEN: Soft, nontender. No guarding or rebound. EXTREMITIES: No cyanosis, clubbing or edema. Results/Medications Result Diagram: 01/07/17 0430 01/07/17 0430 Results 24 hrs Laboratory Tests Test 01/06/17 12:04 01/06/17 16:22 01/06/17 18:28 01/06/17 21:29 Bedside Glucose 112 134 119 153 Test 01/06/17 23:50 01/07/17 01:53 01/07/17 04:30 01/07/17 04:59 Bedside Glucose 111 112 100 White Blood Count 13.9 H Red Blood Count 2.83 L Hemoglobin 8.3 L Hematocrit 24.7 L Mean Corpuscular Volume 87.3 Mean Corpuscular Hemoglobin 29.3 Mean Corpuscular Hemoglobin Concent 33.6 Red Cell Distribution Width 17.6 H Platelet Count 111 L Mean Platelet Volume 10.1 Neutrophils % 74.7 Lymphocytes % 12.7 L Monocytes % 10.3 Eosinophils % 0.3 Basophils % 0.6 Nucleated Red Blood Cells % 0.1 H Neutrophils # 10.4 H Lymphocytes # 1.8 Monocytes # 1.4 H Eosinophils # 0.0 Basophils # 0.1 Nucleated Red Blood Cells # 0.0 Sodium Level 133 L Potassium Level 3.9 Chloride Level 105 Carbon Dioxide Level 27 Anion Gap 5 L Blood Urea Nitrogen 10 Creatinine 1.14 H Glucose Level 89 Calcium Level 8.8 Phosphorus Level 2.4 L Magnesium Level 1.8 Test 01/07/17 05:28 01/07/17 07:00 01/07/17 08:11 Lab Scanned Report BLOOD TRANSFUSION Blood Gas Specimen Source Blood arterial Arterial Blood Date Drawn 01/07/2017 8:30:29 AM Arterial Blood pH (Temp corrected) 7.460 H Arterial Blood pCO2 (Temp correct) 32.8 L Arterial Blood pO2 (Temp corrected) 89.5 Arterial Blood HCO3 22.8 Arterial Blood Base Excess -0.6 Arterial Blood Oxygen Saturation 96.2 Jemal Test ACCEPTAB Arterial Blood Gas Puncture Site Right Radial Arterial Blood Carboxyhemoglobin 0.3 Arterial Blood Methemoglobin 0.2 Blood Gas A-a O2 Differential 85.9 H Oxyhemoglobin Percent 95.7 Total Hemoglobin 9.3 L Blood Gas Temperature 37.0 Blood Gas Modality NASAL CANNULA FiO2 30.0 Blood Gas Notified Whom DT Blood Gas Notified Time 01/07/2017 8:51:50 AM Bedside Glucose 86 Medications Current Medications Morphine Sulfate (morphine) 2 mg Q2H PRN IV FOR NON CARDIAC PAIN (4-10) Last administered on 01/07/17 06:16; Admin Dose 2 MG; Start 01/02/17 at 17:00 Clopidogrel Bisulfate (plaVIX) 75 mg DAILY PO Last administered on 01/07/17 08 :34; Admin Dose 75 MG; Start 01/03/17 at 09:00 Atorvastatin Calcium (Lipitor) 40 mg HS PO Last administered on 01/06/17 21:38 ; Admin Dose 40 MG; Start 01/02/17 at 21:00 Amitriptyline HCl (Elavil) 75 mg QHS PO Last administered on 01/06/17 21:00; Admin Dose 75 MG; Start 01/03/17 at 21:00 Leflunomide (Arava) 20 mg DAILY PO Last administered on 01/07/17 08:34; Admin Dose 20 MG; Start 01/03/17 at 10:00; Status Future hold Meclizine HCl (Antivert) 25 mg Q8H PRN PO DIZZINESS; Start 01/03/17 at 08:30 Phenazopyridine HCl (Pyridium) 200 mg TID PO Last administered on 01/07/17 08: 34; Admin Dose 200 MG; Start 01/03/17 at 10:00 Ranitidine HCl (Zantac) 300 mg HS PO Last administered on 01/06/17 21:43; Admin Dose 300 MG; Start 01/03/17 at 21:00 Zolpidem Tartrate (Ambien) 5 mg HS PRN PO INSOMNIA Last administered on 21:08; Admin Dose 5 MG; Start 01/03/17 at 23:00 Mupirocin (Bactroban) 1 applic BID TOP Last administered on 01/07/17 08:34; Admin Dose 1 APPLIC; Start 01/04/17 at 21:00 Hydromorphone HCl (Dilaudid) 0.2 mg Q15M PRN IV PAIN LEVEL 1-5 Last administered on 01/05/17 09:19; Admin Dose 0.2 MG; Start 01/04/17 at 20:00 Hydromorphone HCl (Dilaudid) 0.4 mg Q15M PRN IV PAIN LEVEL 6-10; Start at 20:00 Oxycodone/ Acetaminophen (Percocet (5/ 325)) 1 tab Q3H PRN PO PAIN LEVEL 1-5; Start 01/04/17 at 20:00 Ondansetron HCl (Zofran Inj) 4 mg Q6H PRN IV NAUSEA AND/OR VOMITING; Start 01/04/17 at 20:00 Famotidine (Pepcid Iv) 20 mg BID@08,20 IV Last administered on 01/07/17 08:13 ; Admin Dose 20 MG; Start 01/04/17 at 20:00 Aspirin (Aspirin) 325 mg DAILY PO Last administered on 01/07/17 08:34; Admin Dose 325 MG; Start 01/05/17 at 09:00 Acetaminophen 650 mg 650 mg Q3H PRN PO ELEVATED TEMPERATURE; Start 01/04/17 at 20:00 Magnesium Sulfate/ Dextrose 100 ml @ 100 mls/hr PRN PRN IVPB PENDING LAB VALUE ; Start 01/04/17 at 20:00 Vancomycin HCl 750 mg/Sodium Chloride 150 ml @ 100 mls/hr Q24H IVPB Last administered on 01/07/17 09:56; Admin Dose 100 MLS/HR; Start 01/06/17 at 10:00 Cefepime HCl (Maxipime 1gm/50 ml (Pmx)) 50 ml @ 100 mls/hr Q24H IVPB Last administered on 01/07/17 08:13; Admin Dose 100 MLS/HR; Start 01/07/17 at 08:00 Amiodarone HCl (Cordarone) 200 mg BID PO Last administered on 01/07/17 09:55; Admin Dose 200 MG; Start 01/07/17 at 09:00 Lisinopril (Zestril) 5 mg DAILY PO Last administered on 01/07/17 09:56; Admin Dose 5 MG; Start 01/07/17 at 09:00 Metoprolol Tartrate (Lopressor) 50 mg BID PO ; Start 01/07/17 at 21:00 Metoprolol Tartrate 25 mg 25 mg ONCE PO Last administered on 01/07/17 09:56; Admin Dose 25 MG; Start 01/07/17 at 09:00; Stop 01/07/17 at 12:00 Potassium Phosphate/Sodium Chloride (K Phos (Meq)/NS) 254.5455 ml @ 63.636 m... ONCE ONCE IVPB ; Start 01/07/17 at 11:00; Stop 01/07/17 at 14:59 Miscellaneous Information (*Rx Drug Level Order Reminder*) VANCOMYCIN TROUGH AT 0900 ONCE ONCE XX ; Start 01/08/17 at 09:00; Stop 01/08/17 at 09:01 Assessment/Plan Additional Assessment/Plan IMP: 1. Patient admitted with non-STEMI , underwent coronary angiography then required emergent CABG. 2. Status post CPR lasting 10 minutes with revival of vital signs. Patient currently is hemodynamically stable, off pressor support. Amiodarone drip 3. Leukocytosis. Etiology is unclear possibly early aspiration. Patient currently on appropriate antibiotic regimen. 4. Anemia. 5. History of chronic urinary retention, with placement of Jang catheter on a chronic basis. 6. Respiratory failure now extubated RECS: 1. ICS 2. Continue rate control 3. Aspiration precautions 4. Gentle diuresis 5. Continue broad-spectrum antibiotic--> de-escalate Critical care time 40 minutes ALTAGRACIA LOZADA MD Jan 07, 2017 11:50
--- NOTE | 2017-01-07 12:23 | RADRPT ---
PROCEDURE: XR Chest. CLINICAL INDICATION: Shortness of breath. TECHNIQUE: Single frontal view. COMPARISON: 01/06/2017. FINDINGS: The right internal jugular vein catheter, mediastinal drain and bilateral chest tubes remain in sati sfactory position. There is mild pulmonary edema and bibasilar atelectasis, improved. The heart is enlarged. There is calcification in the aorta consistent with atherosclerosis. There is no pleural effusion. There is no pneumothorax. IMPRESSION: 1. Improved appearance of the lungs. 2. No other change from 01/06/2017. RPTAT: QQ .Slade Lyn MD, MD Date Time Electronically viewed and signed by .Slade Lyn MD, MD on 01/07/2017 12:23 .R/
[2017-01-07] MEDS: AMITRIPTYLINE 25 MG TAB PO SCH (21:18)
[2017-01-07] MEDS: ATORVASTATIN 40 MG TAB PO SCH (21:19)
[2017-01-07] MEDS: RANITIDINE 150 MG TAB PO SCH (21:20)
[2017-01-08] VITALS (13 sets, daily range): BP systolic 83–141; BP diastolic 45–69; PULSE 66–78; RESP 16–21
[2017-01-08 05:57] LABS: BASOPHIL # 0.1 10^3/ul (0.0-0.1); BASOPHILS % 0.6 % (0.0-2.0); EOSINOPHILS # 0.1 10^3/ul (0.0-0.5); EOSINOPHILS % 0.6 % (0.0-7.0); HEMATOCRIT 27.9 % (37.0-47.0); HEMOGLOBIN 9.1 g/dl (12.0-16.0); LYMPHOCYTES # 1.6 10^3/ul (0.8-2.9); LYMPHOCYTES % 14.7 % (15.0-51.0); MEAN CORPUSCULAR HEMOGLOBIN 28.7 pg (29.0-33.0); MEAN CORPUSCULAR HGB CONC 32.6 g/dl (32.0-37.0); MEAN PLATELET VOLUME 10.9 fl (7.4-10.4); MONOCYTE # 1.3 10^3/ul (0.3-0.9); MONOCYTES % 11.9 % (0.0-11.0); NEUTROPHIL # 7.7 10^3/ul (1.6-7.5); NEUTROPHILS % 70.5 % (39.0-77.0); PLATELET COUNT 127 10^3/UL (140-415); RED BLOOD COUNT 3.17 10^6/ul (4.20-5.40); RED CELL DISTRIBUTION WIDTH 18.1 % (11.5-14.5); WHITE BLOOD COUNT 10.9 10^3/ul (4.8-10.8)
[2017-01-08 06:10] LABS: IRON 73 ug/dl (35-150)
[2017-01-08 06:16] LABS: CALCIUM 8.2 mg/dl (8.4-10.2); CREATININE 0.99 mg/dl (0.44-1.00); MAGNESIUM 1.8 mg/dl (1.7-2.5); POTASSIUM 3.8 mmol/L (3.5-5.1)
[2017-01-08 06:19] LABS: TOTAL IRON BINDING CAPACITY 175 ug/dl (241-421)
[2017-01-08] MEDS: ACCU-CHEK XX SCH ×4 (07:25→21:13)
--- NOTE | 2017-01-08 08:49 | PN ---
Date/Time of Note Date/Time of Note DATE: 01/08/17 TIME: 08:47 Assessment/Plan VTE Prophylaxis VTE Prophylaxis Intervention: ambulation, anti-embolic stocking Lines/Catheters IV Catheter Type (from Nrsg): Peripheral IV Urinary Cath still in place: Yes (SUPRAPUBIC CATH) Reason Cath still needed: urinary retention Assessment/Plan Assessment/Plan Stable. Incisions OK. Says can't swallow. Needs eval for such and possible PEG for nutrition. Has lost weight. Exam/Review of Systems Vital Signs Vitals Vital Signs Date Time Temp Pulse Resp B/P Pulse Ox O2 Delivery O2 Flow Rate FiO2 01/08/17 07:59 99.2 78 21 131/63 92 01/08/17 05:00 Nasal Cannula 3.0 01/08/17 02:50 31 Intake and Output 01/07/17 01/07/17 01/08/17 14:59 22:59 06:59 Intake Total 200 ml 450 ml Output Total 750 ml Balance 200 ml -300 ml Results Result Diagram: 01/08/17 0521 01/08/1721 Results 24 hrs Laboratory Tests Test 01/07/17 12:08 01/07/17 18:03 01/08/17 05:21 01/08/17 08:13 Bedside Glucose 89 90 93 White Blood Count 10.9 #H Red Blood Count 3.17 L Hemoglobin 9.1 L Hematocrit 27.9 L Mean Corpuscular Volume 88.0 Mean Corpuscular Hemoglobin 28.7 L Mean Corpuscular Hemoglobin Concent 32.6 Red Cell Distribution Width 18.1 H Platelet Count 127 L Mean Platelet Volume 10.9 H Neutrophils % 70.5 Lymphocytes % 14.7 L Monocytes % 11.9 H Eosinophils % 0.6 Basophils % 0.6 Nucleated Red Blood Cells % 0.0 Neutrophils # 7.7 H Lymphocytes # 1.6 Monocytes # 1.3 H Eosinophils # 0.1 Basophils # 0.1 Nucleated Red Blood Cells # 0.0 Sodium Level 134 L Potassium Level 3.8 Chloride Level 106 Carbon Dioxide Level 26 Anion Gap 6 L Blood Urea Nitrogen 10 Creatinine 0.99 Glucose Level 78 Calcium Level 8.2 L Phosphorus Level 3.0 Magnesium Level 1.8 Iron Level 73 Total Iron Binding Capacity 175 L Percent Iron Saturation 42 Medications Medications Current Medications Morphine Sulfate (morphine) 2 mg Q2H PRN IV FOR NON CARDIAC PAIN (4-10) Last administered on 01/07/17 21:40; Admin Dose 2 MG; Start 01/02/17 at 17:00 Clopidogrel Bisulfate (plaVIX) 75 mg DAILY PO Last administered on 01/07/17 08 :34; Admin Dose 75 MG; Start 01/03/17 at 09:00 Atorvastatin Calcium (Lipitor) 40 mg HS PO Last administered on 01/07/17 21:19 ; Admin Dose 40 MG; Start 01/02/17 at 21:00 Amitriptyline HCl (Elavil) 75 mg QHS PO Last administered on 01/07/17 21:18; Admin Dose 75 MG; Start 01/03/17 at 21:00 Leflunomide (Arava) 20 mg DAILY PO Last administered on 01/07/17 08:34; Admin Dose 20 MG; Start 01/03/17 at 10:00; Status Future hold Meclizine HCl (Antivert) 25 mg Q8H PRN PO DIZZINESS; Start 01/03/17 at 08:30 Phenazopyridine HCl (Pyridium) 200 mg TID PO Last administered on 01/07/17 21: 19; Admin Dose 200 MG; Start 01/03/17 at 10:00 Ranitidine HCl (Zantac) 300 mg HS PO Last administered on 01/07/17 21:20; Admin Dose 300 MG; Start 01/03/17 at 21:00 Zolpidem Tartrate (Ambien) 5 mg HS PRN PO INSOMNIA Last administered on 21:08; Admin Dose 5 MG; Start 01/03/17 at 23:00 Mupirocin (Bactroban) 1 applic BID TOP Last administered on 01/07/17 21:41; Admin Dose 1 APPLIC; Start 01/04/17 at 21:00 Hydromorphone HCl (Dilaudid) 0.2 mg Q15M PRN IV PAIN LEVEL 1-5 Last administered on 01/05/17 09:19; Admin Dose 0.2 MG; Start 01/04/17 at 20:00 Hydromorphone HCl (Dilaudid) 0.4 mg Q15M PRN IV PAIN LEVEL 6-10; Start at 20:00 Oxycodone/ Acetaminophen (Percocet (5/ 325)) 1 tab Q3H PRN PO PAIN LEVEL 1-5; Start 01/04/17 at 20:00 Ondansetron HCl (Zofran Inj) 4 mg Q6H PRN IV NAUSEA AND/OR VOMITING; Start 01/04/17 at 20:00 Famotidine (Pepcid Iv) 20 mg BID@08,20 IV Last administered on 01/07/17 21:20 ; Admin Dose 20 MG; Start 01/04/17 at 20:00 Aspirin (Aspirin) 325 mg DAILY PO Last administered on 01/07/17 08:34; Admin Dose 325 MG; Start 01/05/17 at 09:00 Acetaminophen 650 mg 650 mg Q3H PRN PO ELEVATED TEMPERATURE; Start 01/04/17 at 20:00 Magnesium Sulfate/ Dextrose 100 ml @ 100 mls/hr PRN PRN IVPB PENDING LAB VALUE ; Start 01/04/17 at 20:00 Vancomycin HCl 750 mg/Sodium Chloride 150 ml @ 100 mls/hr Q24H IVPB Last administered on 01/07/17 09:56; Admin Dose 100 MLS/HR; Start 01/06/17 at 10:00 Cefepime HCl (Maxipime 1gm/50 ml (Pmx)) 50 ml @ 100 mls/hr Q24H IVPB Last administered on 01/07/17 08:13; Admin Dose 100 MLS/HR; Start 01/07/17 at 08:00 Amiodarone HCl (Cordarone) 200 mg BID PO Last administered on 01/07/17 21:19; Admin Dose 200 MG; Start 01/07/17 at 09:00 Lisinopril (Zestril) 5 mg DAILY PO Last administered on 01/07/17 09:56; Admin Dose 5 MG; Start 01/07/17 at 09:00 Metoprolol Tartrate (Lopressor) 50 mg BID PO Last administered on 01/07/17 21: 19; Admin Dose 50 MG; Start 01/07/17 at 21:00 Miscellaneous Information (*Rx Drug Level Order Reminder*) VANCOMYCIN TROUGH AT 0900 ONCE ONCE XX ; Start 01/08/17 at 09:00; Stop 01/08/17 at 09:01 CATALINA OSBORN MD Jan 08, 2017 08:49
[2017-01-08] MEDS: MUPIROCIN 2% 22 GM OINT TOP SCH ×2 (09:00→21:03)
[2017-01-08] MEDS: LISINOPRIL 5 MG TAB PO SCH (09:00)
[2017-01-08] MEDS: CEFEPIME 1GM/50 ML (PMX) 50 ML IVPB SCH (09:37)
[2017-01-08] MEDS: PHENAZOPYRIDINE 200 MG TAB PO SCH ×3 (09:38→21:01)
[2017-01-08] MEDS: FAMOTIDINE 20 MG INJ IV SCH ×2 (09:38→21:00)
[2017-01-08] MEDS: LEFLUNOMIDE 10 MG TAB PO SCH (09:38)
[2017-01-08] MEDS: AMIODARONE 200 MG TAB PO SCH ×2 (09:39→21:01)
[2017-01-08] MEDS: CLOPIDOGREL 75 MG TAB PO SCH (09:39)
[2017-01-08] MEDS: METOPROLOL 25 MG TAB PO SCH ×2 (09:40→21:02)
[2017-01-08] MEDS: ASPIRIN 325 MG TAB PO SCH (09:48)
--- NOTE | 2017-01-08 10:45 | PN ---
Date/Time of Note Date/Time of Note DATE: 01/08/17 TIME: 10:44 Assessment/Plan VTE Prophylaxis VTE Prophylaxis Intervention: other Lines/Catheters IV C[facility]ter Type (from [facility]): Peripheral IV Urinary Cath still in place: Yes (SUPRAPUBIC CATH) Reason Cath still needed: urinary retention Assessment/Plan Chief Complaint/Hosp Course SUBJECTIVE: The patient is currently in Tele. D/W cardiology. The patient was extubated on 01/05. No other events noted, no hemoptysis, hemetemesis, hematuria, fever, diaphoresis, new rash, hematochezia. good uop with lasix imaging studies were reviewed has dysphagia OBJECTIVE: HEENT: Head is normocephalic. NECK: Supple. HEART: Regular rate. LUNGS: Show diminished breath sounds at base. ABDOMEN: Soft, nontender to palpation. No rebound or guarding. EXTREMITIES: Negative for clubbing, cyanosis, or edema. DERMATOLOGIC: No rashes. MUSCULOSKELETAL: No joint effusions. NEUROLOGIC: Limited. MEDICATIONS: Have been reviewed. ASSESSMENT AND PLAN: 1. Coronary artery disease, status post coronary artery bypass graft performed emergently 2-vessel. Continue current treatment plan. 2. Non-ST elevation myocardial infarction, status post cardiac catheterization with complications including RCA dissection requiring emergent coronary artery bypass graft. continue acei, asa, b-osmar 3. Status post cardiac arrest with spontaneous return of circulation. Continue to monitor. 4. Hypertension. BP is now at target 5. Respiratory failure, status post extubation. Currently the patient is currently stable. 6. Anemia. check iron panel. no transfusion yet 7. Leukocytosis, likely reactive. The patient is on antibiotic therapy, continue to monitor. Follow up with infectious disease. 8 Dysphagia. Continue speech therapy. may need tube-feeding if she continues to lose weight 9. Diabetes. Continue current insulin regimen. 10. History of rheumatoid arthritis. Resume medications Novara. 11. Depression. Continue Elavil. 12. Gastrointestinal and deep venous thrombosis prophylaxis. Problems: Exam/Review of Systems Vital Signs Vitals Vital Signs Date Time Temp Pulse Resp B/P Pulse Ox O2 Delivery O2 Flow Rate FiO2 01/08/17 08:48 76 01/08/17 07:59 99.2 21 131/63 92 01/08/17 05:00 Nasal Cannula 3.0 01/08/17 02:50 31 Intake and Output 01/07/17 01/07/17 01/08/17 15:00 23:00 07:00 Intake Total 200 ml 450 ml Output Total 750 ml Balance 200 ml -300 ml Results Result Diagram: 01/08/1752001/08/17520 Results 24 hrs Laboratory Tests Test 01/07/17 12:08 01/07/17 18:03 01/08/17 05:21 01/08/17 08:13 Bedside Glucose 89 90 93 White Blood Count 10.9 #H Red Blood Count 3.17 L Hemoglobin 9.1 L Hematocrit 27.9 L Mean Corpuscular Volume 88.0 Mean Corpuscular Hemoglobin 28.7 L Mean Corpuscular Hemoglobin Concent 32.6 Red Cell Distribution Width 18.1 H Platelet Count 127 L Mean Platelet Volume 10.9 H Neutrophils % 70.5 Lymphocytes % 14.7 L Monocytes % 11.9 H Eosinophils % 0.6 Basophils % 0.6 Nucleated Red Blood Cells % 0.0 Neutrophils # 7.7 H Lymphocytes # 1.6 Monocytes # 1.3 H Eosinophils # 0.1 Basophils # 0.1 Nucleated Red Blood Cells # 0.0 Sodium Level 134 L Potassium Level 3.8 Chloride Level 106 Carbon Dioxide Level 26 Anion Gap 6 L Blood Urea Nitrogen 10 Creatinine 0.99 Glucose Level 78 Calcium Level 8.2 L Phosphorus Level 3.0 Magnesium Level 1.8 Iron Level 73 Total Iron Binding Capacity 175 L Percent Iron Saturation 42 Test 01/08/17 09:30 Vancomycin Level Trough 10.2 Medications Medications Current Medications Morphine Sulfate (morphine) 2 mg Q2H PRN IV FOR NON CARDIAC PAIN (4-10) Last administered on 01/07/17 21:40; Admin Dose 2 MG; Start 01/02/17 at 17:00 Clopidogrel Bisulfate (plaVIX) 75 mg DAILY PO Last administered on 01/08/17 09 :39; Admin Dose 75 MG; Start 01/03/17 at 09:00 Atorvastatin Calcium (Lipitor) 40 mg HS PO Last administered on 01/07/17 21:19 ; Admin Dose 40 MG; Start 01/02/17 at 21:00 Amitriptyline HCl (Elavil) 75 mg QHS PO Last administered on 01/07/17 21:18; Admin Dose 75 MG; Start 01/03/17 at 21:00 Leflunomide (Arava) 20 mg DAILY PO Last administered on 01/08/17 09:38; Admin Dose 20 MG; Start 01/03/17 at 10:00; Status Future hold Meclizine HCl (Antivert) 25 mg Q8H PRN PO DIZZINESS; Start 01/03/17 at 08:30 Phenazopyridine HCl (Pyridium) 200 mg TID PO Last administered on 01/08/17 09: 38; Admin Dose 200 MG; Start 01/03/17 at 10:00 Ranitidine HCl (Zantac) 300 mg HS PO Last administered on 01/07/17 21:20; Admin Dose 300 MG; Start 01/03/17 at 21:00 Zolpidem Tartrate (Ambien) 5 mg HS PRN PO INSOMNIA Last administered on 21:08; Admin Dose 5 MG; Start 01/03/17 at 23:00 Mupirocin (Bactroban) 1 applic BID TOP Last administered on 01/07/17 21:41; Admin Dose 1 APPLIC; Start 01/04/17 at 21:00 Hydromorphone HCl (Dilaudid) 0.2 mg Q15M PRN IV PAIN LEVEL 1-5 Last administered on 01/05/17 09:19; Admin Dose 0.2 MG; Start 01/04/17 at 20:00 Hydromorphone HCl (Dilaudid) 0.4 mg Q15M PRN IV PAIN LEVEL 6-10; Start at 20:00 Oxycodone/ Acetaminophen (Percocet (5/ 325)) 1 tab Q3H PRN PO PAIN LEVEL 1-5; Start 01/04/17 at 20:00 Ondansetron HCl (Zofran Inj) 4 mg Q6H PRN IV NAUSEA AND/OR VOMITING; Start 01/04/17 at 20:00 Famotidine (Pepcid Iv) 20 mg BID@08,20 IV Last administered on 01/08/17 09:38 ; Admin Dose 20 MG; Start 01/04/17 at 20:00 Aspirin (Aspirin) 325 mg DAILY PO Last administered on 01/08/17 09:48; Admin Dose 325 MG; Start 01/05/17 at 09:00 Acetaminophen 650 mg 650 mg Q3H PRN PO ELEVATED TEMPERATURE; Start 01/04/17 at 20:00 Magnesium Sulfate/ Dextrose 100 ml @ 100 mls/hr PRN PRN IVPB PENDING LAB VALUE ; Start 01/04/17 at 20:00 Vancomycin HCl 750 mg/Sodium Chloride 150 ml @ 100 mls/hr Q24H IVPB Last administered on 01/07/17 09:56; Admin Dose 100 MLS/HR; Start 01/06/17 at 10:00 Cefepime HCl (Maxipime 1gm/50 ml (Pmx)) 50 ml @ 100 mls/hr Q24H IVPB Last administered on 01/08/17 09:37; Admin Dose 100 MLS/HR; Start 01/07/17 at 08:00 Amiodarone HCl (Cordarone) 200 mg BID PO Last administered on 01/08/17 09:39; Admin Dose 200 MG; Start 01/07/17 at 09:00 Lisinopril (Zestril) 5 mg DAILY PO Last administered on 01/07/17 09:56; Admin Dose 5 MG; Start 01/07/17 at 09:00 Metoprolol Tartrate (Lopressor) 50 mg BID PO Last administered on 01/08/17 09: 40; Admin Dose 50 MG; Start 01/07/17 at 21:00 SOL ENG DO Jan 08, 2017 10:45
[2017-01-08] MEDS: VANCOMYCIN 750 MG in SOD CHLORIDE 0.9% 150 ML IVPB SCH (12:44)
--- NOTE | 2017-01-08 15:08 | CONS ---
Date/Time of Note Date/Time of Note DATE: 01/08/17 TIME: 15:04 Assessment/Plan Assessment/Plan Chief Complaint/Hosp Course SUBJECTIVE: No acute changes. Transfer to telemetry, alert feels good denies pain INDWELLINGS: Suprapubic catheter. ANTIMICROBIALS: The patient is on Vancomycin and Cefepime. PHYSICAL EXAMINATION: GENERAL: This is a fragile, well-developed, elderly woman who is in no distress. HEENT: Head atraumatic, normocephalic. Sclerae anicteric. Buccal mucosa dry. NECK: Supple. CHEST: Rise symmetrical. Breath sounds with crackles. HEART: S1, S2. ABDOMEN: Soft. Bowel tones hypoactive. EXTREMITIES: Without cyanosis. ASSESSMENT: 1. Systemic inflammatory response syndrome. 2. Status post acute respiratory failure. 3. PSA UTI. 4. Diabetes. 5. Status post cardiac arrest and coronary artery bypass graft. 6. Methicillin-resistant Staphylococcus aureus nares colonization. 7. Chronic suprapubic catheter. PLAN: The patient remains stable, we are going to discontinue vancomycin, continue cefepime. DW staff Problems: Consultation Date/Type/Reason Admit Date/Time Jan 02, 2017 at 17:02 Type of Consultation: ID Referring Provider: QING LI Exam/Review of Systems Vital Signs Vitals Vital Signs Date Time Temp Pulse Resp B/P Pulse Ox O2 Delivery O2 Flow Rate FiO2 01/08/17 14:46 Nasal Cannula 3.0 01/08/17 12:26 74 01/08/17 12:06 98.3 16 141/69 98 01/08/17 02:50 31 Intake and Output 01/07/17 01/07/17 01/08/17 15:00 23:00 07:00 Intake Total 200 ml 450 ml Output Total 750 ml Balance 200 ml -300 ml Results Result Diagram: 01/08/17 0501/08/17 05 Results 24 hrs Laboratory Tests Test 01/07/17 18:03 01/08/17 05:21 01/08/17 08:13 01/08/17 09:30 Bedside Glucose 90 93 White Blood Count 10.9 #H Red Blood Count 3.17 L Hemoglobin 9.1 L Hematocrit 27.9 L Mean Corpuscular Volume 88.0 Mean Corpuscular Hemoglobin 28.7 L Mean Corpuscular Hemoglobin Concent 32.6 Red Cell Distribution Width 18.1 H Platelet Count 127 L Mean Platelet Volume 10.9 H Neutrophils % 70.5 Lymphocytes % 14.7 L Monocytes % 11.9 H Eosinophils % 0.6 Basophils % 0.6 Nucleated Red Blood Cells % 0.0 Neutrophils # 7.7 H Lymphocytes # 1.6 Monocytes # 1.3 H Eosinophils # 0.1 Basophils # 0.1 Nucleated Red Blood Cells # 0.0 Sodium Level 134 L Potassium Level 3.8 Chloride Level 106 Carbon Dioxide Level 26 Anion Gap 6 L Blood Urea Nitrogen 10 Creatinine 0.99 Glucose Level 78 Calcium Level 8.2 L Phosphorus Level 3.0 Magnesium Level 1.8 Iron Level 73 Total Iron Binding Capacity 175 L Percent Iron Saturation 42 Vancomycin Level Trough 10.2 Test 01/08/17 12:17 Bedside Glucose 87 Medications Medications Current Medications Morphine Sulfate (morphine) 2 mg Q2H PRN IV FOR NON CARDIAC PAIN (4-10) Last administered on 01/07/17 21:40; Admin Dose 2 MG; Start 01/02/17 at 17:00 Clopidogrel Bisulfate (plaVIX) 75 mg DAILY PO Last administered on 01/08/17 09 :39; Admin Dose 75 MG; Start 01/03/17 at 09:00 Atorvastatin Calcium (Lipitor) 40 mg HS PO Last administered on 01/07/17 21:19 ; Admin Dose 40 MG; Start 01/02/17 at 21:00 Amitriptyline HCl (Elavil) 75 mg QHS PO Last administered on 01/07/17 21:18; Admin Dose 75 MG; Start 01/03/17 at 21:00 Leflunomide (Arava) 20 mg DAILY PO Last administered on 01/08/17 09:38; Admin Dose 20 MG; Start 01/03/17 at 10:00; Status Future hold Meclizine HCl (Antivert) 25 mg Q8H PRN PO DIZZINESS; Start 01/03/17 at 08:30 Phenazopyridine HCl (Pyridium) 200 mg TID PO Last administered on 01/08/17 12: 51; Admin Dose 200 MG; Start 01/03/17 at 10:00 Ranitidine HCl (Zantac) 300 mg HS PO Last administered on 01/07/17 21:20; Admin Dose 300 MG; Start 01/03/17 at 21:00 Zolpidem Tartrate (Ambien) 5 mg HS PRN PO INSOMNIA Last administered on 21:08; Admin Dose 5 MG; Start 01/03/17 at 23:00 Mupirocin (Bactroban) 1 applic BID TOP Last administered on 01/07/17 21:41; Admin Dose 1 APPLIC; Start 01/04/17 at 21:00 Hydromorphone HCl (Dilaudid) 0.2 mg Q15M PRN IV PAIN LEVEL 1-5 Last administered on 01/05/17 09:19; Admin Dose 0.2 MG; Start 01/04/17 at 20:00 Hydromorphone HCl (Dilaudid) 0.4 mg Q15M PRN IV PAIN LEVEL 6-10; Start at 20:00 Oxycodone/ Acetaminophen (Percocet (5/ 325)) 1 tab Q3H PRN PO PAIN LEVEL 1-5; Start 01/04/17 at 20:00 Ondansetron HCl (Zofran Inj) 4 mg Q6H PRN IV NAUSEA AND/OR VOMITING; Start 01/04/17 at 20:00 Famotidine (Pepcid Iv) 20 mg BID@08,20 IV Last administered on 01/08/17 09:38 ; Admin Dose 20 MG; Start 01/04/17 at 20:00 Aspirin (Aspirin) 325 mg DAILY PO Last administered on 01/08/17 09:48; Admin Dose 325 MG; Start 01/05/17 at 09:00 Acetaminophen 650 mg 650 mg Q3H PRN PO ELEVATED TEMPERATURE; Start 01/04/17 at 20:00 Magnesium Sulfate/ Dextrose 100 ml @ 100 mls/hr PRN PRN IVPB PENDING LAB VALUE ; Start 01/04/17 at 20:00 Vancomycin HCl 750 mg/Sodium Chloride 150 ml @ 100 mls/hr Q24H IVPB Last administered on 01/08/17 12:44; Admin Dose 100 MLS/HR; Start 01/06/17 at 10:00 ; Stop 01/08/17 at 20:00 Cefepime HCl (Maxipime 1gm/50 ml (Pmx)) 50 ml @ 100 mls/hr Q24H IVPB Last administered on 01/08/17 09:37; Admin Dose 100 MLS/HR; Start 01/07/17 at 08:00 Amiodarone HCl (Cordarone) 200 mg BID PO Last administered on 01/08/17 09:39; Admin Dose 200 MG; Start 01/07/17 at 09:00 Lisinopril (Zestril) 5 mg DAILY PO Last administered on 01/08/17 09:00; Admin Dose 5 MG; Start 01/07/17 at 09:00 Metoprolol Tartrate 50 mg 50 mg BID PO Last administered on 01/08/17 09:40; Admin Dose 50 MG; Start 01/07/17 at 21:00 Vancomycin HCl (Vancocin) 250 ml @ 125 mls/hr Q24H IVPB ; Start 01/09/17 at 11: 00 WEST LIAO NP Jan 08, 2017 15:08
[2017-01-08] MEDS: OXYCODONE/ACETAMINOPHEN (5/325) TAB PO PRN ×2 (15:54→21:01)
--- NOTE | 2017-01-08 17:14 | CONS ---
Date/Time of Note Date/Time of Note DATE: 01/08/17 TIME: 17:12 Assessment/Plan Assessment/Plan Chief Complaint/Hosp Course Acute diastolic heart failure: EF remains preserved post CABG. Likely from IVF. Euvolemic now Paroxysmal atrial fibrillation: common post cardiac surgery. Will control with amiodarone but plan will be short term for ~1 month CAD s/p CABG: emergent SHAW-LAD and SVG-RCA for proximal RCA dissection during cardiac cath NSTEMI s/p attempted PCI of RCA 01/02 and again 01/04 complicated by RCA dissection requiring emergent CABG VF arrest: in setting of RCA dissection. Cardiogenic shock: in setting of above. IABP removed. resolved Acute respiratory failure: Now extubated 01/05 HTN HL Chronic suprapubic catheter Bladder surgery Dysphagia UTI -metoprolol 25mg BID -amiodarone 200mg BID (may require another IV bolus if has recurrence) -spot dose lasix as needed -ASA, plavix (ok by Dr Gauthier) -lipitor -lisinopril 5mg daily -consider EGD Problems: Consultation Date/Type/Reason Admit Date/Time Jan 02, 2017 at 17:02 Type of Consultation: Cardiology Referring Provider: QING LI 24 HR Interval Summary Free Text/Dictation Had brief episode of afib with RVR last night. Now back in sinus. Exam/Review of Systems Vital Signs Vitals Vital Signs Date Time Temp Pulse Resp B/P Pulse Ox O2 Delivery O2 Flow Rate FiO2 01/08/17 16:27 77 01/08/17 16:09 99.7 18 141/68 92 01/08/17 15:17 3.0 01/08/17 14:46 Nasal Cannula 01/08/17 02:50 31 Intake and Output 01/07/17 01/07/17 01/08/17 15:00 23:00 07:00 Intake Total 200 ml 450 ml Output Total 750 ml Balance 200 ml -300 ml Exam Constitutional: alert, oriented Psych: nl mood/affect, no complaints Head: atraumatic, normocephalic Neck: No jvd Respiratory: diminished breath sounds, No clear to auscultation, No crackles/rales Cardiovascular: regular rate and rhythm, No edema, No systolic murmur Gastrointestinal: non-tender, soft Neurological: nl mental status, nl speech Results Result Diagram: 01/08/1752001/08/17 05 Results 24 hrs Laboratory Tests Test 01/07/17 18:03 01/08/17 05:21 01/08/17 08:13 01/08/17 09:30 Bedside Glucose 90 93 White Blood Count 10.9 #H Red Blood Count 3.17 L Hemoglobin 9.1 L Hematocrit 27.9 L Mean Corpuscular Volume 88.0 Mean Corpuscular Hemoglobin 28.7 L Mean Corpuscular Hemoglobin Concent 32.6 Red Cell Distribution Width 18.1 H Platelet Count 127 L Mean Platelet Volume 10.9 H Neutrophils % 70.5 Lymphocytes % 14.7 L Monocytes % 11.9 H Eosinophils % 0.6 Basophils % 0.6 Nucleated Red Blood Cells % 0.0 Neutrophils # 7.7 H Lymphocytes # 1.6 Monocytes # 1.3 H Eosinophils # 0.1 Basophils # 0.1 Nucleated Red Blood Cells # 0.0 Sodium Level 134 L Potassium Level 3.8 Chloride Level 106 Carbon Dioxide Level 26 Anion Gap 6 L Blood Urea Nitrogen 10 Creatinine 0.99 Glucose Level 78 Calcium Level 8.2 L Phosphorus Level 3.0 Magnesium Level 1.8 Iron Level 73 Total Iron Binding Capacity 175 L Percent Iron Saturation 42 Vancomycin Level Trough 10.2 Test 01/08/17 12:17 Bedside Glucose 87 Medications Medications Current Medications Morphine Sulfate (morphine) 2 mg Q2H PRN IV FOR NON CARDIAC PAIN (4-10) Last administered on 01/07/17 21:40; Admin Dose 2 MG; Start 01/02/17 at 17:00 Clopidogrel Bisulfate (plaVIX) 75 mg DAILY PO Last administered on 01/08/17 09 :39; Admin Dose 75 MG; Start 01/03/17 at 09:00 Atorvastatin Calcium (Lipitor) 40 mg HS PO Last administered on 01/07/17 21:19 ; Admin Dose 40 MG; Start 01/02/17 at 21:00 Amitriptyline HCl (Elavil) 75 mg QHS PO Last administered on 01/07/17 21:18; Admin Dose 75 MG; Start 01/03/17 at 21:00 Leflunomide (Arava) 20 mg DAILY PO Last administered on 01/08/17 09:38; Admin Dose 20 MG; Start 01/03/17 at 10:00; Status Future hold Meclizine HCl (Antivert) 25 mg Q8H PRN PO DIZZINESS; Start 01/03/17 at 08:30 Phenazopyridine HCl (Pyridium) 200 mg TID PO Last administered on 01/08/17 12: 51; Admin Dose 200 MG; Start 01/03/17 at 10:00 Ranitidine HCl (Zantac) 300 mg HS PO Last administered on 01/07/17 21:20; Admin Dose 300 MG; Start 01/03/17 at 21:00 Zolpidem Tartrate (Ambien) 5 mg HS PRN PO INSOMNIA Last administered on 21:08; Admin Dose 5 MG; Start 01/03/17 at 23:00 Mupirocin (Bactroban) 1 applic BID TOP Last administered on 01/07/17 21:41; Admin Dose 1 APPLIC; Start 01/04/17 at 21:00 Hydromorphone HCl (Dilaudid) 0.2 mg Q15M PRN IV PAIN LEVEL 1-5 Last administered on 01/05/17 09:19; Admin Dose 0.2 MG; Start 01/04/17 at 20:00 Hydromorphone HCl (Dilaudid) 0.4 mg Q15M PRN IV PAIN LEVEL 6-10; Start at 20:00 Oxycodone/ Acetaminophen (Percocet (5/ 325)) 1 tab Q3H PRN PO PAIN LEVEL 1-5 Last administered on 01/08/17 15:54; Admin Dose 1 TAB; Start 01/04/17 at 20:00 Ondansetron HCl (Zofran Inj) 4 mg Q6H PRN IV NAUSEA AND/OR VOMITING; Start 01/04/17 at 20:00 Famotidine (Pepcid Iv) 20 mg BID@08,20 IV Last administered on 01/08/17 09:38 ; Admin Dose 20 MG; Start 01/04/17 at 20:00 Aspirin (Aspirin) 325 mg DAILY PO Last administered on 01/08/17 09:48; Admin Dose 325 MG; Start 01/05/17 at 09:00 Acetaminophen 650 mg 650 mg Q3H PRN PO ELEVATED TEMPERATURE; Start 01/04/17 at 20:00 Magnesium Sulfate/ Dextrose 100 ml @ 100 mls/hr PRN PRN IVPB PENDING LAB VALUE ; Start 01/04/17 at 20:00 Cefepime HCl (Maxipime 1gm/50 ml (Pmx)) 50 ml @ 100 mls/hr Q24H IVPB Last administered on 01/08/17 09:37; Admin Dose 100 MLS/HR; Start 01/07/17 at 08:00 Amiodarone HCl (Cordarone) 200 mg BID PO Last administered on 01/08/17 09:39; Admin Dose 200 MG; Start 01/07/17 at 09:00 Lisinopril (Zestril) 5 mg DAILY PO Last administered on 01/08/17 09:00; Admin Dose 5 MG; Start 01/07/17 at 09:00 Metoprolol Tartrate (Lopressor) 50 mg BID PO Last administered on 01/08/17 09: 40; Admin Dose 50 MG; Start 01/07/17 at 21:00 QING LI Jan 08, 2017 17:14
--- NOTE | 2017-01-08 17:24 | CONS ---
Date/Time of Note Date/Time of Note DATE: 01/08/17 TIME: 17:22 Assessment/Plan Assessment/Plan Additional Assessment/Plan Additional Assessment/Plan IMPRESSION: 1. Normochromic normocytic anemia. 2. Dysphagia. Persistent 3. Coronary artery disease, non-ST elevation myocardial infarction. 4. Hypertension. 5. Dyslipidemia. 6. Urinary tract infection. 7. Status post emergency coronary artery bypass graft Plan Continue postop care Discussed with the staff for aspiration precaution. patient will need EGD once stable and cleared from cardiac standpoint Consultation Date/Type/Reason Admit Date/Time Jan 02, 2017 at 17:02 Initial Consult Date 01/04/17 Type of Consultation: Cardiology Referring Provider: QING LI 24 HR Interval Summary Free Text/Dictation Patient does complain of dysphagia she finds it difficult to swallow solid food Her p.o. intake is poor Exam/Review of Systems Vital Signs Vitals Vital Signs Date Time Temp Pulse Resp B/P Pulse Ox O2 Delivery O2 Flow Rate FiO2 01/08/17 16:27 77 01/08/17 16:09 99.7 18 141/68 92 01/08/17 15:17 3.0 01/08/17 14:46 Nasal Cannula 01/08/17 02:50 31 Intake and Output 01/07/17 01/07/17 01/08/17 15:00 23:00 07:00 Intake Total 200 ml 450 ml Output Total 750 ml Balance 200 ml -300 ml Exam Constitutional: alert, oriented, well developed Psych: nl mood/affect, no complaints Head: atraumatic, normocephalic Eyes: EOMI, PERRL, nl conjunctiva, nl lids, nl sclera ENMT: nl external ears & nose, nl lips & teeth, nl nasal mucosa & septum Neck: non-tender, supple Respiratory: clear to auscultation, normal air movement Cardiovascular: nl pulses, regular rate and rhythm Gastrointestinal: nl liver, spleen, non-tender, soft Musculoskeletal: nl extremities to inspection, nl gait and stance Extremities: normal pulses 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, nl mental status, nl speech, nl strength Skin: nl turgor, No rash or lesions Lymph: nl lymph nodes Results Result Diagram: 01/08/17 0521 01/08/17 05 Results 24 hrs Laboratory Tests Test 01/07/17 18:03 01/08/17 05:21 01/08/17 08:13 01/08/17 09:30 Bedside Glucose 90 93 White Blood Count 10.9 #H Red Blood Count 3.17 L Hemoglobin 9.1 L Hematocrit 27.9 L Mean Corpuscular Volume 88.0 Mean Corpuscular Hemoglobin 28.7 L Mean Corpuscular Hemoglobin Concent 32.6 Red Cell Distribution Width 18.1 H Platelet Count 127 L Mean Platelet Volume 10.9 H Neutrophils % 70.5 Lymphocytes % 14.7 L Monocytes % 11.9 H Eosinophils % 0.6 Basophils % 0.6 Nucleated Red Blood Cells % 0.0 Neutrophils # 7.7 H Lymphocytes # 1.6 Monocytes # 1.3 H Eosinophils # 0.1 Basophils # 0.1 Nucleated Red Blood Cells # 0.0 Sodium Level 134 L Potassium Level 3.8 Chloride Level 106 Carbon Dioxide Level 26 Anion Gap 6 L Blood Urea Nitrogen 10 Creatinine 0.99 Glucose Level 78 Calcium Level 8.2 L Phosphorus Level 3.0 Magnesium Level 1.8 Iron Level 73 Total Iron Binding Capacity 175 L Percent Iron Saturation 42 Vancomycin Level Trough 10.2 Test 01/08/17 12:17 01/08/17 17:14 Bedside Glucose 87 95 Medications Medications Current Medications Morphine Sulfate (morphine) 2 mg Q2H PRN IV FOR NON CARDIAC PAIN (4-10) Last administered on 01/07/17 21:40; Admin Dose 2 MG; Start 01/02/17 at 17:00 Clopidogrel Bisulfate (plaVIX) 75 mg DAILY PO Last administered on 01/08/17 09 :39; Admin Dose 75 MG; Start 01/03/17 at 09:00 Atorvastatin Calcium (Lipitor) 40 mg HS PO Last administered on 01/07/17 21:19 ; Admin Dose 40 MG; Start 01/02/17 at 21:00 Amitriptyline HCl (Elavil) 75 mg QHS PO Last administered on 01/07/17 21:18; Admin Dose 75 MG; Start 01/03/17 at 21:00 Leflunomide (Arava) 20 mg DAILY PO Last administered on 01/08/17 09:38; Admin Dose 20 MG; Start 01/03/17 at 10:00; Status Future hold Meclizine HCl (Antivert) 25 mg Q8H PRN PO DIZZINESS; Start 01/03/17 at 08:30 Phenazopyridine HCl (Pyridium) 200 mg TID PO Last administered on 01/08/17 12: 51; Admin Dose 200 MG; Start 01/03/17 at 10:00 Ranitidine HCl (Zantac) 300 mg HS PO Last administered on 01/07/17 21:20; Admin Dose 300 MG; Start 01/03/17 at 21:00 Zolpidem Tartrate (Ambien) 5 mg HS PRN PO INSOMNIA Last administered on 21:08; Admin Dose 5 MG; Start 01/03/17 at 23:00 Mupirocin (Bactroban) 1 applic BID TOP Last administered on 01/07/17 21:41; Admin Dose 1 APPLIC; Start 01/04/17 at 21:00 Hydromorphone HCl (Dilaudid) 0.2 mg Q15M PRN IV PAIN LEVEL 1-5 Last administered on 01/05/17 09:19; Admin Dose 0.2 MG; Start 01/04/17 at 20:00 Hydromorphone HCl (Dilaudid) 0.4 mg Q15M PRN IV PAIN LEVEL 6-10; Start at 20:00 Oxycodone/ Acetaminophen (Percocet (5/ 325)) 1 tab Q3H PRN PO PAIN LEVEL 1-5 Last administered on 01/08/17 15:54; Admin Dose 1 TAB; Start 01/04/17 at 20:00 Ondansetron HCl (Zofran Inj) 4 mg Q6H PRN IV NAUSEA AND/OR VOMITING; Start 01/04/17 at 20:00 Famotidine (Pepcid Iv) 20 mg BID@08,20 IV Last administered on 01/08/17 09:38 ; Admin Dose 20 MG; Start 01/04/17 at 20:00 Aspirin (Aspirin) 325 mg DAILY PO Last administered on 01/08/17 09:48; Admin Dose 325 MG; Start 01/05/17 at 09:00 Acetaminophen 650 mg 650 mg Q3H PRN PO ELEVATED TEMPERATURE; Start 01/04/17 at 20:00 Magnesium Sulfate/ Dextrose 100 ml @ 100 mls/hr PRN PRN IVPB PENDING LAB VALUE ; Start 01/04/17 at 20:00 Cefepime HCl (Maxipime 1gm/50 ml (Pmx)) 50 ml @ 100 mls/hr Q24H IVPB Last administered on 01/08/17 09:37; Admin Dose 100 MLS/HR; Start 01/07/17 at 08:00 Amiodarone HCl (Cordarone) 200 mg BID PO Last administered on 01/08/17 09:39; Admin Dose 200 MG; Start 01/07/17 at 09:00 Lisinopril (Zestril) 5 mg DAILY PO Last administered on 01/08/17 09:00; Admin Dose 5 MG; Start 01/07/17 at 09:00 Metoprolol Tartrate (Lopressor) 50 mg BID PO Last administered on 01/08/17 09: 40; Admin Dose 50 MG; Start 01/07/17 at 21:00 EVY SAUCEDA MD Jan 08, 2017 17:23
--- NOTE | 2017-01-08 17:27 | CONS ---
Date/Time of Note Date/Time of Note DATE: 01/08/17 TIME: 17:25 Consult Date/Type/Reason Admit Date/Time Jan 02, 2017 at 17:02 Initial Consult Date 01/05/17 Type of Consultation: Pulm Ordering Provider: QING LI Subjective no events. feels better. no dyspnea Objective Vital Signs Date Time Temp Pulse Resp B/P Pulse Ox O2 Delivery O2 Flow Rate FiO2 01/08/17 16:27 77 01/08/17 16:09 99.7 18 141/68 92 01/08/17 15:17 3.0 01/08/17 14:46 Nasal Cannula 01/08/17 02:50 31 Intake and Output 01/07/17 01/07/17 01/08/17 15:00 23:00 07:00 Intake Total 200 ml 450 ml Output Total 750 ml Balance 200 ml -300 ml Exam NECK: Supple. No JVD or lymphadenopathy. CARDIAC EXAM: S1, S2. No added sounds or murmurs. CHEST: clear bilaterally, No added sounds, rales or wheezes ABDOMEN: Soft, nontender. No guarding or rebound. EXTREMITIES: No cyanosis, clubbing or edema. Results/Medications Result Diagram: 01/08/1752001/08/17520 Results 24 hrs Laboratory Tests Test 01/07/17 18:03 01/08/17 05:21 01/08/17 08:13 01/08/17 09:30 Bedside Glucose 90 93 White Blood Count 10.9 #H Red Blood Count 3.17 L Hemoglobin 9.1 L Hematocrit 27.9 L Mean Corpuscular Volume 88.0 Mean Corpuscular Hemoglobin 28.7 L Mean Corpuscular Hemoglobin Concent 32.6 Red Cell Distribution Width 18.1 H Platelet Count 127 L Mean Platelet Volume 10.9 H Neutrophils % 70.5 Lymphocytes % 14.7 L Monocytes % 11.9 H Eosinophils % 0.6 Basophils % 0.6 Nucleated Red Blood Cells % 0.0 Neutrophils # 7.7 H Lymphocytes # 1.6 Monocytes # 1.3 H Eosinophils # 0.1 Basophils # 0.1 Nucleated Red Blood Cells # 0.0 Sodium Level 134 L Potassium Level 3.8 Chloride Level 106 Carbon Dioxide Level 26 Anion Gap 6 L Blood Urea Nitrogen 10 Creatinine 0.99 Glucose Level 78 Calcium Level 8.2 L Phosphorus Level 3.0 Magnesium Level 1.8 Iron Level 73 Total Iron Binding Capacity 175 L Percent Iron Saturation 42 Vancomycin Level Trough 10.2 Test 01/08/17 12:17 01/08/17 17:14 Bedside Glucose 87 95 Medications Current Medications Morphine Sulfate (morphine) 2 mg Q2H PRN IV FOR NON CARDIAC PAIN (4-10) Last administered on 01/07/17 21:40; Admin Dose 2 MG; Start 01/02/17 at 17:00 Clopidogrel Bisulfate (plaVIX) 75 mg DAILY PO Last administered on 01/08/17 09 :39; Admin Dose 75 MG; Start 01/03/17 at 09:00 Atorvastatin Calcium (Lipitor) 40 mg HS PO Last administered on 01/07/17 21:19 ; Admin Dose 40 MG; Start 01/02/17 at 21:00 Amitriptyline HCl (Elavil) 75 mg QHS PO Last administered on 01/07/17 21:18; Admin Dose 75 MG; Start 01/03/17 at 21:00 Leflunomide (Arava) 20 mg DAILY PO Last administered on 01/08/17 09:38; Admin Dose 20 MG; Start 01/03/17 at 10:00; Status Future hold Meclizine HCl (Antivert) 25 mg Q8H PRN PO DIZZINESS; Start 01/03/17 at 08:30 Phenazopyridine HCl (Pyridium) 200 mg TID PO Last administered on 01/08/17 12: 51; Admin Dose 200 MG; Start 01/03/17 at 10:00 Ranitidine HCl (Zantac) 300 mg HS PO Last administered on 01/07/17 21:20; Admin Dose 300 MG; Start 01/03/17 at 21:00 Zolpidem Tartrate (Ambien) 5 mg HS PRN PO INSOMNIA Last administered on 21:08; Admin Dose 5 MG; Start 01/03/17 at 23:00 Mupirocin (Bactroban) 1 applic BID TOP Last administered on 01/07/17 21:41; Admin Dose 1 APPLIC; Start 01/04/17 at 21:00 Hydromorphone HCl (Dilaudid) 0.2 mg Q15M PRN IV PAIN LEVEL 1-5 Last administered on 01/05/17 09:19; Admin Dose 0.2 MG; Start 01/04/17 at 20:00 Hydromorphone HCl (Dilaudid) 0.4 mg Q15M PRN IV PAIN LEVEL 6-10; Start at 20:00 Oxycodone/ Acetaminophen (Percocet (5/ 325)) 1 tab Q3H PRN PO PAIN LEVEL 1-5 Last administered on 01/08/17 15:54; Admin Dose 1 TAB; Start 01/04/17 at 20:00 Ondansetron HCl (Zofran Inj) 4 mg Q6H PRN IV NAUSEA AND/OR VOMITING; Start 01/04/17 at 20:00 Famotidine (Pepcid Iv) 20 mg BID@08,20 IV Last administered on 01/08/17 09:38 ; Admin Dose 20 MG; Start 01/04/17 at 20:00 Aspirin (Aspirin) 325 mg DAILY PO Last administered on 01/08/17 09:48; Admin Dose 325 MG; Start 01/05/17 at 09:00 Acetaminophen 650 mg 650 mg Q3H PRN PO ELEVATED TEMPERATURE; Start 01/04/17 at 20:00 Magnesium Sulfate/ Dextrose 100 ml @ 100 mls/hr PRN PRN IVPB PENDING LAB VALUE ; Start 01/04/17 at 20:00 Cefepime HCl (Maxipime 1gm/50 ml (Pmx)) 50 ml @ 100 mls/hr Q24H IVPB Last administered on 01/08/17 09:37; Admin Dose 100 MLS/HR; Start 01/07/17 at 08:00 Amiodarone HCl (Cordarone) 200 mg BID PO Last administered on 01/08/17 09:39; Admin Dose 200 MG; Start 01/07/17 at 09:00 Lisinopril (Zestril) 5 mg DAILY PO Last administered on 01/08/17 09:00; Admin Dose 5 MG; Start 01/07/17 at 09:00 Metoprolol Tartrate (Lopressor) 50 mg BID PO Last administered on 01/08/17 09: 40; Admin Dose 50 MG; Start 01/07/17 at 21:00 Assessment/Plan Additional Assessment/Plan IMP: 1. Patient admitted with non-STEMI , underwent coronary angiography then required emergent CABG. 2. Status post CPR lasting 10 minutes with revival of vital signs. Patient currently is hemodynamically stable, off pressor support. Amiodarone drip 3. Leukocytosis. Etiology is unclear possibly early aspiration. Patient currently on appropriate antibiotic regimen. 4. Anemia. 5. History of chronic urinary retention, with placement of Jang catheter on a chronic basis. 6. Respiratory failure now extubated RECS: 1. Incentive spirometry 2. Continue rate control 3. De-escalate abx 4. Mobilize OALTAGRACIA OSORIO MD Jan 08, 2017 17:27
[2017-01-08] MEDS: RANITIDINE 150 MG TAB PO SCH (21:00)
[2017-01-08] MEDS: ATORVASTATIN 40 MG TAB PO SCH (21:01)
[2017-01-08] MEDS: AMITRIPTYLINE 25 MG TAB PO SCH (21:02)
[2017-01-08] MEDS: ZOLPIDEM 5 MG TAB PO PRN (21:02)
[2017-01-09] VITALS (12 sets, daily range): BP systolic 100–143; BP diastolic 54–74; PULSE 65–73; RESP 17–20
--- NOTE | 2017-01-09 03:56 | PN ---
DATE: 01/07/2017 INFECTIOUS DISEASE PROGRESS NOTE SUBJECTIVE: Patient is very weak, but opens eyes and follows commands. She is in no distress. Delia st tubes were discontinued. No fevers. Temperature 98.2, pulse 76, respirations 16, blood pressure 168/80, saturation 95% on nasal cannula. WBC 13.9, H and H 8.3 and 24.7, platelets 111, neutrophil s 74.7, BUN 10, creatinine 1.14. MICROBIOLOGY: Urine culture sent yesterday growing Pseudomonas aeruginosa, susceptible to gentamici n, amikacin, cefepime, Zosyn and tobramycin. DIAGNOSTICS: Chest x-ray this morning revealed improved appearance of the lungs. INDWELLINGS: Right IJ introducer, Jang catheter. ANTIMICROBIALS: The patient is on: 1. Vancomycin. 2. Cefepime. PHYSICAL EXAMINATION: GENERAL: This is a well-developed, fragile, elderly woman who is in no distress. HEENT: Head atraumatic, normocephalic. Sclerae anicteric. Buccal mucosa dry. NECK: Supple, trachea midline. CHEST: Rise symmetrical. Breath sounds diminished to bases. HEART: S1, S2. ABDOMEN: Soft, bowel tones present. EXTREMITIES: Without cyanosis. ASSESSMENT: 1. Status post cardiopulmonary arrest, emergent CABG on 01/04/2017. 2. Recurrent urinary tract infection. 3. Diabetes. 4. Status post respiratory failure, possibly aspirated. 5. Methicillin-resistant Staphylococcus aureus nares colonization. 6. Chronic suprapubic catheter. PLAN: The patient remains stable, on appropriate antimicrobials. Continue present care. Follow re commendations of consultants. Dictated By: [employer] WORK[employer] for [employer]RONALD Conf#: [id number] DID#: [id number] CC: QING LI MD;*EndCC*
[2017-01-09] MEDS: ACCU-CHEK XX SCH ×4 (07:46→21:00)
[2017-01-09] MEDS: LISINOPRIL 5 MG TAB PO SCH (09:13)
[2017-01-09] MEDS: CLOPIDOGREL 75 MG TAB PO SCH (09:13)
[2017-01-09] MEDS: METOPROLOL 25 MG TAB PO SCH ×2 (09:14→21:45)
[2017-01-09] MEDS: AMIODARONE 200 MG TAB PO SCH ×2 (09:14→21:46)
[2017-01-09] MEDS: PHENAZOPYRIDINE 200 MG TAB PO SCH ×3 (09:15→21:44)
[2017-01-09] MEDS: FAMOTIDINE 20 MG INJ IV SCH (09:15)
[2017-01-09] MEDS: ASPIRIN 325 MG TAB PO SCH (09:15)
[2017-01-09] MEDS: CEFEPIME 1GM/50 ML (PMX) 50 ML IVPB SCH (09:16)
[2017-01-09] MEDS: LEFLUNOMIDE 10 MG TAB PO SCH (09:16)
[2017-01-09] MEDS: MUPIROCIN 2% 22 GM OINT TOP SCH ×2 (09:17→21:47)
[2017-01-09] MEDS: OXYCODONE/ACETAMINOPHEN (5/325) TAB PO PRN (11:00)
[2017-01-09] MEDS ORDERED: VANCOMYCIN 1 GM in NS 250 ML IVPB SCH (11:00)
[2017-01-09] MEDS ORDERED: VITAMIN A & D 5 GM OINT PACKET TOP ONE (12:36)
[2017-01-09] MEDS: morphine 2 MG INJ IV PRN (12:38)
--- NOTE | 2017-01-09 13:08 | CONS ---
Date/Time of Note Date/Time of Note DATE: 01/09/17 TIME: 13:06 Assessment/Plan Assessment/Plan Chief Complaint/Hosp Course Acute diastolic heart failure: EF remains preserved post CABG. Likely from IVF. Euvolemic now Paroxysmal atrial fibrillation: common post cardiac surgery. Will control with amiodarone but plan will be short term for ~1 month CAD s/p CABG: emergent SHAW-LAD and SVG-RCA for proximal RCA dissection during cardiac cath NSTEMI s/p attempted PCI of RCA 01/02 and again 01/04 complicated by RCA dissection requiring emergent CABG VF arrest: in setting of RCA dissection. Cardiogenic shock: in setting of above. IABP removed. resolved Acute respiratory failure: Now extubated 01/05 HTN HL Chronic suprapubic catheter Bladder surgery Dysphagia UTI -ok to proceed with EGD from cardiac standpoint as stable cardiovascular issues metoprolol 25mg BID -amiodarone 200mg BID -spot dose lasix as needed -ASA, plavix -lipitor -lisinopril 5mg daily Problems: Consultation Date/Type/Reason Admit Date/Time Jan 02, 2017 at 17:02 Type of Consultation: Cardiology Referring Provider: QING LI 24 HR Interval Summary Free Text/Dictation No o/n events. Doing well. Tolerating purees,. Has not tried solids Exam/Review of Systems Vital Signs Vitals Vital Signs Date Time Temp Pulse Resp B/P Pulse Ox O2 Delivery O2 Flow Rate FiO2 01/09/17 12:27 69 01/09/17 11:20 97.4 18 143/65 97 01/09/17 08:30 Nasal Cannula 3.0 01/09/17 05:59 31 Intake and Output 01/08/17 01/08/17 01/09/17 15:00 23:00 07:00 Intake Total 50 ml 800 ml 300 ml Output Total 350 ml 280 ml Balance 50 ml 450 ml 20 ml Exam Constitutional: alert, oriented Psych: nl mood/affect, no complaints Head: atraumatic, normocephalic Neck: supple, No jvd Respiratory: clear to auscultation, No crackles/rales Cardiovascular: regular rate and rhythm, No edema, No systolic murmur Gastrointestinal: non-tender, soft, No distended Neurological: nl mental status, nl speech Skin: No rash or lesions Results Result Diagram: 01/08/17 0521 01/08/1721 Results 24 hrs Laboratory Tests Test 01/08/17 17:14 01/08/17 21:13 01/09/17 09:08 01/09/17 12:31 Bedside Glucose 95 107 91 108 Medications Medications Current Medications Morphine Sulfate (morphine) 2 mg Q2H PRN IV FOR NON CARDIAC PAIN (4-10) Last administered on 01/09/17 12:38; Admin Dose 2 MG; Start 01/02/17 at 17:00 Clopidogrel Bisulfate (plaVIX) 75 mg DAILY PO Last administered on 01/09/17 09 :13; Admin Dose 75 MG; Start 01/03/17 at 09:00 Atorvastatin Calcium (Lipitor) 40 mg HS PO Last administered on 01/08/17 21:01 ; Admin Dose 40 MG; Start 01/02/17 at 21:00 Amitriptyline HCl (Elavil) 75 mg QHS PO Last administered on 01/08/17 21:02; Admin Dose 75 MG; Start 01/03/17 at 21:00 Leflunomide (Arava) 20 mg DAILY PO Last administered on 01/09/17 09:16; Admin Dose 20 MG; Start 01/03/17 at 10:00; Status Future hold Meclizine HCl (Antivert) 25 mg Q8H PRN PO DIZZINESS; Start 01/03/17 at 08:30 Phenazopyridine HCl (Pyridium) 200 mg TID PO Last administered on 01/09/17 12: 32; Admin Dose 200 MG; Start 01/03/17 at 10:00 Ranitidine HCl (Zantac) 300 mg HS PO Last administered on 01/08/17 21:00; Admin Dose 300 MG; Start 01/03/17 at 21:00 Zolpidem Tartrate (Ambien) 5 mg HS PRN PO INSOMNIA Last administered on 21:02; Admin Dose 5 MG; Start 01/03/17 at 23:00 Mupirocin (Bactroban) 1 applic BID TOP Last administered on 01/09/17 09:17; Admin Dose 1 APPLIC; Start 01/04/17 at 21:00 Hydromorphone HCl (Dilaudid) 0.2 mg Q15M PRN IV PAIN LEVEL 1-5 Last administered on 01/05/17 09:19; Admin Dose 0.2 MG; Start 01/04/17 at 20:00 Hydromorphone HCl (Dilaudid) 0.4 mg Q15M PRN IV PAIN LEVEL 6-10; Start at 20:00 Oxycodone/ Acetaminophen (Percocet (5/ 325)) 1 tab Q3H PRN PO PAIN LEVEL 1-5 Last administered on 01/09/17 11:00; Admin Dose 1 TAB; Start 01/04/17 at 20:00 Ondansetron HCl (Zofran Inj) 4 mg Q6H PRN IV NAUSEA AND/OR VOMITING; Start 01/04/17 at 20:00 Famotidine (Pepcid Iv) 20 mg BID@08,20 IV Last administered on 01/09/17 09:15 ; Admin Dose 20 MG; Start 01/04/17 at 20:00 Aspirin (Aspirin) 325 mg DAILY PO Last administered on 01/09/17 09:15; Admin Dose 325 MG; Start 01/05/17 at 09:00 Acetaminophen 650 mg 650 mg Q3H PRN PO ELEVATED TEMPERATURE; Start 01/04/17 at 20:00 Magnesium Sulfate/ Dextrose 100 ml @ 100 mls/hr PRN PRN IVPB PENDING LAB VALUE ; Start 01/04/17 at 20:00 Cefepime HCl (Maxipime 1gm/50 ml (Pmx)) 50 ml @ 100 mls/hr Q24H IVPB Last administered on 01/09/17 09:16; Admin Dose 100 MLS/HR; Start 01/07/17 at 08:00 Amiodarone HCl (Cordarone) 200 mg BID PO Last administered on 01/09/17 09:14; Admin Dose 200 MG; Start 01/07/17 at 09:00 Lisinopril (Zestril) 5 mg DAILY PO Last administered on 01/09/17 09:13; Admin Dose 5 MG; Start 01/07/17 at 09:00 Metoprolol Tartrate (Lopressor) 50 mg BID PO Last administered on 01/09/17 09: 14; Admin Dose 50 MG; Start 01/07/17 at 21:00 QING LI Jan 09, 2017 13:08
--- NOTE | 2017-01-09 14:06 | PN ---
Date/Time of Note Date/Time of Note DATE: 01/09/17 TIME: 14:05 Assessment/Plan Lines/Catheters IV Catheter Type (from [facility]): Saline Lock Jang in Place (from [facility]): No (Suprapubic) Assessment/Plan Chief Complaint/Hosp Course doing well WBC 10, hct 27 increase activity ok to snf from surgery standpoint Problems: Exam/Review of Systems Vital Signs Vitals Vital Signs Date Time Temp Pulse Resp B/P Pulse Ox O2 Delivery O2 Flow Rate FiO2 01/09/17 13:53 3.0 32 01/09/17 12:30 Nasal Cannula 01/09/17 12:27 69 01/09/17 11:20 97.4 18 143/65 97 Intake and Output 01/08/17 01/08/17 01/09/17 15:00 23:00 07:00 Intake Total 50 ml 800 ml 300 ml Output Total 350 ml 280 ml Balance 50 ml 450 ml 20 ml Results Result Diagram: 01/08/17 0521 01/08/17 0521 JOANN HEWITT MD Jan 09, 2017 14:05
--- NOTE | 2017-01-09 14:19 | CONS ---
Date/Time of Note Date/Time of Note DATE: 01/09/17 TIME: 14:16 Assessment/Plan Assessment/Plan Additional Assessment/Plan Assessment and recommendations; 1. Patient admitted with non-STEMI underwent emergent CABG. Status post respiratory failure doing very well overall. 2. Mild anemia and thrombocytopenia. 3. History of chronic urinary retention. 4. History of hypertension. 5. Possibly some element of aspiration pneumonia. Continue current treatment. Will obtain follow-up chest x-ray. Consultation Date/Type/Reason Admit Date/Time Jan 02, 2017 at 17:02 Initial Consult Date 01/05/17 Type of Consultation: Pulmonary Referring Provider: QING LI 24 HR Interval Summary Free Text/Dictation Patient condition is stable. Denies any shortness of breath. Any chest pain. General exam; elderly woman, awake and alert. Currently in no distress. Exam/Review of Systems Vital Signs Vitals Vital Signs Date Time Temp Pulse Resp B/P Pulse Ox O2 Delivery O2 Flow Rate FiO2 01/09/17 13:53 3.0 32 01/09/17 12:30 Nasal Cannula 01/09/17 12:27 69 01/09/17 11:20 97.4 18 143/65 97 Intake and Output 01/08/17 01/08/17 01/09/17 15:00 23:00 07:00 Intake Total 50 ml 800 ml 300 ml Output Total 350 ml 280 ml Balance 50 ml 450 ml 20 ml Exam HEENT exam; supple neck, no JVD. No lymphadenopathy. Midline trachea. No thyromegaly. Pupils are small bilaterally. Patient has multiple carious teeth. Chest exam; clear to auscultation. S1-S2 audible, no murmurs. Regular rhythm. There is a well-healed sternal scar. Abdomen exam; soft, nontender. No organomegaly. Bowel sounds were reviewed Extremity exam; no peripheral edema. [employer]ER exam; no focal deficit. Results Result Diagram: 01/08/1721 01/08/17520 Results 24 hrs Laboratory Tests Test 01/08/17 17:14 01/08/17 21:13 01/09/17 09:08 01/09/17 12:31 Bedside Glucose 95 107 91 108 Medications Medications Current Medications Morphine Sulfate (morphine) 2 mg Q2H PRN IV FOR NON CARDIAC PAIN (4-10) Last administered on 01/09/17t 12:38; Admin Dose 2 MG; Start 01/02/17 at 17:00 Clopidogrel Bisulfate (plaVIX) 75 mg DAILY PO Last administered on 01/09/17 09 :13; Admin Dose 75 MG; Start 01/03/17 at 09:00 Atorvastatin Calcium (Lipitor) 40 mg HS PO Last administered on 01/08/17 21:01 ; Admin Dose 40 MG; Start 01/02/17 at 21:00 Amitriptyline HCl (Elavil) 75 mg QHS PO Last administered on 01/08/17 21:02; Admin Dose 75 MG; Start 01/03/17 at 21:00 Leflunomide (Arava) 20 mg DAILY PO Last administered on 01/09/17 09:16; Admin Dose 20 MG; Start 01/03/17 at 10:00; Status Future hold Meclizine HCl (Antivert) 25 mg Q8H PRN PO DIZZINESS; Start 01/03/17 at 08:30 Phenazopyridine HCl (Pyridium) 200 mg TID PO Last administered on 01/09/17 12: 32; Admin Dose 200 MG; Start 01/03/17 at 10:00 Ranitidine HCl (Zantac) 300 mg HS PO Last administered on 01/08/17 21:00; Admin Dose 300 MG; Start 01/03/17 at 21:00 Zolpidem Tartrate (Ambien) 5 mg HS PRN PO INSOMNIA Last administered on 21:02; Admin Dose 5 MG; Start 01/03/17 at 23:00 Mupirocin (Bactroban) 1 applic BID TOP Last administered on 01/09/17 09:17; Admin Dose 1 APPLIC; Start 01/04/17 at 21:00 Hydromorphone HCl (Dilaudid) 0.2 mg Q15M PRN IV PAIN LEVEL 1-5 Last administered on 01/05/17 09:19; Admin Dose 0.2 MG; Start 01/04/17 at 20:00 Hydromorphone HCl (Dilaudid) 0.4 mg Q15M PRN IV PAIN LEVEL 6-10; Start at 20:00 Oxycodone/ Acetaminophen (Percocet (5/ 325)) 1 tab Q3H PRN PO PAIN LEVEL 1-5 Last administered on 01/09/17 11:00; Admin Dose 1 TAB; Start 01/04/17 at 20:00 Ondansetron HCl (Zofran Inj) 4 mg Q6H PRN IV NAUSEA AND/OR VOMITING; Start 01/04/17 at 20:00 Famotidine (Pepcid Iv) 20 mg BID@08,20 IV Last administered on 01/09/17 09:15 ; Admin Dose 20 MG; Start 01/04/17 at 20:00 Aspirin (Aspirin) 325 mg DAILY PO Last administered on 01/09/17 09:15; Admin Dose 325 MG; Start 01/05/17 at 09:00 Acetaminophen 650 mg 650 mg Q3H PRN PO ELEVATED TEMPERATURE; Start 01/04/17 at 20:00 Magnesium Sulfate/ Dextrose 100 ml @ 100 mls/hr PRN PRN IVPB PENDING LAB VALUE ; Start 01/04/17 at 20:00 Cefepime HCl (Maxipime 1gm/50 ml (Pmx)) 50 ml @ 100 mls/hr Q24H IVPB Last administered on 01/09/17 09:16; Admin Dose 100 MLS/HR; Start 01/07/17 at 08:00 Amiodarone HCl (Cordarone) 200 mg BID PO Last administered on 01/09/17 09:14; Admin Dose 200 MG; Start 01/07/17 at 09:00 Lisinopril (Zestril) 5 mg DAILY PO Last administered on 01/09/17 09:13; Admin Dose 5 MG; Start 01/07/17 at 09:00 Metoprolol Tartrate (Lopressor) 50 mg BID PO Last administered on 01/09/17 09: 14; Admin Dose 50 MG; Start 01/07/17 at 21:00 RADHAMES DODD Jan 09, 2017 14:19
--- NOTE | 2017-01-09 15:03 | PN ---
Date/Time of Note Date/Time of Note DATE: 01/09/17 TIME: 15:02 Assessment/Plan VTE Prophylaxis VTE Prophylaxis Intervention: other Lines/Catheters IV Catheter Type (from [facility]): Saline Lock Urinary Cath still in place: No (Suprapubic) Assessment/Plan Chief Complaint/Hosp Course SUBJECTIVE: The patient is currently in Tele. D/W cardiology. The patient was extubated on 01/05. No other events noted, no hemoptysis, hemetemesis, hematuria, fever, diaphoresis, new rash, hematochezia. good uop with lasix imaging studies were reviewed has dysphagia OBJECTIVE: HEENT: Head is normocephalic. NECK: Supple. HEART: Regular rate. LUNGS: Show diminished breath sounds at base. ABDOMEN: Soft, nontender to palpation. No rebound or guarding. EXTREMITIES: Negative for clubbing, cyanosis, or edema. DERMATOLOGIC: No rashes. MUSCULOSKELETAL: No joint effusions. NEUROLOGIC: Limited. MEDICATIONS: Have been reviewed. ASSESSMENT AND PLAN: 1. Coronary artery disease, status post coronary artery bypass graft performed emergently 2-vessel. Continue current treatment plan. 2. Non-ST elevation myocardial infarction, status post cardiac catheterization with complications including RCA dissection requiring emergent coronary artery bypass graft. continue acei, asa, b-osmar 3. Status post cardiac arrest with spontaneous return of circulation. Continue to monitor. 4. Hypertension. BP is now at target 5. Respiratory failure, status post extubation. Currently the patient is currently stable. 6. Anemia. check iron panel. no transfusion yet 7. Leukocytosis, likely reactive. The patient is on antibiotic therapy, continue to monitor. Follow up with infectious disease. 8 Dysphagia. Continue speech therapy. may need tube-feeding if she continues to lose weight 9. Diabetes. Continue current insulin regimen. 10. History of rheumatoid arthritis. Resume medications Novara. 11. Depression. Continue Elavil. 12. Gastrointestinal and deep venous thrombosis prophylaxis. declined acute rehab Problems: Exam/Review of Systems Vital Signs Vitals Vital Signs Date Time Temp Pulse Resp B/P Pulse Ox O2 Delivery O2 Flow Rate FiO2 01/09/17 13:53 3.0 32 01/09/17 12:30 Nasal Cannula 01/09/17 12:27 69 01/09/17 11:20 97.4 18 143/65 97 Intake and Output 01/08/17 01/08/1701/09/17 15:00 23:00 07:00 Intake Total 50 ml 800 ml 300 ml Output Total 350 ml 280 ml Balance 50 ml 450 ml 20 ml Results Result Diagram: 01/08/1752001/08/17520 Results 24 hrs Laboratory Tests Test 01/08/17 17:14 01/08/17 21:13 01/09/17 09:08 01/09/17 12:31 Bedside Glucose 95 107 91 108 Medications Medications Current Medications Morphine Sulfate (morphine) 2 mg Q2H PRN IV FOR NON CARDIAC PAIN (4-10) Last administered on 01/09/17 12:38; Admin Dose 2 MG; Start 01/02/17 at 17:00 Clopidogrel Bisulfate (plaVIX) 75 mg DAILY PO Last administered on 01/09/17 09 :13; Admin Dose 75 MG; Start 01/03/17 at 09:00 Atorvastatin Calcium (Lipitor) 40 mg HS PO Last administered on 01/08/17 21:01 ; Admin Dose 40 MG; Start 01/02/17 at 21:00 Amitriptyline HCl (Elavil) 75 mg QHS PO Last administered on 01/08/17 21:02; Admin Dose 75 MG; Start 01/03/17 at 21:00 Leflunomide (Arava) 20 mg DAILY PO Last administered on 01/09/17 09:16; Admin Dose 20 MG; Start 01/03/17 at 10:00; Status Future hold Meclizine HCl (Antivert) 25 mg Q8H PRN PO DIZZINESS; Start 01/03/17 at 08:30 Phenazopyridine HCl (Pyridium) 200 mg TID PO Last administered on 01/09/17 12: 32; Admin Dose 200 MG; Start 01/03/17 at 10:00 Ranitidine HCl (Zantac) 300 mg HS PO Last administered on 01/08/17 21:00; Admin Dose 300 MG; Start 01/03/17 at 21:00 Zolpidem Tartrate (Ambien) 5 mg HS PRN PO INSOMNIA Last administered on 21:02; Admin Dose 5 MG; Start 01/03/17 at 23:00 Mupirocin (Bactroban) 1 applic BID TOP Last administered on 01/09/17 09:17; Admin Dose 1 APPLIC; Start 01/04/17 at 21:00 Hydromorphone HCl (Dilaudid) 0.2 mg Q15M PRN IV PAIN LEVEL 1-5 Last administered on 01/05/17 09:19; Admin Dose 0.2 MG; Start 01/04/17 at 20:00 Hydromorphone HCl (Dilaudid) 0.4 mg Q15M PRN IV PAIN LEVEL 6-10; Start at 20:00 Oxycodone/ Acetaminophen (Percocet (5/ 325)) 1 tab Q3H PRN PO PAIN LEVEL 1-5 Last administered on 01/09/17 11:00; Admin Dose 1 TAB; Start 01/04/17 at 20:00 Ondansetron HCl (Zofran Inj) 4 mg Q6H PRN IV NAUSEA AND/OR VOMITING; Start 01/04/17 at 20:00 Famotidine (Pepcid Iv) 20 mg BID@08,20 IV Last administered on 01/09/17 09:15 ; Admin Dose 20 MG; Start 01/04/17 at 20:00 Aspirin (Aspirin) 325 mg DAILY PO Last administered on 01/09/17 09:15; Admin Dose 325 MG; Start 01/05/17 at 09:00 Acetaminophen 650 mg 650 mg Q3H PRN PO ELEVATED TEMPERATURE; Start 01/04/17 at 20:00 Magnesium Sulfate/ Dextrose 100 ml @ 100 mls/hr PRN PRN IVPB PENDING LAB VALUE ; Start 01/04/17 at 20:00 Cefepime HCl (Maxipime 1gm/50 ml (Pmx)) 50 ml @ 100 mls/hr Q24H IVPB Last administered on 01/09/17 09:16; Admin Dose 100 MLS/HR; Start 01/07/17 at 08:00 Amiodarone HCl (Cordarone) 200 mg BID PO Last administered on 01/09/17 09:14; Admin Dose 200 MG; Start 01/07/17 at 09:00 Lisinopril (Zestril) 5 mg DAILY PO Last administered on 01/09/17 09:13; Admin Dose 5 MG; Start 01/07/17 at 09:00 Metoprolol Tartrate (Lopressor) 50 mg BID PO Last administered on 01/09/17 09: 14; Admin Dose 50 MG; Start 01/07/17 at 21:00 SOL ENG DO Jan 09, 2017 15:03
--- NOTE | 2017-01-09 15:19 | CONS ---
Date/Time of Note Date/Time of Note DATE: 01/09/17 TIME: 15:14 Consultation Date/Type/Reason Admit Date/Time Jan 02, 2017 at 17:02 Initial Consult Date SUBJECTIVE: 76 y/o female being treated for NSTEMI and S/P Coronary Artery bypass, Acute UTI , SIRS. No acute changes. Monitored on telemetry. Pt. is awake, alert. Feels good, denies fever, pain. VS: stable. Temp: 97.4 Labs: Reviewed. INDWELLINGS: Suprapubic catheter. ANTIMICROBIALS: The patient is on Vancomycin and Cefepime. PHYSICAL EXAMINATION: GENERAL: This is a fragile, well-developed, elderly woman who is in no distress. HEENT: Head atraumatic, normocephalic. Sclerae anicteric. Buccal mucosa dry. NECK: Supple. CHEST: Rise symmetrical. Breath sounds with crackles. HEART: S1, S2. ABDOMEN: Soft. Bowel tones hypoactive. EXTREMITIES: Without cyanosis. ASSESSMENT: 1. Systemic inflammatory response syndrome. 2. Status post acute respiratory failure. 3. PSA UTI. 4. Diabetes. 5. Status post cardiac arrest and coronary artery bypass graft. 6. Methicillin-resistant Staphylococcus aureus nares colonization. 7. Chronic suprapubic catheter. PLAN: The patient remains stable. Continue cefepime. Monitor Labs. Type of Consultation: ID Referring Provider: QING LI Exam/Review of Systems Vital Signs Vitals Vital Signs Date Time Temp Pulse Resp B/P Pulse Ox O2 Delivery O2 Flow Rate FiO2 01/09/17 13:53 3.0 32 01/09/17 12:30 Nasal Cannula 01/09/17 12:27 69 01/09/17 11:20 97.4 18 143/65 97 Intake and Output 01/08/17 01/08/17 01/09/17 15:00 23:00 07:00 Intake Total 50 ml 800 ml 300 ml Output Total 350 ml 280 ml Balance 50 ml 450 ml 20 ml Results Result Diagram: 01/08/17 0521 01/08/17 0521 Results 24 hrs Laboratory Tests Test 01/08/17 17:14 01/08/17 21:13 01/09/17 09:08 01/09/17 12:31 Bedside Glucose 95 107 91 108 Medications Medications Current Medications Morphine Sulfate (morphine) 2 mg Q2H PRN IV FOR NON CARDIAC PAIN (4-10) Last administered on 01/09/17 12:38; Admin Dose 2 MG; Start 01/02/17 at 17:00 Clopidogrel Bisulfate (plaVIX) 75 mg DAILY PO Last administered on 01/09/17 09 :13; Admin Dose 75 MG; Start 01/03/17 at 09:00 Atorvastatin Calcium (Lipitor) 40 mg HS PO Last administered on 01/08/17 21:01 ; Admin Dose 40 MG; Start 01/02/17 at 21:00 Amitriptyline HCl (Elavil) 75 mg QHS PO Last administered on 01/08/17 21:02; Admin Dose 75 MG; Start 01/03/17 at 21:00 Leflunomide (Arava) 20 mg DAILY PO Last administered on 01/09/17 09:16; Admin Dose 20 MG; Start 01/03/17 at 10:00; Status Future hold Meclizine HCl (Antivert) 25 mg Q8H PRN PO DIZZINESS; Start 01/03/17 at 08:30 Phenazopyridine HCl (Pyridium) 200 mg TID PO Last administered on 01/09/17 12: 32; Admin Dose 200 MG; Start 01/03/17 at 10:00 Ranitidine HCl (Zantac) 300 mg HS PO Last administered on 01/08/17 21:00; Admin Dose 300 MG; Start 01/03/17 at 21:00 Zolpidem Tartrate (Ambien) 5 mg HS PRN PO INSOMNIA Last administered on 21:02; Admin Dose 5 MG; Start 01/03/17 at 23:00 Mupirocin (Bactroban) 1 applic BID TOP Last administered on 01/09/17 09:17; Admin Dose 1 APPLIC; Start 01/04/17 at 21:00 Hydromorphone HCl (Dilaudid) 0.2 mg Q15M PRN IV PAIN LEVEL 1-5 Last administered on 01/05/17 09:19; Admin Dose 0.2 MG; Start 01/04/17 at 20:00 Hydromorphone HCl (Dilaudid) 0.4 mg Q15M PRN IV PAIN LEVEL 6-10; Start at 20:00 Oxycodone/ Acetaminophen (Percocet (5/ 325)) 1 tab Q3H PRN PO PAIN LEVEL 1-5 Last administered on 01/09/17 11:00; Admin Dose 1 TAB; Start 01/04/17 at 20:00 Ondansetron HCl (Zofran Inj) 4 mg Q6H PRN IV NAUSEA AND/OR VOMITING; Start 01/04/17 at 20:00 Famotidine (Pepcid Iv) 20 mg BID@08,20 IV Last administered on 01/09/17 09:15 ; Admin Dose 20 MG; Start 01/04/17 at 20:00 Aspirin (Aspirin) 325 mg DAILY PO Last administered on 01/09/17 09:15; Admin Dose 325 MG; Start 01/05/17 at 09:00 Acetaminophen 650 mg 650 mg Q3H PRN PO ELEVATED TEMPERATURE; Start 01/04/17 at 20:00 Magnesium Sulfate/ Dextrose 100 ml @ 100 mls/hr PRN PRN IVPB PENDING LAB VALUE ; Start 01/04/17 at 20:00 Cefepime HCl (Maxipime 1gm/50 ml (Pmx)) 50 ml @ 100 mls/hr Q24H IVPB Last administered on 01/09/17 09:16; Admin Dose 100 MLS/HR; Start 01/07/17 at 08:00 Amiodarone HCl (Cordarone) 200 mg BID PO Last administered on 01/09/17 09:14; Admin Dose 200 MG; Start 01/07/17 at 09:00 Lisinopril (Zestril) 5 mg DAILY PO Last administered on 01/09/17 09:13; Admin Dose 5 MG; Start 01/07/17 at 09:00 Metoprolol Tartrate (Lopressor) 50 mg BID PO Last administered on 01/09/17 09: 14; Admin Dose 50 MG; Start 01/07/17 at 21:00 ESTEVAN ANDREWS Jan 09, 2017 15:19
--- NOTE | 2017-01-09 16:55 | CONS ---
Date/Time of Note Date/Time of Note DATE: 01/09/17 TIME: 16:55 Assessment/Plan Assessment/Plan Additional Assessment/Plan Additional Assessment/Plan Additional Assessment/Plan IMPRESSION: 1. Normochromic normocytic anemia. 2. Dysphagia. Persistent 3. Coronary artery disease, non-ST elevation myocardial infarction. 4. Hypertension. 5. Dyslipidemia. 6. Urinary tract infection. 7. Status post emergency coronary artery bypass graft Plan Continue postop care Discussed with the staff for aspiration precaution. patient will need EGD once stable and cleared from cardiac standpoint Consultation Date/Type/Reason Admit Date/Time Jan 02, 2017 at 17:02 Initial Consult Date 01/04/17 Type of Consultation: ID Referring Provider: QING LI 24 HR Interval Summary Free Text/Dictation Complaints of dysphagia Constitutional: improved Exam/Review of Systems Vital Signs Vitals Vital Signs Date Time Temp Pulse Resp B/P Pulse Ox O2 Delivery O2 Flow Rate FiO2 01/09/17 16:32 68 01/09/17 16:20 Nasal Cannula 1.0 01/09/17 15:59 97.4 18 121/61 96 01/09/17 13:53 32 Intake and Output 01/08/17 01/08/17 01/09/17 15:00 23:00 07:00 Intake Total 50 ml 800 ml 300 ml Output Total 350 ml 280 ml Balance 50 ml 450 ml 20 ml Exam Constitutional: alert, oriented, well developed Psych: nl mood/affect, no complaints Head: atraumatic, normocephalic Eyes: EOMI, PERRL, nl conjunctiva, nl lids, nl sclera ENMT: nl external ears & nose, nl lips & teeth, nl nasal mucosa & septum Neck: non-tender, supple Respiratory: clear to auscultation, normal air movement Cardiovascular: nl pulses, regular rate and rhythm Gastrointestinal: nl liver, spleen, non-tender, soft Musculoskeletal: nl extremities to inspection, nl gait and stance Extremities: normal pulses Neurological: CHORAL TEACHER II-XII intact, nl mental status, nl speech, nl strength Skin: nl turgor, No rash or lesions Lymph: nl lymph nodes Results Result Diagram: 01/08/17 0521 01/08/17 0521 Results 24 hrs Laboratory Tests Test 01/08/17 17:14 01/08/17 21:13 01/09/17 09:08 01/09/17 12:31 Bedside Glucose 95 107 91 108 Medications Medications Current Medications Morphine Sulfate (morphine) 2 mg Q2H PRN IV FOR NON CARDIAC PAIN (4-10) Last administered on 01/09/17 12:38; Admin Dose 2 MG; Start 01/02/17 at 17:00 Clopidogrel Bisulfate (plaVIX) 75 mg DAILY PO Last administered on 01/09/17 09 :13; Admin Dose 75 MG; Start 01/03/17 at 09:00 Atorvastatin Calcium (Lipitor) 40 mg HS PO Last administered on 01/08/17 21:01 ; Admin Dose 40 MG; Start 01/02/17 at 21:00 Amitriptyline HCl (Elavil) 75 mg QHS PO Last administered on 01/08/17 21:02; Admin Dose 75 MG; Start 01/03/17 at 21:00 Leflunomide (Arava) 20 mg DAILY PO Last administered on 01/09/17 09:16; Admin Dose 20 MG; Start 01/03/17 at 10:00; Status Future hold Meclizine HCl (Antivert) 25 mg Q8H PRN PO DIZZINESS; Start 01/03/17 at 08:30 Phenazopyridine HCl (Pyridium) 200 mg TID PO Last administered on 01/09/17 12: 32; Admin Dose 200 MG; Start 01/03/17 at 10:00 Ranitidine HCl (Zantac) 300 mg HS PO Last administered on 01/08/17 21:00; Admin Dose 300 MG; Start 01/03/17 at 21:00 Zolpidem Tartrate (Ambien) 5 mg HS PRN PO INSOMNIA Last administered on 21:02; Admin Dose 5 MG; Start 01/03/17 at 23:00 Mupirocin (Bactroban) 1 applic BID TOP Last administered on 01/09/17 09:17; Admin Dose 1 APPLIC; Start 01/04/17 at 21:00 Hydromorphone HCl (Dilaudid) 0.2 mg Q15M PRN IV PAIN LEVEL 1-5 Last administered on 01/05/17 09:19; Admin Dose 0.2 MG; Start 01/04/17 at 20:00 Hydromorphone HCl (Dilaudid) 0.4 mg Q15M PRN IV PAIN LEVEL 6-10; Start at 20:00 Oxycodone/ Acetaminophen (Percocet (5/ 325)) 1 tab Q3H PRN PO PAIN LEVEL 1-5 Last administered on 01/09/17 11:00; Admin Dose 1 TAB; Start 01/04/17 at 20:00 Ondansetron HCl (Zofran Inj) 4 mg Q6H PRN IV NAUSEA AND/OR VOMITING; Start 01/04/17 at 20:00 Aspirin (Aspirin) 325 mg DAILY PO Last administered on 01/09/17 09:15; Admin Dose 325 MG; Start 01/05/17 at 09:00 Acetaminophen 650 mg 650 mg Q3H PRN PO ELEVATED TEMPERATURE; Start 01/04/17 at 20:00 Magnesium Sulfate/ Dextrose 100 ml @ 100 mls/hr PRN PRN IVPB PENDING LAB VALUE ; Start 01/04/17 at 20:00 Cefepime HCl (Maxipime 1gm/50 ml (Pmx)) 50 ml @ 100 mls/hr Q24H IVPB Last administered on 01/09/17 09:16; Admin Dose 100 MLS/HR; Start 01/07/17 at 08:00 Amiodarone HCl (Cordarone) 200 mg BID PO Last administered on 01/09/17 09:14; Admin Dose 200 MG; Start 01/07/17 at 09:00 Lisinopril (Zestril) 5 mg DAILY PO Last administered on 01/09/17 09:13; Admin Dose 5 MG; Start 01/07/17 at 09:00 Metoprolol Tartrate (Lopressor) 50 mg BID PO Last administered on 01/09/17 09: 14; Admin Dose 50 MG; Start 01/07/17 at 21:00 Famotidine (Pepcid) 20 mg DAILY@08 PO ; Start 01/10/17 at 08:00 EVY SAUCEDA MD Jan 09, 2017 16:55
[2017-01-09] MEDS: ATORVASTATIN 40 MG TAB PO SCH (21:44)
[2017-01-09] MEDS: AMITRIPTYLINE 25 MG TAB PO SCH (21:46)
[2017-01-09] MEDS: RANITIDINE 150 MG TAB PO SCH (21:46)
[2017-01-09] MEDS: ACETAMINOPHEN 325 MG TAB PO PRN (21:52)
[2017-01-10] VITALS (12 sets, daily range): BP systolic 106–164; BP diastolic 55–74; PULSE 66–85; RESP 16–20
[2017-01-10] MEDS: OXYCODONE/ACETAMINOPHEN (5/325) TAB PO PRN ×2 (04:28→12:41)
--- NOTE | 2017-01-10 06:45 | CONS ---
Date/Time of Note Date/Time of Note DATE: 01/10/17 TIME: 06:44 Assessment/Plan Assessment/Plan Chief Complaint/Hosp Course Acute diastolic heart failure: EF remains preserved post CABG. Likely from IVF. Euvolemic now Paroxysmal atrial fibrillation: common post cardiac surgery. Will control with amiodarone but plan will be short term for ~1 month CAD s/p CABG: emergent SHAW-LAD and SVG-RCA for proximal RCA dissection during cardiac cath NSTEMI s/p attempted PCI of RCA 01/02 and again 01/04 complicated by RCA dissection requiring emergent CABG VF arrest: in setting of RCA dissection. Cardiogenic shock: in setting of above. IABP removed. resolved Acute respiratory failure: Now extubated 01/05 HTN HL Chronic suprapubic catheter Bladder surgery Dysphagia UTI -ok to proceed with EGD from cardiac standpoint as stable cardiovascular issues. Otherwise if no plan for EGD, can be discharged to SNF or home depnding on PT progress -metoprolol 25mg BID -amiodarone 200mg BID -ASA, plavix -lipitor -lisinopril 5mg daily Problems: Consultation Date/Type/Reason Admit Date/Time Jan 02, 2017 at 17:02 Type of Consultation: Cardiology Referring Provider: QING LI 24 HR Interval Summary Free Text/Dictation Had short runs of afib overnight. No complaints Exam/Review of Systems Vital Signs Vitals Vital Signs Date Time Temp Pulse Resp B/P Pulse Ox O2 Delivery O2 Flow Rate FiO2 01/10/17 04:47 70 01/10/17 04:12 98.5 20 110/59 98 01/09/17 21:52 1.0 01/09/17 20:03 Nasal Cannula 01/09/17 13:53 32 Intake and Output 01/09/17 01/09/17 01/10/17 14:59 22:59 06:59 Intake Total 800 ml 300 ml Output Total 1350 ml 500 ml Balance -550 ml -200 ml Exam Constitutional: alert, oriented Psych: no complaints Head: atraumatic, normocephalic Neck: No jvd Respiratory: clear to auscultation, No crackles/rales Cardiovascular: regular rate and rhythm, No edema, No systolic murmur Gastrointestinal: non-tender, soft Neurological: nl mental status, nl speech Results Result Diagram: 01/08/17 0521 01/08/17 0521 Results 24 hrs Laboratory Tests Test 01/09/17 09:08 01/09/17 12:31 01/09/17 18:07 01/09/17 21:54 Bedside Glucose 91 108 150 129 Medications Medications Current Medications Morphine Sulfate (morphine) 2 mg Q2H PRN IV FOR NON CARDIAC PAIN (4-10) Last administered on 01/09/17 12:38; Admin Dose 2 MG; Start 01/02/17 at 17:00 Clopidogrel Bisulfate (plaVIX) 75 mg DAILY PO Last administered on 01/09/17 09 :13; Admin Dose 75 MG; Start 01/03/17 at 09:00 Atorvastatin Calcium (Lipitor) 40 mg HS PO Last administered on 01/09/17 21:44 ; Admin Dose 40 MG; Start 01/02/17 at 21:00 Amitriptyline HCl (Elavil) 75 mg QHS PO Last administered on 01/09/17 21:46; Admin Dose 75 MG; Start 01/03/17 at 21:00 Leflunomide (Arava) 20 mg DAILY PO Last administered on 01/09/17 09:16; Admin Dose 20 MG; Start 01/03/17 at 10:00; Status Future hold Meclizine HCl (Antivert) 25 mg Q8H PRN PO DIZZINESS; Start 01/03/17 at 08:30 Phenazopyridine HCl (Pyridium) 200 mg TID PO Last administered on 01/09/17 21: 44; Admin Dose 200 MG; Start 01/03/17 at 10:00 Ranitidine HCl (Zantac) 300 mg HS PO Last administered on 01/09/17 21:46; Admin Dose 300 MG; Start 01/03/17 at 21:00 Zolpidem Tartrate (Ambien) 5 mg HS PRN PO INSOMNIA Last administered on 21:02; Admin Dose 5 MG; Start 01/03/17 at 23:00 Mupirocin (Bactroban) 1 applic BID TOP Last administered on 01/09/17 21:47; Admin Dose 1 APPLIC; Start 01/04/17 at 21:00 Hydromorphone HCl (Dilaudid) 0.2 mg Q15M PRN IV PAIN LEVEL 1-5 Last administered on 01/05/17 09:19; Admin Dose 0.2 MG; Start 01/04/17 at 20:00 Hydromorphone HCl (Dilaudid) 0.4 mg Q15M PRN IV PAIN LEVEL 6-10; Start at 20:00 Oxycodone/ Acetaminophen (Percocet (5/ 325)) 1 tab Q3H PRN PO PAIN LEVEL 1-5 Last administered on 01/10/17 04:28; Admin Dose 1 TAB; Start 01/04/17 at 20:00 Ondansetron HCl (Zofran Inj) 4 mg Q6H PRN IV NAUSEA AND/OR VOMITING; Start 01/04/17 at 20:00 Aspirin (Aspirin) 325 mg DAILY PO Last administered on 01/09/17 09:15; Admin Dose 325 MG; Start 01/05/17 at 09:00 Acetaminophen 650 mg 650 mg Q3H PRN PO ELEVATED TEMPERATURE Last administered on 01/09/17 21:52; Admin Dose 650 MG; Start 01/04/17 at 20:00 Magnesium Sulfate/ Dextrose 100 ml @ 100 mls/hr PRN PRN IVPB PENDING LAB VALUE ; Start 01/04/17 at 20:00 Cefepime HCl (Maxipime 1gm/50 ml (Pmx)) 50 ml @ 100 mls/hr Q24H IVPB Last administered on 01/09/17 09:16; Admin Dose 100 MLS/HR; Start 01/07/17 at 08:00 Amiodarone HCl (Cordarone) 200 mg BID PO Last administered on 01/09/17 21:46; Admin Dose 200 MG; Start 01/07/17 at 09:00 Lisinopril (Zestril) 5 mg DAILY PO Last administered on 01/09/17 09:13; Admin Dose 5 MG; Start 01/07/17 at 09:00 Metoprolol Tartrate (Lopressor) 50 mg BID PO Last administered on 01/09/17 21: 45; Admin Dose 50 MG; Start 01/07/17 at 21:00 Famotidine (Pepcid) 20 mg DAILY@08 PO ; Start 01/10/17 at 08:00 QING LI Jan 10, 2017 06:45
[2017-01-10] MEDS: ACCU-CHEK XX SCH ×4 (07:42→22:13)
[2017-01-10] MEDS: CEFEPIME 1GM/50 ML (PMX) 50 ML IVPB SCH (07:43)
[2017-01-10] MEDS: MUPIROCIN 2% 22 GM OINT TOP SCH ×2 (07:43→21:18)
[2017-01-10] MEDS: BALSAM PERU/CASTOR OIL 60 GM TUBE TOP SCH (07:43)
[2017-01-10] MEDS: PHENAZOPYRIDINE 200 MG TAB PO SCH ×3 (07:44→21:16)
[2017-01-10] MEDS: LISINOPRIL 5 MG TAB PO SCH (07:44)
[2017-01-10] MEDS: FAMOTIDINE 20 MG TAB PO SCH (07:44)
[2017-01-10] MEDS: LEFLUNOMIDE 10 MG TAB PO SCH (07:44)
[2017-01-10] MEDS: ASPIRIN 325 MG TAB PO SCH (07:44)
[2017-01-10] MEDS: CLOPIDOGREL 75 MG TAB PO SCH (07:44)
[2017-01-10] MEDS: METOPROLOL 25 MG TAB PO SCH ×2 (07:45→21:17)
[2017-01-10] MEDS: AMIODARONE 200 MG TAB PO SCH ×2 (07:45→21:18)
--- NOTE | 2017-01-10 10:08 | RADRPT ---
PROCEDURE: XR Chest 1 View. CLINICAL INDICATION: Shortness of breath. TECHNIQUE: AP view of the chest was obtained. COMPARISON: DR BENZ 01/07/2017 FINDINGS: The heart size is within normal limits. Calcified atherosclerosis is noted in the aorta. Median bobbi rnotomy wires overlie the heart. Mediastinal drain has been removed. Right-sided vascular access she ath has been removed. Bilateral chest tubes have been removed. No pneumothorax as visualized. Centra l pulmonary vascular congestion and interstitial prominence is seen in both lungs. Retrocardiac opac ity stable. Patchy right lower lobe infiltrates and small right pleural effusion are likely stable, given differences in technique. Osseous structures are intact. IMPRESSION: Calcified atherosclerosis in the aorta. Interval bilateral chest tube removals. No visualized pneumothorax. Central pulmonary vascular congestion and interstitial prominence in both lungs. Stable retrocardiac opacity that may reflect left lower lobe atelectasis or infiltrate combined with small pleural effusion. Stable patchy right lower lobe infiltrates and small right pleural effusion. RPTAT: AA .Greg Anaya MD, MD Date Time Electronically viewed and signed by .Greg Anaya MD, on 01/10/2017 10:07 .P/
--- NOTE | 2017-01-10 10:44 | CONS ---
Date/Time of Note Date/Time of Note DATE: 01/10/17 TIME: 10:43 Assessment/Plan Assessment/Plan Additional Assessment/Plan Additional Assessment/Plan IMPRESSION: 1. Normochromic normocytic anemia. 2. Dysphagia. Persistent 3. Coronary artery disease, non-ST elevation myocardial infarction. 4. Hypertension. 5. Dyslipidemia. 6. Urinary tract infection. 7. Status post emergency coronary artery bypass graft Plan Continue postop care Discussed with the staff for aspiration precaution. Skin is cleared by the concrete products machine operator and that she is scheduled for EGD tomorrow Consultation Date/Type/Reason Admit Date/Time Jan 02, 2017 at 17:02 Initial Consult Date 01/04/17 Type of Consultation: Cardiology Referring Provider: QING LI 24 HR Interval Summary Free Text/Dictation Some complaints of dysphagia unable to eat solid food. She is to drink soda or liquid to push the food down Exam/Review of Systems Vital Signs Vitals Vital Signs Date Time Temp Pulse Resp B/P Pulse Ox O2 Delivery O2 Flow Rate FiO2 01/10/17 08:19 98.1 79 18 149/74 96 01/10/17 06:52 2.0 01/09/17 20:03 Nasal Cannula 01/09/17 13:53 32 Intake and Output 01/09/17 01/09/17 01/10/17 15:00 23:00 07:00 Intake Total 800 ml 300 ml Output Total 1350 ml 500 ml Balance -550 ml -200 ml Exam Constitutional: alert, oriented, well developed Psych: nl mood/affect, no complaints Head: atraumatic, normocephalic Eyes: EOMI, PERRL, nl conjunctiva, nl lids, nl sclera ENMT: nl external ears & nose, nl lips & teeth, nl nasal mucosa & septum Neck: non-tender, supple Respiratory: clear to auscultation, normal air movement Cardiovascular: nl pulses, regular rate and rhythm Gastrointestinal: nl liver, spleen, non-tender, soft Musculoskeletal: nl extremities to inspection, nl gait and stance Extremities: normal pulses Neurological: SCOW CAPTAIN II-XII intact, nl mental status, nl speech, nl strength Skin: nl turgor, No rash or lesions Lymph: nl lymph nodes Results Result Diagram: 01/08/17 0521 01/08/17 0521 Results 24 hrs Laboratory Tests Test 01/09/17 12:31 01/09/17 18:07 01/09/17 21:54 01/10/17 07:41 Bedside Glucose 108 150 129 88 Medications Medications Current Medications Morphine Sulfate (morphine) 2 mg Q2H PRN IV FOR NON CARDIAC PAIN (4-10) Last administered on 01/09/17 12:38; Admin Dose 2 MG; Start 01/02/17 at 17:00 Clopidogrel Bisulfate (plaVIX) 75 mg DAILY PO Last administered on 01/10/17 07:44; Admin Dose 75 MG; Start 01/03/17 at 09:00 Atorvastatin Calcium (Lipitor) 40 mg HS PO Last administered on 01/09/17 21:44 ; Admin Dose 40 MG; Start 01/02/17 at 21:00 Amitriptyline HCl (Elavil) 75 mg QHS PO Last administered on 01/09/17 21:46; Admin Dose 75 MG; Start 01/03/17 at 21:00 Leflunomide (Arava) 20 mg DAILY PO Last administered on 01/10/17 07:44; Admin Dose 20 MG; Start 01/03/17 at 10:00; Status Future hold Meclizine HCl (Antivert) 25 mg Q8H PRN PO DIZZINESS; Start 01/03/17 at 08:30 Phenazopyridine HCl (Pyridium) 200 mg TID PO Last administered on 01/10/17 07 :44; Admin Dose 200 MG; Start 01/03/17 at 10:00 Ranitidine HCl (Zantac) 300 mg HS PO Last administered on 01/09/17 21:46; Admin Dose 300 MG; Start 01/03/17 at 21:00 Zolpidem Tartrate (Ambien) 5 mg HS PRN PO INSOMNIA Last administered on 21:02; Admin Dose 5 MG; Start 01/03/17 at 23:00 Mupirocin (Bactroban) 1 applic BID TOP Last administered on 01/10/17 07:43; Admin Dose 1 APPLIC; Start 01/04/17 at 21:00 Hydromorphone HCl (Dilaudid) 0.2 mg Q15M PRN IV PAIN LEVEL 1-5 Last administered on 01/05/17 09:19; Admin Dose 0.2 MG; Start 01/04/17 at 20:00 Hydromorphone HCl (Dilaudid) 0.4 mg Q15M PRN IV PAIN LEVEL 6-10; Start at 20:00 Oxycodone/ Acetaminophen (Percocet (5/ 325)) 1 tab Q3H PRN PO PAIN LEVEL 1-5 Last administered on 01/10/17 04:28; Admin Dose 1 TAB; Start 01/04/17 at 20:00 Ondansetron HCl (Zofran Inj) 4 mg Q6H PRN IV NAUSEA AND/OR VOMITING; Start 01/04/17 at 20:00 Aspirin (Aspirin) 325 mg DAILY PO Last administered on 01/10/17 07:44; Admin Dose 325 MG; Start 01/05/17 at 09:00 Acetaminophen 650 mg 650 mg Q3H PRN PO ELEVATED TEMPERATURE Last administered on 01/09/17 21:52; Admin Dose 650 MG; Start 01/04/17 at 20:00 Magnesium Sulfate/ Dextrose 100 ml @ 100 mls/hr PRN PRN IVPB PENDING LAB VALUE ; Start 01/04/17 at 20:00 Cefepime HCl (Maxipime 1gm/50 ml (Pmx)) 50 ml @ 100 mls/hr Q24H IVPB Last administered on 01/10/17 07:43; Admin Dose 100 MLS/HR; Start 01/07/17 at 08:00 Amiodarone HCl (Cordarone) 200 mg BID PO Last administered on 01/10/17 07:45 ; Admin Dose 200 MG; Start 01/07/17 at 09:00 Lisinopril (Zestril) 5 mg DAILY PO Last administered on 01/10/17 07:44; Admin Dose 5 MG; Start 01/07/17 at 09:00 Metoprolol Tartrate (Lopressor) 50 mg BID PO Last administered on 01/10/17 07 :45; Admin Dose 50 MG; Start 01/07/17 at 21:00 Famotidine (Pepcid) 20 mg DAILY@08 PO Last administered on 01/10/17 07:44; Admin Dose 20 MG; Start 01/10/17 at 08:00 EVY SAUCEDA MD Jan 10, 2017 10:44
--- NOTE | 2017-01-10 13:28 | CONS ---
Date/Time of Note Date/Time of Note DATE: 01/10/17 TIME: 13:27 Consult Date/Type/Reason Admit Date/Time Jan 02, 2017 at 17:02 Initial Consult Date 01/05/17 Type of Consultation: nephrology Ordering Provider: QING LI pt. seen and examined planned egd in am cleared by cards OBJECTIVE: HEENT: Head is normocephalic. NECK: Supple. HEART: Regular rate. LUNGS: Show diminished breath sounds at base. ABDOMEN: Soft, nontender to palpation. No rebound or guarding. EXTREMITIES: Negative for clubbing, cyanosis, or edema. DERMATOLOGIC: No rashes. MUSCULOSKELETAL: No joint effusions. NEUROLOGIC: Limited. Objective Vital Signs Date Time Temp Pulse Resp B/P Pulse Ox O2 Delivery O2 Flow Rate FiO2 01/10/17 13:01 98.2 70 17 151/72 94 01/10/17 06:52 2.0 01/09/17 20:03 Nasal Cannula 01/09/17 13:53 32 Intake and Output 01/09/17 01/09/17 01/10/17 15:00 23:00 07:00 Intake Total 800 ml 300 ml Output Total 1350 ml 500 ml Balance -550 ml -200 ml Results/Medications Result Diagram: 01/08/1752001/08/17520 Results 24 hrs Laboratory Tests Test 01/09/17 18:07 01/09/17 21:54 01/10/17 07:41 01/10/17 12:29 Bedside Glucose 150 129 88 90 Medications Current Medications Morphine Sulfate (morphine) 2 mg Q2H PRN IV FOR NON CARDIAC PAIN (4-10) Last administered on 01/09/17 12:38; Admin Dose 2 MG; Start 01/02/17 at 17:00 Clopidogrel Bisulfate (plaVIX) 75 mg DAILY PO Last administered on 01/10/17 07:44; Admin Dose 75 MG; Start 01/03/17 at 09:00 Atorvastatin Calcium (Lipitor) 40 mg HS PO Last administered on 01/09/17 21:44 ; Admin Dose 40 MG; Start 01/02/17 at 21:00 Amitriptyline HCl (Elavil) 75 mg QHS PO Last administered on 01/09/17 21:46; Admin Dose 75 MG; Start 01/03/17 at 21:00 Leflunomide (Arava) 20 mg DAILY PO Last administered on 01/10/17 07:44; Admin Dose 20 MG; Start 01/03/17 at 10:00; Status Future hold Meclizine HCl (Antivert) 25 mg Q8H PRN PO DIZZINESS; Start 01/03/17 at 08:30 Phenazopyridine HCl (Pyridium) 200 mg TID PO Last administered on 01/10/17 12 :40; Admin Dose 200 MG; Start 01/03/17 at 10:00 Ranitidine HCl (Zantac) 300 mg HS PO Last administered on 01/09/17 21:46; Admin Dose 300 MG; Start 01/03/17 at 21:00 Zolpidem Tartrate (Ambien) 5 mg HS PRN PO INSOMNIA Last administered on 21:02; Admin Dose 5 MG; Start 01/03/17 at 23:00 Mupirocin (Bactroban) 1 applic BID TOP Last administered on 01/10/17 07:43; Admin Dose 1 APPLIC; Start 01/04/17 at 21:00 Hydromorphone HCl (Dilaudid) 0.2 mg Q15M PRN IV PAIN LEVEL 1-5 Last administered on 01/05/17 09:19; Admin Dose 0.2 MG; Start 01/04/17 at 20:00 Hydromorphone HCl (Dilaudid) 0.4 mg Q15M PRN IV PAIN LEVEL 6-10; Start at 20:00 Oxycodone/ Acetaminophen (Percocet (5/ 325)) 1 tab Q3H PRN PO PAIN LEVEL 1-5 Last administered on 01/10/17 12:41; Admin Dose 1 TAB; Start 01/04/17 at 20:00 Ondansetron HCl (Zofran Inj) 4 mg Q6H PRN IV NAUSEA AND/OR VOMITING; Start 01/04/17 at 20:00 Aspirin (Aspirin) 325 mg DAILY PO Last administered on 01/10/17 07:44; Admin Dose 325 MG; Start 01/05/17 at 09:00 Acetaminophen 650 mg 650 mg Q3H PRN PO ELEVATED TEMPERATURE Last administered on 01/09/17 21:52; Admin Dose 650 MG; Start 01/04/17 at 20:00 Magnesium Sulfate/ Dextrose 100 ml @ 100 mls/hr PRN PRN IVPB PENDING LAB VALUE ; Start 01/04/17 at 20:00 Cefepime HCl (Maxipime 1gm/50 ml (Pmx)) 50 ml @ 100 mls/hr Q24H IVPB Last administered on 01/10/17 07:43; Admin Dose 100 MLS/HR; Start 01/07/17 at 08:00 Amiodarone HCl (Cordarone) 200 mg BID PO Last administered on 01/10/17 07:45 ; Admin Dose 200 MG; Start 01/07/17 at 09:00 Lisinopril (Zestril) 5 mg DAILY PO Last administered on 01/10/17 07:44; Admin Dose 5 MG; Start 01/07/17 at 09:00 Metoprolol Tartrate (Lopressor) 50 mg BID PO Last administered on 01/10/17 07 :45; Admin Dose 50 MG; Start 01/07/17 at 21:00 Famotidine (Pepcid) 20 mg DAILY@08 PO Last administered on 01/10/17 07:44; Admin Dose 20 MG; Start 01/10/17 at 08:00 Assessment/Plan Chief Complaint/Hosp Course 1. Coronary artery disease, status post coronary artery bypass graft performed emergently 2-vessel. Continue current treatment plan. 2. Non-ST elevation myocardial infarction, status post cardiac catheterization with complications including RCA dissection requiring emergent coronary artery bypass graft. continue acei, asa, b-osmar 3. Status post cardiac arrest with spontaneous return of circulation. Continue to monitor. 4. Hypertension. BP is now at target 5. Respiratory failure, status post extubation. Currently the patient is currently stable. 6. Anemia. check iron panel. no transfusion yet 7. Leukocytosis, likely reactive. The patient is on antibiotic therapy, continue to monitor. Follow up with infectious disease. 8 Dysphagia. Continue speech therapy. may need tube-feeding if she continues to lose weight 9. Diabetes. Continue current insulin regimen. 10. History of rheumatoid arthritis. Resume medications Novara. 11. Depression. Continue Elavil. 12. Gastrointestinal and deep venous thrombosis prophylaxis. Problems: JASMIN BLAKE MD Jan 10, 2017 13:28
--- NOTE | 2017-01-10 18:36 | PN ---
DATE: 01/10/2017 INFECTIOUS DISEASE PROGRESS NOTE SUBJECTIVE: No events overnight. The patient is alert, looks comfortable, complaining of difficult y swallowing. She is in no distress. No fevers again. LABORATORY: No CBC this morning. MICROBIOLOGY: Blood cultures had been negative. Urine culture on admission grew Pseudomonas aerugi nosa. ANTIMICROBIALS: The patient is on IV cefepime. She is also getting Bactroban to nares. INDWELLINGS: She has suprapubic catheter. DIAGNOSTICS: Chest x-ray this morning revealed stable retrocardiac opacities, stable patchy right l ower lobe infiltrates and small right pleural effusion. PHYSICAL EXAMINATION: GENERAL: This is a fragile, elderly woman who is awake, in no distress. HEENT: Head atraumatic, normocephalic. Sclerae anicteric. Buccal mucosa dry. NECK: Supple. CHEST: Rise symmetrical. ABDOMEN: Soft, bowel tones present. EXTREMITIES: Without cyanosis. SKIN: With multiple bruises on her sternum and also multiple ecchymotic areas. ASSESSMENT: 1. Recurrent urinary tract infection. 2. Status post acute myocardial infarction requiring emergent coronary artery bypass graft on 01/04, status post cardiopulmonary arrest. 3. Diabetes. 4. Methicillin-resistant Staphylococcus aureus nares colonization. 5. Dysphagia. PLAN: Patient remains stable. She is being followed by multiple consultants, gastroenterology on c ase, pending esophagogastroduodenoscopy to evaluate for dysphagia. Dictated By: WEST LIAO VIGOUREUX PRINTER for LEIDY WANG/RONALD Conf#: [id number] DID#: [id number]
[2017-01-10] MEDS ORDERED: DEXTROSE 50% 50 ML SYRINGE IV ONE (19:00)
[2017-01-10] MEDS: DEXTROSE 5%-0.9% NACL 1,000 ML IV SCH (21:15)
[2017-01-10] MEDS: RANITIDINE 150 MG TAB PO SCH (21:16)
[2017-01-10] MEDS: ATORVASTATIN 40 MG TAB PO SCH (21:16)
[2017-01-10] MEDS: AMITRIPTYLINE 25 MG TAB PO SCH (21:17)
[2017-01-10] MEDS: ZOLPIDEM 5 MG TAB PO PRN (22:10)
[2017-01-10] MEDS: ACETAMINOPHEN 325 MG TAB PO PRN (22:10)
[2017-01-11] VITALS (20 sets, daily range): BP systolic 98–181; BP diastolic 50–88; PULSE 69–98; RESP 14–22
--- NOTE | 2017-01-11 07:02 | PN ---
Date/Time of Note Date/Time of Note DATE: 01/11/17 TIME: 07:01 Assessment/Plan Lines/Catheters IV Catheter Type (from [facility]): Peripheral IV Jang in Place (from [facility]): Yes Assessment/Plan Chief Complaint/Hosp Course EGD today follow up after discharge Problems: Exam/Review of Systems Vital Signs Vitals Vital Signs Date Time Temp Pulse Resp B/P Pulse Ox O2 Delivery O2 Flow Rate FiO2 01/11/17 05:00 98.1 72 16 136/60 95 01/11/17 00:10 1.0 01/10/17 20:00 Nasal Cannula 01/09/17 13:53 32 Intake and Output 01/10/17 01/10/17 01/11/17 15:00 23:00 07:00 Intake Total 850 ml 300 ml Output Total 1000 ml 1500 ml Balance -150 ml -1200 ml Results Result Diagram: 01/08/17 0521 01/08/17 0521 JOANN HEWITT MD Jan 11, 2017 07:01
[2017-01-11] MEDS: morphine 2 MG INJ IV PRN ×2 (07:50→15:53)
[2017-01-11] MEDS: CEFEPIME 1GM/50 ML (PMX) 50 ML IVPB SCH (07:51)
[2017-01-11] MEDS: ACCU-CHEK XX SCH ×4 (08:02→21:00)
[2017-01-11] MEDS: DEXTROSE 5%-0.9% NACL 1,000 ML IV SCH ×2 (08:20→20:55)
[2017-01-11] MEDS: AMIODARONE 200 MG TAB PO SCH ×2 (09:36→20:50)
[2017-01-11] MEDS: METOPROLOL 25 MG TAB PO SCH ×2 (09:37→20:50)
[2017-01-11] MEDS: FAMOTIDINE 20 MG TAB PO SCH (09:37)
[2017-01-11] MEDS: PHENAZOPYRIDINE 200 MG TAB PO SCH ×3 (09:38→20:49)
[2017-01-11] MEDS: LISINOPRIL 5 MG TAB PO SCH (09:38)
[2017-01-11] MEDS: CLOPIDOGREL 75 MG TAB PO SCH (09:38)
[2017-01-11] MEDS: LEFLUNOMIDE 10 MG TAB PO SCH (09:38)
[2017-01-11] MEDS: ASPIRIN 325 MG TAB PO SCH (09:39)
[2017-01-11] MEDS: MUPIROCIN 2% 22 GM OINT TOP SCH ×2 (09:40→20:55)
[2017-01-11] MEDS: BALSAM PERU/CASTOR OIL 60 GM TUBE TOP SCH (09:40)
--- NOTE | 2017-01-11 11:46 | PN ---
Date/Time of Note Date/Time of Note DATE: 01/11/17 TIME: 11:45 Assessment/Plan VTE Prophylaxis VTE Prophylaxis Intervention: other Lines/Catheters IV Catheter Type (from [facility] Peripheral IV Urinary Cath still in place: Yes Reason Cath still needed: urinary retention Assessment/Plan Chief Complaint/Hosp Course SUBJECTIVE: The patient is currently in Tele. D/W cardiology. The patient was extubated on 01/05. No other events noted, no hemoptysis, hemetemesis, hematuria, fever, diaphoresis, new rash, hematochezia. good uop with lasix imaging studies were reviewed has dysphagia awaiting EGD today OBJECTIVE: HEENT: Head is normocephalic. NECK: Supple. HEART: Regular rate. LUNGS: Show diminished breath sounds at base. ABDOMEN: Soft, nontender to palpation. No rebound or guarding. EXTREMITIES: Negative for clubbing, cyanosis, or edema. DERMATOLOGIC: No rashes. MUSCULOSKELETAL: No joint effusions. NEUROLOGIC: Limited. MEDICATIONS: Have been reviewed. ASSESSMENT AND PLAN: 1. Coronary artery disease, status post coronary artery bypass graft performed emergently 2-vessel. Continue current treatment plan. 2. Non-ST elevation myocardial infarction, status post cardiac catheterization with complications including RCA dissection requiring emergent coronary artery bypass graft. continue acei, asa, b-osmar 3. Status post cardiac arrest with spontaneous return of circulation. Continue to monitor. 4. Hypertension. BP is now at target 5. Respiratory failure, status post extubation. Currently the patient is currently stable. 6. Anemia. check iron panel. no transfusion yet 7. Leukocytosis, likely reactive. The patient is on antibiotic therapy, continue to monitor. Follow up with infectious disease. 8 Dysphagia. Continue speech therapy. EGD today 9. Diabetes. Continue current insulin regimen. 10. History of rheumatoid arthritis. Resume medications Novara. 11. Depression. Continue Elavil. 12. Gastrointestinal and deep venous thrombosis prophylaxis. declined acute rehab Problems: Exam/Review of Systems Vital Signs Vitals Vital Signs Date Time Temp Pulse Resp B/P Pulse Ox O2 Delivery O2 Flow Rate FiO2 01/11/17 11:23 98.6 74 16 181/88 97 01/11/17 00:10 1.0 01/10/17 20:00 Nasal Cannula 01/09/17 13:53 32 Intake and Output 01/10/17 01/10/17 01/11/17 15:00 23:00 07:00 Intake Total 850 ml 300 ml Output Total 1000 ml 1500 ml Balance -150 ml -1200 ml Results Result Diagram: 01/08/1752001/08/17520 Results 24 hrs Laboratory Tests Test 01/10/17 12:29 01/10/17 17:33 01/10/17 17:50 01/10/17 18:07 Bedside Glucose 90 69 L 80 73 Test 01/10/17 18:22 01/10/17 19:00 01/10/17 22:12 01/11/17 08:01 Bedside Glucose 71 95 199 97 Medications Medications Current Medications Morphine Sulfate (morphine) 2 mg Q2H PRN IV FOR NON CARDIAC PAIN (4-10) Last administered on 01/11/17 07:50; Admin Dose 2 MG; Start 01/02/17 at 17:00 Clopidogrel Bisulfate (plaVIX) 75 mg DAILY PO Last administered on 01/11/17 09:38; Admin Dose 75 MG; Start 01/03/17 at 09:00 Atorvastatin Calcium (Lipitor) 40 mg HS PO Last administered on 01/10/17 21: 16; Admin Dose 40 MG; Start 01/02/17 at 21:00 Amitriptyline HCl (Elavil) 75 mg QHS PO Last administered on 01/10/17 21:17; Admin Dose 75 MG; Start 01/03/17 at 21:00 Leflunomide (Arava) 20 mg DAILY PO Last administered on 01/11/17 09:38; Admin Dose 20 MG; Start 01/03/17 at 10:00; Status Future hold Meclizine HCl (Antivert) 25 mg Q8H PRN PO DIZZINESS; Start 01/03/17 at 08:30 Phenazopyridine HCl (Pyridium) 200 mg TID PO Last administered on 01/11/17 09 :38; Admin Dose 200 MG; Start 01/03/17 at 10:00 Ranitidine HCl (Zantac) 300 mg HS PO Last administered on 01/10/17 21:16; Admin Dose 300 MG; Start 01/03/17 at 21:00 Zolpidem Tartrate (Ambien) 5 mg HS PRN PO INSOMNIA Last administered on 22:10; Admin Dose 5 MG; Start 01/03/17 at 23:00 Mupirocin (Bactroban) 1 applic BID TOP Last administered on 01/11/17 09:40; Admin Dose 1 APPLIC; Start 01/04/17 at 21:00 Hydromorphone HCl (Dilaudid) 0.2 mg Q15M PRN IV PAIN LEVEL 1-5 Last administered on 01/05/17 09:19; Admin Dose 0.2 MG; Start 01/04/17 at 20:00 Hydromorphone HCl (Dilaudid) 0.4 mg Q15M PRN IV PAIN LEVEL 6-10; Start at 20:00 Oxycodone/ Acetaminophen (Percocet (5/ 325)) 1 tab Q3H PRN PO PAIN LEVEL 1-5 Last administered on 01/10/17 12:41; Admin Dose 1 TAB; Start 01/04/17 at 20:00 Ondansetron HCl (Zofran Inj) 4 mg Q6H PRN IV NAUSEA AND/OR VOMITING; Start 01/04/17 at 20:00 Aspirin (Aspirin) 325 mg DAILY PO Last administered on 01/11/17 09:39; Admin Dose 325 MG; Start 01/05/17 at 09:00 Acetaminophen 650 mg 650 mg Q3H PRN PO ELEVATED TEMPERATURE Last administered on 01/10/17 22:10; Admin Dose 650 MG; Start 01/04/17 at 20:00 Magnesium Sulfate/ Dextrose 100 ml @ 100 mls/hr PRN PRN IVPB PENDING LAB VALUE ; Start 01/04/17 at 20:00 Cefepime HCl (Maxipime 1gm/50 ml (Pmx)) 50 ml @ 100 mls/hr Q24H IVPB Last administered on 01/11/17 07:51; Admin Dose 100 MLS/HR; Start 01/07/17 at 08:00 Amiodarone HCl (Cordarone) 200 mg BID PO Last administered on 01/11/17 09:36 ; Admin Dose 200 MG; Start 01/07/17 at 09:00 Lisinopril (Zestril) 5 mg DAILY PO Last administered on 01/11/17 09:38; Admin Dose 5 MG; Start 01/07/17 at 09:00 Metoprolol Tartrate (Lopressor) 50 mg BID PO Last administered on 01/11/17 09 :37; Admin Dose 50 MG; Start 01/07/17 at 21:00 Famotidine 20 mg 20 mg DAILY@08 PO Last administered on 01/11/17 09:37; Admin Dose 20 MG; Start 01/10/17 at 08:00 Dextrose/Sodium Chloride (D5-NS) 1,000 ml @ 75 mls/hr [id number] IV Last administered on 01/10/17 21:15; Admin Dose 75 MLS/HR; Start 01/10/17 at 19:00 SOL ENG DO Jan 11, 2017 11:46
--- NOTE | 2017-01-11 17:42 | CONS ---
Date/Time of Note Date/Time of Note DATE: 01/11/17 TIME: 17:40 Assessment/Plan Assessment/Plan Chief Complaint/Hosp Course Acute diastolic heart failure: EF remains preserved post CABG. Likely from IVF. Euvolemic now Paroxysmal atrial fibrillation: common post cardiac surgery. Will control with amiodarone but plan will be short term for ~1 month. Having short runs but also with some bradycardia CAD s/p CABG: emergent SHAW-LAD and SVG-RCA for proximal RCA dissection during cardiac cath NSTEMI s/p attempted PCI of RCA 01/02 and again 01/04 complicated by RCA dissection requiring emergent CABG VF arrest: in setting of RCA dissection. Cardiogenic shock: in setting of above. IABP removed. resolved Acute respiratory failure: Now extubated 01/05 HTN HL Chronic suprapubic catheter Bladder surgery Dysphagia: EGD today UTI -await EGD results -dispo planning after -metoprolol 25mg BID -amiodarone 200mg BID -ASA, plavix -lipitor -lisinopril 5mg daily Problems: Consultation Date/Type/Reason Admit Date/Time Jan 02, 2017 at 17:02 Type of Consultation: Cardiology Referring Provider: QING LI 24 HR Interval Summary Free Text/Dictation Slightly confused today. Having short runs of afib. Had sinus bradycardia in the 40s as well. Exam/Review of Systems Vital Signs Vitals Vital Signs Date Time Temp Pulse Resp B/P Pulse Ox O2 Delivery O2 Flow Rate FiO2 01/11/17 16:48 85 01/11/17 16:01 Nasal Cannula 3.0 01/11/17 15:49 98.3 19 171/78 96 01/09/17 13:53 32 Intake and Output 01/10/17 01/10/17 01/11/17 15:00 23:00 07:00 Intake Total 850 ml 300 ml Output Total 1000 ml 1500 ml Balance -150 ml -1200 ml Exam Constitutional: alert, No oriented (slightly confused) Psych: nl mood/affect, no complaints Head: atraumatic, normocephalic Neck: No jvd Respiratory: clear to auscultation, No crackles/rales Cardiovascular: regular rate and rhythm, No edema, No systolic murmur Gastrointestinal: non-tender, soft Neurological: nl mental status, nl speech Results Result Diagram: 01/08/17 0521 01/08/17 0521 Results 24 hrs Laboratory Tests Test 01/10/17 17:50 01/10/17 18:07 01/10/17 18:22 01/10/17 19:00 Bedside Glucose 80 73 71 95 Test 01/10/17 22:12 01/11/17 08:01 01/11/17 11:52 Bedside Glucose 199 97 93 Medications Medications Current Medications Morphine Sulfate (morphine) 2 mg Q2H PRN IV FOR NON CARDIAC PAIN (4-10) Last administered on 01/11/17 15:53; Admin Dose 2 MG; Start 01/02/17 at 17:00 Clopidogrel Bisulfate (plaVIX) 75 mg DAILY PO Last administered on 01/11/17 09:38; Admin Dose 75 MG; Start 01/03/17 at 09:00 Atorvastatin Calcium (Lipitor) 40 mg HS PO Last administered on 01/10/17 21: 16; Admin Dose 40 MG; Start 01/02/17 at 21:00 Amitriptyline HCl (Elavil) 75 mg QHS PO Last administered on 01/10/17 21:17; Admin Dose 75 MG; Start 01/03/17 at 21:00 Leflunomide (Arava) 20 mg DAILY PO Last administered on 01/11/17 09:38; Admin Dose 20 MG; Start 01/03/17 at 10:00; Status Future hold Meclizine HCl (Antivert) 25 mg Q8H PRN PO DIZZINESS; Start 01/03/17 at 08:30 Phenazopyridine HCl (Pyridium) 200 mg TID PO Last administered on 01/11/17 13 :10; Admin Dose 200 MG; Start 01/03/17 at 10:00 Ranitidine HCl (Zantac) 300 mg HS PO Last administered on 01/10/17 21:16; Admin Dose 300 MG; Start 01/03/17 at 21:00 Zolpidem Tartrate (Ambien) 5 mg HS PRN PO INSOMNIA Last administered on 22:10; Admin Dose 5 MG; Start 01/03/17 at 23:00 Mupirocin (Bactroban) 1 applic BID TOP Last administered on 01/11/17 09:40; Admin Dose 1 APPLIC; Start 01/04/17 at 21:00 Hydromorphone HCl (Dilaudid) 0.2 mg Q15M PRN IV PAIN LEVEL 1-5 Last administered on 01/05/17 09:19; Admin Dose 0.2 MG; Start 01/04/17 at 20:00 Hydromorphone HCl (Dilaudid) 0.4 mg Q15M PRN IV PAIN LEVEL 6-10; Start at 20:00 Oxycodone/ Acetaminophen (Percocet (5/ 325)) 1 tab Q3H PRN PO PAIN LEVEL 1-5 Last administered on 01/10/17 12:41; Admin Dose 1 TAB; Start 01/04/17 at 20:00 Ondansetron HCl (Zofran Inj) 4 mg Q6H PRN IV NAUSEA AND/OR VOMITING; Start 01/04/17 at 20:00 Aspirin (Aspirin) 325 mg DAILY PO Last administered on 01/11/17 09:39; Admin Dose 325 MG; Start 01/05/17 at 09:00 Acetaminophen 650 mg 650 mg Q3H PRN PO ELEVATED TEMPERATURE Last administered on 01/10/17 22:10; Admin Dose 650 MG; Start 01/04/17 at 20:00 Magnesium Sulfate/ Dextrose 100 ml @ 100 mls/hr PRN PRN IVPB PENDING LAB VALUE ; Start 01/04/17 at 20:00 Cefepime HCl (Maxipime 1gm/50 ml (Pmx)) 50 ml @ 100 mls/hr Q24H IVPB Last administered on 01/11/17 07:51; Admin Dose 100 MLS/HR; Start 01/07/17 at 08:00 Amiodarone HCl (Cordarone) 200 mg BID PO Last administered on 01/11/17 09:36 ; Admin Dose 200 MG; Start 01/07/17 at 09:00 Lisinopril (Zestril) 5 mg DAILY PO Last administered on 01/11/17 09:38; Admin Dose 5 MG; Start 01/07/17 at 09:00 Metoprolol Tartrate (Lopressor) 50 mg BID PO Last administered on 01/11/17 09 :37; Admin Dose 50 MG; Start 01/07/17 at 21:00 Famotidine 20 mg 20 mg DAILY@08 PO Last administered on 10/11/17at 09:37; Admin Dose 20 MG; Start 01/10/17 at 08:00 Dextrose/Sodium Chloride (D5-NS) 1,000 ml @ 75 mls/hr [id number] IV Last administered on 01/10/17t 21:15; Admin Dose 75 MLS/HR; Start 01/10/17 at 19:00 QING LI Jan 11, 2017 17:42
[2017-01-11] MEDS ORDERED: LIDOCAINE 2% (SDV) 5 ML INJ ONE (17:50)
[2017-01-11] MEDS ORDERED: PROPOFOL 40 ML ONE (17:50)
--- NOTE | 2017-01-11 18:05 | OPPN ---
Date/Time of Note Date/Time of Note DATE: 01/11/17 TIME: 18:04 Proc Note GI Procedure Date 01/11/17 Indication: diagnostic Pre-procedure Diagnosis Dysphagia Post-procedure Diagnosis Gastritis Incomplete esophageal ring Procedure Performed: Endoscopy Surgeon see signature line [employer] none Anesthesia Type: general, MAC Anesthesiologist: QING LI Tourniquet Time none EBL none Transfusion required none Biopsy 1: None Grafts/Implants none Tubes/Drains none Complication(s) none Disposition: PACU Procedure Description EGD Gastritis incomplete esophageal ring at GE junction EVY SAUCEDA MD Jan 11, 2017 18:05
[2017-01-11] MEDS: ATORVASTATIN 40 MG TAB PO SCH (20:48)
[2017-01-11] MEDS: ZOLPIDEM 5 MG TAB PO PRN (20:49)
[2017-01-11] MEDS: AMITRIPTYLINE 25 MG TAB PO SCH (20:49)
[2017-01-11] MEDS: RANITIDINE 150 MG TAB PO SCH (20:49)
--- NOTE | 2017-01-11 22:15 | CONS ---
Date/Time of Note Date/Time of Note DATE: 01/11/17 TIME: 22:13 Assessment/Plan Assessment/Plan Chief Complaint/Hosp Course SUBJECTIVE: No events overnight. The patient is alert, looks comfortable, no fevers MICROBIOLOGY: Blood cultures had been negative. Urine culture on admission grew Pseudomonas aeruginosa. ANTIMICROBIALS: The patient is on IV cefepime day #7. She is also getting Bactroban to nares. INDWELLINGS: She has suprapubic catheter. PHYSICAL EXAMINATION: GENERAL: This is a fragile, elderly woman who is awake, in no distress. HEENT: Head atraumatic, normocephalic. Sclerae anicteric. Buccal mucosa dry. NECK: Supple. CHEST: Rise symmetrical. ABDOMEN: Soft, bowel tones present. EXTREMITIES: Without cyanosis. SKIN: With multiple bruises on her sternum and also multiple ecchymotic areas. ASSESSMENT: 1. Recurrent urinary tract infection. 2. Status post acute myocardial infarction requiring emergent coronary artery bypass graft on 01/04/2017, status post cardiopulmonary arrest. 3. Diabetes. 4. Methicillin-resistant Staphylococcus aureus nares colonization. 5. Dysphagia. PLAN: Patient remains stable. Completing abx, pending EGD today DW staff/pt Problems: Consultation Date/Type/Reason Admit Date/Time Jan 02, 2017 at 17:02 Type of Consultation: ID Referring Provider: QING LI Exam/Review of Systems Vital Signs Vitals Vital Signs Date Time Temp Pulse Resp B/P Pulse Ox O2 Delivery O2 Flow Rate FiO2 01/11/17 20:45 96 3.0 01/11/17 20:01 97.8 82 16 169/83 01/11/17 18:56 Nasal Cannula 01/09/17 13:53 32 Intake and Output 01/10/17 01/10/17 01/11/17 15:00 23:00 07:00 Intake Total 850 ml 300 ml Output Total 1000 ml 1500 ml Balance -150 ml -1200 ml Results Result Diagram: 01/08/17 0521 01/08/17 0521 Results 24 hrs Laboratory Tests Test 01/11/17 08:01 01/11/17 11:52 01/11/17 20:45 Bedside Glucose 97 93 110 Medications Medications Current Medications Morphine Sulfate (morphine) 2 mg Q2H PRN IV FOR NON CARDIAC PAIN (4-10) Last administered on 01/11/17t 15:53; Admin Dose 2 MG; Start 01/02/17 at 17:00 Clopidogrel Bisulfate (plaVIX) 75 mg DAILY PO Last administered on 01/11/17 09:38; Admin Dose 75 MG; Start 01/03/17 at 09:00 Atorvastatin Calcium (Lipitor) 40 mg HS PO Last administered on 01/11/17 20: 48; Admin Dose 40 MG; Start 01/02/17 at 21:00 Amitriptyline HCl (Elavil) 75 mg QHS PO Last administered on 01/11/17 20:49; Admin Dose 75 MG; Start 01/03/17 at 21:00 Leflunomide (Arava) 20 mg DAILY PO Last administered on 01/11/17 09:38; Admin Dose 20 MG; Start 01/03/17 at 10:00; Status Future hold Meclizine HCl (Antivert) 25 mg Q8H PRN PO DIZZINESS; Start 01/03/17 at 08:30 Phenazopyridine HCl (Pyridium) 200 mg TID PO Last administered on 01/11/17 20 :49; Admin Dose 200 MG; Start 01/03/17 at 10:00 Ranitidine HCl (Zantac) 300 mg HS PO Last administered on 01/11/17 20:49; Admin Dose 300 MG; Start 01/03/17 at 21:00 Zolpidem Tartrate (Ambien) 5 mg HS PRN PO INSOMNIA Last administered on 20:49; Admin Dose 5 MG; Start 01/03/17 at 23:00 Mupirocin (Bactroban) 1 applic BID TOP Last administered on 01/11/17 20:55; Admin Dose 1 APPLIC; Start 01/04/17 at 21:00 Hydromorphone HCl (Dilaudid) 0.2 mg Q15M PRN IV PAIN LEVEL 1-5 Last administered on 01/05/17 09:19; Admin Dose 0.2 MG; Start 01/04/17 at 20:00 Hydromorphone HCl (Dilaudid) 0.4 mg Q15M PRN IV PAIN LEVEL 6-10; Start at 20:00 Oxycodone/ Acetaminophen (Percocet (5/ 325)) 1 tab Q3H PRN PO PAIN LEVEL 1-5 Last administered on 01/10/17 12:41; Admin Dose 1 TAB; Start 01/04/17 at 20:00 Ondansetron HCl (Zofran Inj) 4 mg Q6H PRN IV NAUSEA AND/OR VOMITING; Start 01/04/17 at 20:00 Aspirin (Aspirin) 325 mg DAILY PO Last administered on 01/11/17 09:39; Admin Dose 325 MG; Start 01/05/17 at 09:00 Acetaminophen 650 mg 650 mg Q3H PRN PO ELEVATED TEMPERATURE Last administered on 01/10/17 22:10; Admin Dose 650 MG; Start 01/04/17 at 20:00 Magnesium Sulfate/ Dextrose 100 ml @ 100 mls/hr PRN PRN IVPB PENDING LAB VALUE ; Start 01/04/17 at 20:00 Cefepime HCl (Maxipime 1gm/50 ml (Pmx)) 50 ml @ 100 mls/hr Q24H IVPB Last administered on 01/11/17 07:51; Admin Dose 100 MLS/HR; Start 01/07/17 at 08:00 Amiodarone HCl (Cordarone) 200 mg BID PO Last administered on 01/11/17 20:50 ; Admin Dose 200 MG; Start 01/07/17 at 09:00 Lisinopril (Zestril) 5 mg DAILY PO Last administered on 01/11/17 09:38; Admin Dose 5 MG; Start 01/07/17 at 09:00 Metoprolol Tartrate (Lopressor) 50 mg BID PO Last administered on 01/11/17 20 :50; Admin Dose 50 MG; Start 01/07/17 at 21:00 Famotidine 20 mg 20 mg DAILY@08 PO Last administered on 01/11/17 09:37; Admin Dose 20 MG; Start 01/10/17 at 08:00 Dextrose/Sodium Chloride (D5-NS) 1,000 ml @ 75 mls/hr [id number] IV Last administered on 01/11/17 20:55; Admin Dose 75 MLS/HR; Start 01/10/17 at 19:00 WEST LIAO NP Jan 11, 2017 22:15
[2017-01-12] VITALS (12 sets, daily range): BP systolic 111–173; BP diastolic 58–79; PULSE 63–76; RESP 16–19
[2017-01-12] MEDS: morphine 2 MG INJ IV PRN ×3 (06:28→17:57)
[2017-01-12] MEDS: ACCU-CHEK XX SCH ×4 (08:25→20:37)
[2017-01-12] MEDS ORDERED: LISINOPRIL 10 MG TAB PO SCH (09:00)
--- NOTE | 2017-01-12 09:07 | OPR ---
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 The IBP was removed after all sutured released. A fem stop was placed. No bleeding noted and a good pulse was felt in right foot. JOANN HEWITT MD Jan 12, 2017 09:07
[2017-01-12] MEDS: CEFEPIME 1GM/50 ML (PMX) 50 ML IVPB SCH (09:20)
[2017-01-12] MEDS: FAMOTIDINE 20 MG TAB PO SCH (09:20)
[2017-01-12] MEDS: LEFLUNOMIDE 10 MG TAB PO SCH (09:21)
[2017-01-12] MEDS: AMIODARONE 200 MG TAB PO SCH ×2 (09:22→20:36)
[2017-01-12] MEDS: METOPROLOL 25 MG TAB PO SCH ×2 (09:23→20:36)
[2017-01-12] MEDS: PHENAZOPYRIDINE 200 MG TAB PO SCH ×3 (09:23→20:34)
[2017-01-12] MEDS: CLOPIDOGREL 75 MG TAB PO SCH (09:23)
[2017-01-12] MEDS: MUPIROCIN 2% 22 GM OINT TOP SCH ×2 (09:25→20:38)
[2017-01-12] MEDS: BALSAM PERU/CASTOR OIL 60 GM TUBE TOP SCH (09:26)
[2017-01-12] MEDS: ASPIRIN 325 MG TAB PO SCH (09:47)
--- NOTE | 2017-01-12 10:05 | CONS ---
Date/Time of Note Date/Time of Note DATE: 01/12/17 TIME: 10:03 Assessment/Plan Assessment/Plan Additional Assessment/Plan IMPRESSION: 1. Normochromic normocytic anemia. 2. Dysphagia. Persistent 3. Coronary artery disease, non-ST elevation myocardial infarction. 4. Hypertension. 5. Dyslipidemia. 6. Urinary tract infection. 7. Status post emergency coronary artery bypass graft Plan Nystatin gargle Reassured the patient that she can eat solid food without any problem Physical therapy to ambulate the patient Consultation Date/Type/Reason Admit Date/Time Jan 02, 2017 at 17:02 Initial Consult Date 01/04/17 Type of Consultation: ID Referring Provider: QING LI 24 HR Interval Summary Free Text/Dictation Still complains of for dysphagia dysphagia is confined to the cervical esophagus Exam/Review of Systems Vital Signs Vitals Vital Signs Date Time Temp Pulse Resp B/P Pulse Ox O2 Delivery O2 Flow Rate FiO2 01/12/17 09:45 79 3.0 01/12/17 08:00 76 01/12/17 07:47 98.2 18 173/79 01/11/17 20:05 Nasal Cannula 01/09/17 13:53 32 Intake and Output 01/11/17 01/11/17 01/12/17 15:00 23:00 07:00 Intake Total 100 ml 1075 ml 855 ml Output Total 980 ml 1200 ml Balance 100 ml 95 ml -345 ml Exam Constitutional: alert, oriented, well developed Psych: nl mood/affect, no complaints Head: atraumatic, normocephalic Eyes: EOMI, PERRL, nl conjunctiva, nl lids, nl sclera ENMT: nl external ears & nose, nl lips & teeth, nl nasal mucosa & septum Neck: non-tender, supple Respiratory: clear to auscultation, normal air movement Cardiovascular: nl pulses, regular rate and rhythm Gastrointestinal: nl liver, spleen, non-tender, soft Musculoskeletal: nl extremities to inspection, nl gait and stance Extremities: normal pulses Neurological: ELECTRONIC GLUER II-XII intact, nl mental status, nl speech, nl strength Skin: nl turgor, No rash or lesions Lymph: nl lymph nodes Results Result Diagram: 01/08/17 0521 01/08/17520 Results 24 hrs Laboratory Tests Test 01/11/17 11:52 01/11/17 20:45 01/12/17 08:38 Bedside Glucose 93 110 121 Medications Medications Current Medications Morphine Sulfate (morphine) 2 mg Q2H PRN IV FOR NON CARDIAC PAIN (4-10) Last administered on 01/12/17 06:28; Admin Dose 2 MG; Start 01/02/17 at 17:00 Clopidogrel Bisulfate (plaVIX) 75 mg DAILY PO Last administered on 01/12/17 09:23; Admin Dose 75 MG; Start 01/03/17 at 09:00 Atorvastatin Calcium (Lipitor) 40 mg HS PO Last administered on 01/11/17 20: 48; Admin Dose 40 MG; Start 01/02/17 at 21:00 Amitriptyline HCl (Elavil) 75 mg QHS PO Last administered on 01/11/17 20:49; Admin Dose 75 MG; Start 01/03/17 at 21:00 Leflunomide (Arava) 20 mg DAILY PO Last administered on 01/12/17 09:21; Admin Dose 20 MG; Start 01/03/17 at 10:00; Status Future hold Meclizine HCl (Antivert) 25 mg Q8H PRN PO DIZZINESS; Start 01/03/17 at 08:30 Phenazopyridine HCl (Pyridium) 200 mg TID PO Last administered on 01/12/17 09 :23; Admin Dose 200 MG; Start 01/03/17 at 10:00 Ranitidine HCl (Zantac) 300 mg HS PO Last administered on 01/11/17 20:49; Admin Dose 300 MG; Start 01/03/17 at 21:00 Zolpidem Tartrate (Ambien) 5 mg HS PRN PO INSOMNIA Last administered on 20:49; Admin Dose 5 MG; Start 01/03/17 at 23:00 Mupirocin (Bactroban) 1 applic BID TOP Last administered on 01/12/17 09:25; Admin Dose 1 APPLIC; Start 01/04/17 at 21:00 Hydromorphone HCl (Dilaudid) 0.2 mg Q15M PRN IV PAIN LEVEL 1-5 Last administered on 01/05/17 09:19; Admin Dose 0.2 MG; Start 01/04/17 at 20:00 Hydromorphone HCl (Dilaudid) 0.4 mg Q15M PRN IV PAIN LEVEL 6-10; Start at 20:00 Oxycodone/ Acetaminophen (Percocet (5/ 325)) 1 tab Q3H PRN PO PAIN LEVEL 1-5 Last administered on 01/10/17 12:41; Admin Dose 1 TAB; Start 01/04/17 at 20:00 Ondansetron HCl (Zofran Inj) 4 mg Q6H PRN IV NAUSEA AND/OR VOMITING; Start 01/04/17 at 20:00 Aspirin (Aspirin) 325 mg DAILY PO Last administered on 01/12/17 09:47; Admin Dose 325 MG; Start 01/05/17 at 09:00 Acetaminophen 650 mg 650 mg Q3H PRN PO ELEVATED TEMPERATURE Last administered on 01/10/17 22:10; Admin Dose 650 MG; Start 01/04/17 at 20:00 Magnesium Sulfate/ Dextrose 100 ml @ 100 mls/hr PRN PRN IVPB PENDING LAB VALUE ; Start 01/04/17 at 20:00 Cefepime HCl (Maxipime 1gm/50 ml (Pmx)) 50 ml @ 100 mls/hr Q24H IVPB Last administered on 01/12/17 09:20; Admin Dose 100 MLS/HR; Start 01/07/17 at 08:00 Amiodarone HCl (Cordarone) 200 mg BID PO Last administered on 01/12/17 09:22 ; Admin Dose 200 MG; Start 01/07/17 at 09:00 Metoprolol Tartrate (Lopressor) 50 mg BID PO Last administered on 01/12/17 09 :23; Admin Dose 50 MG; Start 01/07/17 at 21:00 Famotidine 20 mg 20 mg DAILY@08 PO Last administered on 01/12/17 09:20; Admin Dose 20 MG; Start 01/10/17 at 08:00 Dextrose/Sodium Chloride (D5-NS) 1,000 ml @ 75 mls/hr [id number] IV Last administered on 01/11/17 20:55; Admin Dose 75 MLS/HR; Start 01/10/17 at 19:00 Lisinopril (Zestril) 10 mg DAILY PO Last administered on 01/12/17 09:47; Admin Dose 10 MG; Start 01/12/17 at 09:00 EVY SAUCEDA MD Jan 12, 2017 10:05
--- NOTE | 2017-01-12 10:42 | CONS ---
Date/Time of Note Date/Time of Note DATE: 01/12/17 TIME: 10:42 Assessment/Plan Assessment/Plan Chief Complaint/Hosp Course Acute diastolic heart failure: EF remains preserved post CABG. Likely from IVF. Euvolemic now Paroxysmal atrial fibrillation: common post cardiac surgery. Will control with amiodarone but plan will be short term for ~1 month. Having short runs but also with some bradycardia CAD s/p CABG: emergent SHAW-LAD and SVG-RCA for proximal RCA dissection during cardiac cath NSTEMI s/p attempted PCI of RCA 01/02 and again 01/04 complicated by RCA dissection requiring emergent CABG VF arrest: in setting of RCA dissection. Cardiogenic shock: in setting of above. IABP removed. resolved Acute respiratory failure: Now extubated 01/05 HTN HL Chronic suprapubic catheter Bladder surgery Dysphagia: EGD showed a small esophageal ring but no mass UTI -dispo planning. Pt does not want SNF but likely best option for her per my discussion with her [id number] Ariana Den -metoprolol 25mg BID -amiodarone 200mg BID -ASA, plavix -lipitor -lisinopril 5mg daily Problems: Consultation Date/Type/Reason Admit Date/Time Jan 02, 2017 at 17:02 Type of Consultation: Cardiology Referring Provider: QING LI 24 HR Interval Summary Free Text/Dictation s/p EGD with esophageal ring at GE junction. Still with brief runs of afib. Otherwise no complaints. Exam/Review of Systems Vital Signs Vitals Vital Signs Date Time Temp Pulse Resp B/P Pulse Ox O2 Delivery O2 Flow Rate FiO2 01/12/17 09:45 79 3.0 01/12/17 08:00 76 01/12/17 07:47 98.2 18 173/79 01/11/17 20:05 Nasal Cannula 01/09/17 13:53 32 Intake and Output 01/11/17 01/11/17 01/12/17 15:00 23:00 07:00 Intake Total 100 ml 1075 ml 855 ml Output Total 980 ml 1200 ml Balance 100 ml 95 ml -345 ml Exam Constitutional: alert, oriented Psych: nl mood/affect, no complaints Head: atraumatic, normocephalic Neck: No jvd Respiratory: clear to auscultation, No crackles/rales Cardiovascular: regular rate and rhythm, No edema Gastrointestinal: non-tender, soft, No distended Neurological: nl mental status, nl speech Results Result Diagram: 01/08/1752001/08/17520 Results 24 hrs Laboratory Tests Test 01/11/17 11:52 01/11/17 20:45 01/12/17 08:38 Bedside Glucose 93 110 121 Medications Medications Current Medications Morphine Sulfate (morphine) 2 mg Q2H PRN IV FOR NON CARDIAC PAIN (4-10) Last administered on 01/12/17 06:28; Admin Dose 2 MG; Start 01/02/17 at 17:00 Clopidogrel Bisulfate (plaVIX) 75 mg DAILY PO Last administered on 01/12/17 09:23; Admin Dose 75 MG; Start 01/03/17 at 09:00 Atorvastatin Calcium (Lipitor) 40 mg HS PO Last administered on 01/11/17 20: 48; Admin Dose 40 MG; Start 01/02/17 at 21:00 Amitriptyline HCl (Elavil) 75 mg QHS PO Last administered on 01/11/17 20:49; Admin Dose 75 MG; Start 01/03/17 at 21:00 Leflunomide (Arava) 20 mg DAILY PO Last administered on 01/12/17 09:21; Admin Dose 20 MG; Start 01/03/17 at 10:00; Status Future hold Meclizine HCl (Antivert) 25 mg Q8H PRN PO DIZZINESS; Start 01/03/17 at 08:30 Phenazopyridine HCl (Pyridium) 200 mg TID PO Last administered on 01/12/17 09 :23; Admin Dose 200 MG; Start 01/03/17 at 10:00 Ranitidine HCl (Zantac) 300 mg HS PO Last administered on 01/11/17 20:49; Admin Dose 300 MG; Start 01/03/17 at 21:00 Zolpidem Tartrate (Ambien) 5 mg HS PRN PO INSOMNIA Last administered on 20:49; Admin Dose 5 MG; Start 01/03/17 at 23:00 Mupirocin (Bactroban) 1 applic BID TOP Last administered on 01/12/17 09:25; Admin Dose 1 APPLIC; Start 01/04/17 at 21:00 Hydromorphone HCl (Dilaudid) 0.2 mg Q15M PRN IV PAIN LEVEL 1-5 Last administered on 01/05/17 09:19; Admin Dose 0.2 MG; Start 01/04/17 at 20:00 Hydromorphone HCl (Dilaudid) 0.4 mg Q15M PRN IV PAIN LEVEL 6-10; Start at 20:00 Oxycodone/ Acetaminophen (Percocet (5/ 325)) 1 tab Q3H PRN PO PAIN LEVEL 1-5 Last administered on 01/10/17 12:41; Admin Dose 1 TAB; Start 01/04/17 at 20:00 Ondansetron HCl (Zofran Inj) 4 mg Q6H PRN IV NAUSEA AND/OR VOMITING; Start 01/04/17 at 20:00 Aspirin (Aspirin) 325 mg DAILY PO Last administered on 01/12/17 09:47; Admin Dose 325 MG; Start 01/05/17 at 09:00 Acetaminophen 650 mg 650 mg Q3H PRN PO ELEVATED TEMPERATURE Last administered on 01/10/17 22:10; Admin Dose 650 MG; Start 01/04/17 at 20:00 Magnesium Sulfate/ Dextrose 100 ml @ 100 mls/hr PRN PRN IVPB PENDING LAB VALUE ; Start 01/04/17 at 20:00 Cefepime HCl (Maxipime 1gm/50 ml (Pmx)) 50 ml @ 100 mls/hr Q24H IVPB Last administered on 01/12/17 09:20; Admin Dose 100 MLS/HR; Start 01/07/17 at 08:00 Amiodarone HCl (Cordarone) 200 mg BID PO Last administered on 01/12/17 09:22 ; Admin Dose 200 MG; Start 01/07/17 at 09:00 Metoprolol Tartrate (Lopressor) 50 mg BID PO Last administered on 01/12/17 09 :23; Admin Dose 50 MG; Start 01/07/17 at 21:00 Famotidine 20 mg 20 mg DAILY@08 PO Last administered on 01/12/17 09:20; Admin Dose 20 MG; Start 01/10/17 at 08:00 Dextrose/Sodium Chloride (D5-NS) 1,000 ml @ 75 mls/hr [id number] IV Last administered on 01/11/17 20:55; Admin Dose 75 MLS/HR; Start 01/10/17 at 19:00 Lisinopril (Zestril) 10 mg DAILY PO Last administered on 01/12/17 09:47; Admin Dose 10 MG; Start 01/12/17 at 09:00 Nystatin (Nystatin Susp) 5 ml QID PO ; Start 01/12/17 at 13:00 QING LI Jan 12, 2017 10:42
[2017-01-12] MEDS: DEXTROSE 5%-0.9% NACL 1,000 ML IV SCH ×2 (11:00→23:45)
[2017-01-12] MEDS: NYSTATIN SUSP 5 ML CUP PO SCH ×3 (13:09→20:34)
--- NOTE | 2017-01-12 13:28 | RADRPT ---
Vent Rate: 93 bpm RR Interval: 0 msec WV Interval: 120 msec QRS Duration: 102 msec QT Interval: 396 msec QTC Interval: 492 msec P-R-T Industry: 48 - -17 - 75 degrees Normal sinus rhythm Nonspecific T wave abnormality Prolonged QT Abnormal ECG Electronically Signed By: Tommie Gibson [id number]
--- NOTE | 2017-01-12 14:14 | CONS ---
Date/Time of Note Date/Time of Note DATE: 01/12/17 TIME: 14:13 Consult Date/Type/Reason Admit Date/Time Jan 02, 2017 at 17:02 Type of Consultation: ID Ordering Provider: QING LI Objective Vital Signs Date Time Temp Pulse Resp B/P Pulse Ox O2 Delivery O2 Flow Rate FiO2 01/12/17 12:00 66 01/12/17 11:54 97.8 19 170/76 96 01/12/17 09:45 3.0 01/11/17 20:05 Nasal Cannula 01/09/17 13:53 32 Intake and Output 01/11/17 01/11/17 01/12/17 15:00 23:00 07:00 Intake Total 100 ml 1075 ml 855 ml Output Total 980 ml 1200 ml Balance 100 ml 95 ml -345 ml Results/Medications Result Diagram: 01/08/1752001/08/17520 Results 24 hrs Laboratory Tests Test 01/11/17 20:45 01/12/17 08:38 01/12/17 12:45 Bedside Glucose 110 121 105 Medications Current Medications Morphine Sulfate (morphine) 2 mg Q2H PRN IV FOR NON CARDIAC PAIN (4-10) Last administered on 01/12/17 06:28; Admin Dose 2 MG; Start 01/02/17 at 17:00 Clopidogrel Bisulfate (plaVIX) 75 mg DAILY PO Last administered on 01/12/17 09:23; Admin Dose 75 MG; Start 01/03/17 at 09:00 Atorvastatin Calcium (Lipitor) 40 mg HS PO Last administered on 01/11/17 20: 48; Admin Dose 40 MG; Start 01/02/17 at 21:00 Amitriptyline HCl (Elavil) 75 mg QHS PO Last administered on 01/11/17 20:49; Admin Dose 75 MG; Start 01/03/17 at 21:00 Leflunomide (Arava) 20 mg DAILY PO Last administered on 01/12/17 09:21; Admin Dose 20 MG; Start 01/03/17 at 10:00; Status Future hold Meclizine HCl (Antivert) 25 mg Q8H PRN PO DIZZINESS; Start 01/03/17 at 08:30 Phenazopyridine HCl (Pyridium) 200 mg TID PO Last administered on 01/12/17 13 :08; Admin Dose 200 MG; Start 01/03/17 at 10:00 Ranitidine HCl (Zantac) 300 mg HS PO Last administered on 01/11/17 20:49; Admin Dose 300 MG; Start 01/03/17 at 21:00 Zolpidem Tartrate (Ambien) 5 mg HS PRN PO INSOMNIA Last administered on 20:49; Admin Dose 5 MG; Start 01/03/17 at 23:00 Mupirocin (Bactroban) 1 applic BID TOP Last administered on 01/12/17 09:25; Admin Dose 1 APPLIC; Start 01/04/17 at 21:00 Hydromorphone HCl (Dilaudid) 0.2 mg Q15M PRN IV PAIN LEVEL 1-5 Last administered on 01/05/17 09:19; Admin Dose 0.2 MG; Start 01/04/17 at 20:00 Hydromorphone HCl (Dilaudid) 0.4 mg Q15M PRN IV PAIN LEVEL 6-10; Start at 20:00 Oxycodone/ Acetaminophen (Percocet (5/ 325)) 1 tab Q3H PRN PO PAIN LEVEL 1-5 Last administered on 01/10/17 12:41; Admin Dose 1 TAB; Start 01/04/17 at 20:00 Ondansetron HCl (Zofran Inj) 4 mg Q6H PRN IV NAUSEA AND/OR VOMITING; Start 01/04/17 at 20:00 Aspirin (Aspirin) 325 mg DAILY PO Last administered on 01/12/17 09:47; Admin Dose 325 MG; Start 01/05/17 at 09:00 Acetaminophen 650 mg 650 mg Q3H PRN PO ELEVATED TEMPERATURE Last administered on 01/10/17 22:10; Admin Dose 650 MG; Start 01/04/17 at 20:00 Magnesium Sulfate/ Dextrose 100 ml @ 100 mls/hr PRN PRN IVPB PENDING LAB VALUE ; Start 01/04/17 at 20:00 Cefepime HCl (Maxipime 1gm/50 ml (Pmx)) 50 ml @ 100 mls/hr Q24H IVPB Last administered on 01/12/17 09:20; Admin Dose 100 MLS/HR; Start 01/07/17 at 08:00 Amiodarone HCl (Cordarone) 200 mg BID PO Last administered on 01/12/17 09:22 ; Admin Dose 200 MG; Start 01/07/17 at 09:00 Metoprolol Tartrate (Lopressor) 50 mg BID PO Last administered on 01/12/17 09 :23; Admin Dose 50 MG; Start 01/07/17 at 21:00 Famotidine 20 mg 20 mg DAILY@08 PO Last administered on 01/12/17 09:20; Admin Dose 20 MG; Start 01/10/17 at 08:00 Dextrose/Sodium Chloride (D5-NS) 1,000 ml @ 75 mls/hr [id number] IV Last administered on 01/11/17 20:55; Admin Dose 75 MLS/HR; Start 01/10/17 at 19:00 Lisinopril (Zestril) 10 mg DAILY PO Last administered on 01/12/17 09:47; Admin Dose 10 MG; Start 01/12/17 at 09:00 Nystatin (Nystatin Susp) 5 ml QID PO Last administered on 01/12/17 13:09; Admin Dose 5 ML; Start 01/12/17 at 13:00 Assessment/Plan Chief Complaint/Hosp Course SUBJECTIVE: No events overnight. The patient is sleeping, looks comfortable, no fevers MICROBIOLOGY: Blood cultures had been negative. Urine culture on admission grew Pseudomonas aeruginosa. ANTIMICROBIALS: The patient is on IV cefepime day #8. She is also getting Bactroban to nares. INDWELLINGS: She has suprapubic catheter. PHYSICAL EXAMINATION: GENERAL: This is a fragile, elderly woman who is awake, in no distress. HEENT: Head atraumatic, normocephalic. Sclerae anicteric. Buccal mucosa dry. NECK: Supple. CHEST: Rise symmetrical. ABDOMEN: Soft, bowel tones present. EXTREMITIES: Without cyanosis. SKIN: With multiple bruises on her sternum and also multiple ecchymotic areas. ASSESSMENT: 1. Recurrent urinary tract infection. 2. Status post acute myocardial infarction requiring emergent coronary artery bypass graft on 01/04/2017, status post cardiopulmonary arrest. 3. Diabetes. 4. Methicillin-resistant Staphylococcus aureus nares colonization. 5. Dysphagia==>Gastritis, incomplete esophageal ring at GE junction per EGD . PLAN: Patient remains stable. Dc abx, continue present care, aspiration precautions, GI rec-s note [facility] staff/pt Problems: WEST LIAO NP Jan 12, 2017 14:14
--- NOTE | 2017-01-12 14:35 | CONS ---
Date/Time of Note Date/Time of Note DATE: 01/12/17 TIME: 14:34 Consult Date/Type/Reason Admit Date/Time Jan 02, 2017 at 17:02 Initial Consult Date 01/05/17 Type of Consultation: nephrology Ordering Provider: QING LI The patient is currently in Tele. D/W cardiology. The patient was extubated on 01/05. No other events noted, no hemoptysis, hemetemesis, hematuria, fever, diaphoresis, new rash, hematochezia. good uop with lasix imaging studies were reviewed has dysphagia s/p egd OBJECTIVE: HEENT: Head is normocephalic. NECK: Supple. HEART: Regular rate. LUNGS: Show diminished breath sounds at base. ABDOMEN: Soft, nontender to palpation. No rebound or guarding. EXTREMITIES: Negative for clubbing, cyanosis, or edema. DERMATOLOGIC: No rashes. MUSCULOSKELETAL: No joint effusions. NEUROLOGIC: Limited. Objective Vital Signs Date Time Temp Pulse Resp B/P Pulse Ox O2 Delivery O2 Flow Rate FiO2 01/12/17 12:00 66 01/12/17 11:54 97.8 19 170/76 96 01/12/17 09:45 3.0 01/11/17 20:05 Nasal Cannula 01/09/17 13:53 32 Intake and Output 01/11/17 01/11/17 01/12/17 15:00 23:00 07:00 Intake Total 100 ml 1075 ml 855 ml Output Total 980 ml 1200 ml Balance 100 ml 95 ml -345 ml Results/Medications Result Diagram: 01/08/17 0521 01/08/17 0521 Results 24 hrs Laboratory Tests Test 01/11/17 20:45 01/12/17 08:38 01/12/17 12:45 Bedside Glucose 110 121 105 Medications Current Medications Morphine Sulfate (morphine) 2 mg Q2H PRN IV FOR NON CARDIAC PAIN (4-10) Last administered on 01/12/17 06:28; Admin Dose 2 MG; Start 01/02/17 at 17:00 Clopidogrel Bisulfate (plaVIX) 75 mg DAILY PO Last administered on 01/12/17 09:23; Admin Dose 75 MG; Start 01/03/17 at 09:00 Atorvastatin Calcium (Lipitor) 40 mg HS PO Last administered on 01/11/17 20: 48; Admin Dose 40 MG; Start 01/02/17 at 21:00 Amitriptyline HCl (Elavil) 75 mg QHS PO Last administered on 01/11/17 20:49; Admin Dose 75 MG; Start 01/03/17 at 21:00 Leflunomide (Arava) 20 mg DAILY PO Last administered on 01/12/17 09:21; Admin Dose 20 MG; Start 01/03/17 at 10:00; Status Future hold Meclizine HCl (Antivert) 25 mg Q8H PRN PO DIZZINESS; Start 01/03/17 at 08:30 Phenazopyridine HCl (Pyridium) 200 mg TID PO Last administered on 01/12/17 13 :08; Admin Dose 200 MG; Start 01/03/17 at 10:00 Ranitidine HCl (Zantac) 300 mg HS PO Last administered on 01/11/17 20:49; Admin Dose 300 MG; Start 01/03/17 at 21:00 Zolpidem Tartrate (Ambien) 5 mg HS PRN PO INSOMNIA Last administered on 20:49; Admin Dose 5 MG; Start 01/03/17 at 23:00 Mupirocin (Bactroban) 1 applic BID TOP Last administered on 01/12/17 09:25; Admin Dose 1 APPLIC; Start 01/04/17 at 21:00 Hydromorphone HCl (Dilaudid) 0.2 mg Q15M PRN IV PAIN LEVEL 1-5 Last administered on 01/05/17 09:19; Admin Dose 0.2 MG; Start 01/04/17 at 20:00 Hydromorphone HCl (Dilaudid) 0.4 mg Q15M PRN IV PAIN LEVEL 6-10; Start at 20:00 Oxycodone/ Acetaminophen (Percocet (5/ 325)) 1 tab Q3H PRN PO PAIN LEVEL 1-5 Last administered on 01/10/17 12:41; Admin Dose 1 TAB; Start 01/04/17 at 20:00 Ondansetron HCl (Zofran Inj) 4 mg Q6H PRN IV NAUSEA AND/OR VOMITING; Start 01/04/17 at 20:00 Aspirin (Aspirin) 325 mg DAILY PO Last administered on 01/12/17 09:47; Admin Dose 325 MG; Start 01/05/17 at 09:00 Acetaminophen 650 mg 650 mg Q3H PRN PO ELEVATED TEMPERATURE Last administered on 01/10/17 22:10; Admin Dose 650 MG; Start 01/04/17 at 20:00 Magnesium Sulfate/ Dextrose (Magnesium Sulfate 1 Gm/D5W) 100 ml @ 100 mls/hr PRN PRN IVPB PENDING LAB VALUE; Start 01/04/17 at 20:00 Amiodarone HCl (Cordarone) 200 mg BID PO Last administered on 01/12/17 09:22 ; Admin Dose 200 MG; Start 01/07/17 at 09:00 Metoprolol Tartrate (Lopressor) 50 mg BID PO Last administered on 01/12/17 09 :23; Admin Dose 50 MG; Start 01/07/17 at 21:00 Famotidine 20 mg 20 mg DAILY@08 PO Last administered on 01/12/17 09:20; Admin Dose 20 MG; Start 01/10/17 at 08:00 Dextrose/Sodium Chloride (D5-NS) 1,000 ml @ 75 mls/hr [id number] IV Last administered on 01/11/17 20:55; Admin Dose 75 MLS/HR; Start 01/10/17 at 19:00 Lisinopril (Zestril) 10 mg DAILY PO Last administered on 01/12/17 09:47; Admin Dose 10 MG; Start 01/12/17 at 09:00 Nystatin (Nystatin Susp) 5 ml QID PO Last administered on 01/12/17 13:09; Admin Dose 5 ML; Start 01/12/17 at 13:00 Assessment/Plan Chief Complaint/Hosp Course 1. Coronary artery disease, status post coronary artery bypass graft performed emergently 2-vessel. Continue current treatment plan. 2. Non-ST elevation myocardial infarction, status post cardiac catheterization with complications including RCA dissection requiring emergent coronary artery bypass graft. continue acei, asa, b-osmar 3. Status post cardiac arrest with spontaneous return of circulation. Continue to monitor. 4. Hypertension. BP is now at target 5. Respiratory failure, status post extubation. Currently the patient is currently stable. 6. Anemia. check iron panel. no transfusion yet 7. Leukocytosis, likely reactive. The patient is on antibiotic therapy, continue to monitor. Follow up with infectious disease. 8 Dysphagia. Continue speech therapy. may need tube-feeding if she continues to lose weight 9. Diabetes. Continue current insulin regimen. 10. History of rheumatoid arthritis. Resume medications Novara. 11. Depression. Continue Elavil. 12. Gastrointestinal and deep venous thrombosis prophylaxis. Problems: JASMIN BLAKE MD Jan 12, 2017 14:35
[2017-01-12] MEDS: RANITIDINE 150 MG TAB PO SCH (20:35)
[2017-01-12] MEDS: ATORVASTATIN 40 MG TAB PO SCH (20:35)
[2017-01-12] MEDS: AMITRIPTYLINE 25 MG TAB PO SCH (20:36)
[2017-01-12] MEDS: OXYCODONE/ACETAMINOPHEN (5/325) TAB PO PRN (20:46)
[2017-01-12] MEDS: ZOLPIDEM 5 MG TAB PO PRN (20:53)
[2017-01-13] VITALS (10 sets, daily range): BP systolic 124–178; BP diastolic 58–79; PULSE 66–80; RESP 16–18
[2017-01-13 06:13] LABS: BASOPHIL # 0.1 10^3/ul (0.0-0.1); BASOPHILS % 1.1 % (0.0-2.0); EOSINOPHILS # 0.1 10^3/ul (0.0-0.5); EOSINOPHILS % 0.9 % (0.0-7.0); HEMATOCRIT 33.1 % (37.0-47.0); HEMOGLOBIN 10.3 g/dl (12.0-16.0); LYMPHOCYTES # 1.3 10^3/ul (0.8-2.9); LYMPHOCYTES % 15.7 % (15.0-51.0); MEAN CORPUSCULAR HEMOGLOBIN 29.1 pg (29.0-33.0); MEAN CORPUSCULAR HGB CONC 31.1 g/dl (32.0-37.0); MEAN CORPUSCULAR VOLUME 93.5 fl (82.0-101.0); MEAN PLATELET VOLUME 9.7 fl (7.4-10.4); MONOCYTE # 1.3 10^3/ul (0.3-0.9); MONOCYTES % 15.2 % (0.0-11.0); NEUTROPHIL # 5.3 10^3/ul (1.6-7.5); NEUTROPHILS % 62.6 % (39.0-77.0); PLATELET COUNT 144 10^3/UL (140-415); RED BLOOD COUNT 3.54 10^6/ul (4.20-5.40); RED CELL DISTRIBUTION WIDTH 18.6 % (11.5-14.5); WHITE BLOOD COUNT 8.5 10^3/ul (4.8-10.8)
[2017-01-13 06:29] LABS: CALCIUM 8.4 mg/dl (8.4-10.2); CREATININE 0.62 mg/dl (0.44-1.00); POTASSIUM 3.7 mmol/L (3.5-5.1)
--- NOTE | 2017-01-13 07:20 | GILP ---
DATE OF PROCEDURE: INDICATION: A 76-year-old female undergoing this procedure for dysphagia for the last 2 to 3 weeks. She is unable to swallow solid food. The risk of the procedure, related and unrelated complicatio ns, anesthetic risks, alternatives were thoroughly discussed with the patient and informed consent w as obtained. Cardiology clearance also was obtained. DESCRIPTION OF PROCEDURE: The patient was brought to the GI lab, sedated by Dr. Turner. After appr opriate sedation, scope was passed with much ease into esophagus which was grossly within normal holt its except for an incomplete ring at gastroesophageal junction. The lumen was somewhat narrowed, bu t did not offer resistance to the passage of the scope. Stomach mucosa revealed gastritis. Duodenu m, first and second part was within normal limits. No biopsy was taken because patient was on aspir in and Plavix. Retroversion done, no growth was seen. Scope was straightened out and removed with good patient tolerance. IMPRESSION: 1. Normal esophagus. 2. Incomplete Schatzki's ring at the GE junction. 3. Gastritis. 4. Normal duodenum. PLAN: Reassure the patient. Continue proton pump inhibitor. Patient might need a nystatin gargle for her coated tongue. Dictated By: EVY ANDERSON/RONALD Conf#: [id number] DID#: [id number]
[2017-01-13] MEDS: ACCU-CHEK XX SCH ×3 (07:25→17:25)
[2017-01-13] MEDS: CLOPIDOGREL 75 MG TAB PO SCH (08:39)
[2017-01-13] MEDS: ASPIRIN 325 MG TAB PO SCH (08:39)
[2017-01-13] MEDS: ACETAMINOPHEN 325 MG TAB PO PRN ×2 (08:40→18:30)
[2017-01-13] MEDS: METOPROLOL 25 MG TAB PO SCH (08:40)
--- NOTE | 2017-01-13 08:40 | CONS ---
Date/Time of Note Date/Time of Note DATE: 01/13/17 TIME: 08:38 Assessment/Plan Assessment/Plan Chief Complaint/Hosp Course Acute diastolic heart failure: EF remains preserved post CABG. Likely from IVF. Euvolemic now Paroxysmal atrial fibrillation: common post cardiac surgery. Will control with amiodarone but plan will be short term for ~1 month. Having short runs but also with some bradycardia CAD s/p CABG: emergent SHAW-LAD and SVG-RCA for proximal RCA dissection during cardiac cath NSTEMI s/p attempted PCI of RCA 01/02 and again 01/04 complicated by RCA dissection requiring emergent CABG VF arrest: in setting of RCA dissection. Cardiogenic shock: in setting of above. IABP removed. resolved Acute respiratory failure: Now extubated 01/05 HTN HL Chronic suprapubic catheter Bladder surgery Dysphagia: EGD showed a small esophageal ring but no mass UTI -dispo planning. Pt does not want SNF but likely best option for her per my discussion with her [id number] Ariana Crenshaw -metoprolol 25mg BID -amiodarone 200mg BID -ASA, plavix -lipitor -increase to lisinopril 20mg daily Problems: Consultation Date/Type/Reason Admit Date/Time Jan 02, 2017 at 17:02 Type of Consultation: Cardiology Referring Provider: QING LI 24 HR Interval Summary Free Text/Dictation No o/n events. BP has been high. No complaints. No arrhythmias on tele Exam/Review of Systems Vital Signs Vitals Vital Signs Date Time Temp Pulse Resp B/P Pulse Ox O2 Delivery O2 Flow Rate FiO2 01/13/17 08:14 97.6 84 18 167/79 91 01/13/17 04:31 3.0 01/12/17 20:10 Nasal Cannula 01/09/17 13:53 32 Intake and Output 01/12/17 01/12/17 01/13/17 15:00 23:00 07:00 Intake Total 1425 ml 500 ml Output Total 580 ml 400 ml Balance 845 ml 100 ml Exam Constitutional: alert, oriented Psych: nl mood/affect, no complaints Head: atraumatic, normocephalic Neck: No jvd Respiratory: clear to auscultation, No crackles/rales Cardiovascular: regular rate and rhythm, No edema Gastrointestinal: non-tender, soft Neurological: nl mental status, nl speech Results Result Diagram: 01/13/17 0546 01/13/17 0546 Results 24 hrs Laboratory Tests Test 01/12/17 12:45 01/12/17 17:29 01/12/17 20:32 01/13/17 05:46 Bedside Glucose 105 86 99 White Blood Count 8.5 # Red Blood Count 3.54 L Hemoglobin 10.3 L Hematocrit 33.1 L Mean Corpuscular Volume 93.5 Mean Corpuscular Hemoglobin 29.1 Mean Corpuscular Hemoglobin Concent 31.1 L Red Cell Distribution Width 18.6 H Platelet Count 144 Mean Platelet Volume 9.7 Neutrophils % 62.6 Lymphocytes % 15.7 Monocytes % 15.2 H Eosinophils % 0.9 Basophils % 1.1 Nucleated Red Blood Cells % 0.0 Neutrophils # 5.3 Lymphocytes # 1.3 Monocytes # 1.3 H Eosinophils # 0.1 Basophils # 0.1 Nucleated Red Blood Cells # 0.0 Sodium Level 135 Potassium Level 3.7 Chloride Level 105 Carbon Dioxide Level 27 Anion Gap 7 L Blood Urea Nitrogen 7 Creatinine 0.62 Glucose Level 118 Calcium Level 8.4 Medications Medications Current Medications Morphine Sulfate (morphine) 2 mg Q2H PRN IV FOR NON CARDIAC PAIN (4-10) Last administered on 01/12/17 17:57; Admin Dose 2 MG; Start 01/02/17 at 17:00 Clopidogrel Bisulfate (plaVIX) 75 mg DAILY PO Last administered on 01/12/17 09:23; Admin Dose 75 MG; Start 01/03/17 at 09:00 Atorvastatin Calcium (Lipitor) 40 mg HS PO Last administered on 01/12/17 20: 35; Admin Dose 40 MG; Start 01/02/17 at 21:00 Amitriptyline HCl (Elavil) 75 mg QHS PO Last administered on 01/12/17 20:36; Admin Dose 75 MG; Start 01/03/17 at 21:00 Leflunomide (Arava) 20 mg DAILY PO Last administered on 01/12/17 09:21; Admin Dose 20 MG; Start 01/03/17 at 10:00; Status Future hold Meclizine HCl (Antivert) 25 mg Q8H PRN PO DIZZINESS; Start 01/03/17 at 08:30 Phenazopyridine HCl (Pyridium) 200 mg TID PO Last administered on 01/12/17 20 :34; Admin Dose 200 MG; Start 01/03/17 at 10:00 Ranitidine HCl (Zantac) 300 mg HS PO Last administered on 01/12/17 20:35; Admin Dose 300 MG; Start 01/03/17 at 21:00 Zolpidem Tartrate (Ambien) 5 mg HS PRN PO INSOMNIA Last administered on 20:53; Admin Dose 5 MG; Start 01/03/17 at 23:00 Mupirocin (Bactroban) 1 applic BID TOP Last administered on 01/12/17 20:38; Admin Dose 1 APPLIC; Start 01/04/17 at 21:00 Hydromorphone HCl (Dilaudid) 0.2 mg Q15M PRN IV PAIN LEVEL 1-5 Last administered on 01/05/17 09:19; Admin Dose 0.2 MG; Start 01/04/17 at 20:00 Hydromorphone HCl (Dilaudid) 0.4 mg Q15M PRN IV PAIN LEVEL 6-10; Start at 20:00 Oxycodone/ Acetaminophen (Percocet (5/ 325)) 1 tab Q3H PRN PO PAIN LEVEL 1-5 Last administered on 01/12/17 20:46; Admin Dose 1 TAB; Start 01/04/17 at 20:00 Ondansetron HCl (Zofran Inj) 4 mg Q6H PRN IV NAUSEA AND/OR VOMITING; Start 01/04/17 at 20:00 Aspirin (Aspirin) 325 mg DAILY PO Last administered on 01/12/17 09:47; Admin Dose 325 MG; Start 01/05/17 at 09:00 Acetaminophen 650 mg 650 mg Q3H PRN PO ELEVATED TEMPERATURE Last administered on 01/10/17 22:10; Admin Dose 650 MG; Start 01/04/17 at 20:00 Magnesium Sulfate/ Dextrose (Magnesium Sulfate 1 Gm/D5W) 100 ml @ 100 mls/hr PRN PRN IVPB PENDING LAB VALUE; Start 01/04/17 at 20:00 Amiodarone HCl (Cordarone) 200 mg BID PO Last administered on 01/12/17 20:36 ; Admin Dose 200 MG; Start 01/07/17 at 09:00 Metoprolol Tartrate (Lopressor) 50 mg BID PO Last administered on 01/12/17 20 :36; Admin Dose 50 MG; Start 01/07/17 at 21:00 Famotidine 20 mg 20 mg DAILY@08 PO Last administered on 01/12/17 09:20; Admin Dose 20 MG; Start 01/10/17 at 08:00 Dextrose/Sodium Chloride (D5-NS) 1,000 ml @ 75 mls/hr [id number] IV Last administered on 01/12/17 23:45; Admin Dose 75 MLS/HR; Start 01/10/17 at 19:00 Nystatin (Nystatin Susp) 5 ml QID PO Last administered on 01/12/17 20:34; Admin Dose 5 ML; Start 01/12/17 at 13:00 Lisinopril (Zestril) 20 mg DAILY PO ; Start 01/13/17 at 09:00 QING LI Jan 13, 2017 08:40
[2017-01-13] MEDS: LEFLUNOMIDE 10 MG TAB PO SCH (08:41)
[2017-01-13] MEDS: AMIODARONE 200 MG TAB PO SCH (08:41)
[2017-01-13] MEDS: PHENAZOPYRIDINE 200 MG TAB PO SCH ×2 (08:41→12:30)
[2017-01-13] MEDS: FAMOTIDINE 20 MG TAB PO SCH (08:41)
[2017-01-13] MEDS: NYSTATIN SUSP 5 ML CUP PO SCH ×3 (08:43→17:00)
[2017-01-13] MEDS: MUPIROCIN 2% 22 GM OINT TOP SCH (08:44)
[2017-01-13] MEDS: BALSAM PERU/CASTOR OIL 60 GM TUBE TOP SCH (08:44)
[2017-01-13] MEDS ORDERED: LISINOPRIL 20 MG TAB PO SCH (09:00)
[2017-01-13] MEDS ORDERED: AMIO200T2 PO (10:59)
[2017-01-13] MEDS ORDERED: LISI20TA11 PO (10:59)
[2017-01-13] MEDS ORDERED: CLOP75TA28 PO (10:59)
[2017-01-13] MEDS ORDERED: METO-448 PO (10:59)
[2017-01-13] MEDS ORDERED: Accu-Chek XX (10:59)
[2017-01-13] MEDS ORDERED: OXYC-438 PO (10:59)
[2017-01-13] MEDS ORDERED: BALS60OI TOP (10:59)
[2017-01-13] MEDS ORDERED: ASPI325T4 PO (10:59)
[2017-01-13] MEDS ORDERED: ZOLP5TAB PO (10:59)
--- NOTE | 2017-01-13 11:00 | DS ---
Date/Time of Note Date/Time of Note DATE: 01/13/17 TIME: 11:00 Discharge Summary Admission/Discharge Info Admit Date/Time Jan 02, 2017 at 17:02 Discharge Date/Time Patient Condition: Fair Hospital Course Acute diastolic heart failure: EF remains preserved post CABG. Likely from IVF. Euvolemic now Paroxysmal atrial fibrillation: common post cardiac surgery. Will control with amiodarone but plan will be short term for ~1 month. Having short runs but also with some bradycardia CAD s/p CABG: emergent SHAW-LAD and SVG-RCA for proximal RCA dissection during cardiac cath NSTEMI s/p attempted PCI of RCA 01/02 and again 01/04 complicated by RCA dissection requiring emergent CABG VF arrest: in setting of RCA dissection. Cardiogenic shock: in setting of above. IABP removed. resolved Acute respiratory failure: Now extubated 01/05 HTN HL Chronic suprapubic catheter Bladder surgery Dysphagia: EGD showed a small esophageal ring but no mass UTI -dispo planning. Pt does not want SNF but likely best option for her per my discussion with her [id number] Arianalisa Crenshaw -metoprolol 25mg BID -amiodarone 200mg BID -ASA, plavix -lipitor -increase to lisinopril 20mg daily Home Meds Active Scripts Balsam Mónica/Nicholson Oil (Venelex Ointment) 60 Gm Oint..gm., 1 APPLIC TOP DAILY for 7 Days Prov:JASMIN BLAKE MD 01/13/17 [Accu-Chek] 1 EA EA No Conflict Check, 1 EA XX AC MEALS AND BEDTIME Prov:JASMIN BLAKE MD 01/13/17 Zolpidem Tartrate (Ambien Dilip) 5 Mg Tablet, 5 MG PO HS Y for INSOMNIA for 30 Days, TAB Prov:JASMIN BLAKE MD 01/13/17 Oxycodone HCl/Acetaminophen (Oxycodone-Acetaminophen 5-325) 1 Each Tablet, 1 TAB PO Q3H Y for PAIN LEVEL 1-5 for 60 Days, TAB Prov:JASMIN BLAKE MD 01/13/17 Aspirin (Aspirin Lite-Coat) 325 Mg Tablet, 325 MG PO DAILY for 30 Days, TAB Prov:JASMIN BLAKE MD 01/13/17 Metoprolol Tartrate* (Lopressor*) 25 Mg Tab, 50 MG PO BID for 90 Days, TAB Prov:JASMIN BLAKE MD 01/13/17 Lisinopril* (Lisinopril*) 20 Mg Tablet, 20 MG PO DAILY for 90 Days, TAB Prov:JASMIN BLAKE MD 01/13/17 Amiodarone Hcl* (Amiodarone Hcl*) 200 Mg Tablet, 200 MG PO BID for 90 Days, TAB Prov:JASMIN BLAKE MD 01/13/17 Clopidogrel Bisulfate (Clopidogrel) 75 Mg Tablet, 75 MG PO DAILY for 28 Days, TAB Prov:JASMIN BLAKE MD 01/13/17 Reported Medications Amitriptyline Hcl* (Amitriptyline Hcl*) 75 Mg Tablet, 75 MG PO QHS, #30 TAB 01/02/17 Ciprofloxacin Hcl* (Ciprofloxacin Hcl*) 250 Mg Tablet, 250 MG PO BID, #14 TAB 01/02/17 Atorvastatin* (Atorvastatin*) 40 Mg Tablet, 40 MG PO QHS, #30 TAB 01/02/17 Leflunomide* (Leflunomide*) 20 Mg Tablet, 20 MG PO DAILY, #30 TAB 01/02/17 Ranitidine Hcl* (Ranitidine Hcl*) 300 Mg Tablet, 300 MG PO HS, #30 TAB 01/02/17 Phenazopyridine Hcl* (Phenazopyridine Hcl*) 200 Mg Tablet, 200 MG PO TID, TAB 01/02/17 Meclizine Hcl* (Meclizine Hcl*) 25 Mg Tablet, 25 MG PO Q8H Y for DIZZINESS, TAB 01/02/17 Discontinued Reported Medications Metoprolol Tartrate* (Lopressor*) 25 Mg Tablet, 25 MG PO BID, #60 TAB 01/02/17 Sitagliptin* (Januvia*) 50 Mg Tablet, 50 MG PO DAILY, #30 TAB 01/02/17 Lisinopril* (Lisinopril*) 10 Mg Tablet, 10 MG PO DAILY, #30 TAB 01/02/17 Nifedipine* (Nifedipine ER*) 30 Mg Tablet.sa, 30 MG PO DAILY, TAB.SA 01/02/17 Primary Care Provider Not On Staff Doctor Pending Labs Laboratory Tests Test 01/12/17 12:45 01/12/17 17:29 01/12/17 20:32 01/13/17 05:46 Bedside Glucose 105mg/dL (70-220) 86mg/dL (70-220) 99mg/dL (70-220) White Blood Count 8.510^3/ul (4.8-10.8) Red Blood Count 3.5410^6/ul (4.20-5.40) Hemoglobin 10.3g/dl (12.0-16.0) Hematocrit 33.1% (37.0-47.0) Mean Corpuscular Volume 93.5fl (82.0-101.0) Mean Corpuscular Hemoglobin 29.1pg (29.0-33.0) Mean Corpuscular Hemoglobin Concent 31.1g/dl (32.0-37.0) Red Cell Distribution Width 18.6% (11.5-14.5) Platelet Count 17689^3/UL (140-415) Mean Platelet Volume 9.7fl (7.4-10.4) Neutrophils % 62.6% (39.0-77.0) Lymphocytes % 15.7% (15.0-51.0) Monocytes % 15.2% (0.0-11.0) Eosinophils % 0.9% (0.0-7.0) Basophils % 1.1% (0.0-2.0) Nucleated Red Blood Cells % 0.0/100WBC (0.0-0.0) Neutrophils # 5.310^3/ul (1.6-7.5) Lymphocytes # 1.310^3/ul (0.8-2.9) Monocytes # 1.310^3/ul (0.3-0.9) Eosinophils # 0.110^3/ul (0.0-0.5) Basophils # 0.110^3/ul (0.0-0.1) Nucleated Red Blood Cells # 0.010^3/ul (0.0-0.0) Sodium Level 135mmol/L (135-144) Potassium Level 3.7mmol/L (3.5-5.1) Chloride Level 105mmol/L (97-110) Carbon Dioxide Level 27mmol/L (21-31) Anion Gap 7 (8-16) Blood Urea Nitrogen 7mg/dl (7-20) Creatinine 0.62mg/dl (0.44-1.00) Glucose Level 118mg/dl (70-220) Calcium Level 8.4mg/dl (8.4-10.2) Test 01/13/17 08:38 Bedside Glucose 116mg/dL (70-220) JASMIN BLAKE MD Jan 13, 2017 11:00
[2017-01-13] MEDS: DEXTROSE 5%-0.9% NACL 1,000 ML IV SCH (12:31)
--- NOTE | 2017-01-13 14:10 | CONS ---
Date/Time of Note Date/Time of Note DATE: 01/13/17 TIME: 14:09 Consult Date/Type/Reason Admit Date/Time Jan 02, 2017 at 17:02 Type of Consultation: id Ordering Provider: QING LI Objective Vital Signs Date Time Temp Pulse Resp B/P Pulse Ox O2 Delivery O2 Flow Rate FiO2 01/13/17 12:20 71 01/13/17 11:07 98.8 18 133/60 92 01/13/17 08:00 Nasal Cannula 01/13/17 04:31 3.0 01/09/17 13:53 32 Intake and Output 01/12/17 01/12/17 01/13/17 15:00 23:00 07:00 Intake Total 1425 ml 500 ml Output Total 580 ml 400 ml Balance 845 ml 100 ml Results/Medications Result Diagram: 01/13/17 0546 01/13/17 0546 Results 24 hrs Laboratory Tests Test 01/12/17 17:29 01/12/17 20:32 01/13/17 05:46 01/13/17 08:38 Bedside Glucose 86 99 116 White Blood Count 8.5 # Red Blood Count 3.54 L Hemoglobin 10.3 L Hematocrit 33.1 L Mean Corpuscular Volume 93.5 Mean Corpuscular Hemoglobin 29.1 Mean Corpuscular Hemoglobin Concent 31.1 L Red Cell Distribution Width 18.6 H Platelet Count 144 Mean Platelet Volume 9.7 Neutrophils % 62.6 Lymphocytes % 15.7 Monocytes % 15.2 H Eosinophils % 0.9 Basophils % 1.1 Nucleated Red Blood Cells % 0.0 Neutrophils # 5.3 Lymphocytes # 1.3 Monocytes # 1.3 H Eosinophils # 0.1 Basophils # 0.1 Nucleated Red Blood Cells # 0.0 Sodium Level 135 Potassium Level 3.7 Chloride Level 105 Carbon Dioxide Level 27 Anion Gap 7 L Blood Urea Nitrogen 7 Creatinine 0.62 Glucose Level 118 Calcium Level 8.4 Test 01/13/17 12:18 Bedside Glucose 145 Medications Current Medications Morphine Sulfate (morphine) 2 mg Q2H PRN IV FOR NON CARDIAC PAIN (4-10) Last administered on 01/12/17 17:57; Admin Dose 2 MG; Start 01/02/17 at 17:00 Clopidogrel Bisulfate (plaVIX) 75 mg DAILY PO Last administered on 01/13/17 08:39; Admin Dose 75 MG; Start 01/03/17 at 09:00 Atorvastatin Calcium (Lipitor) 40 mg HS PO Last administered on 01/12/17 20: 35; Admin Dose 40 MG; Start 01/02/17 at 21:00 Amitriptyline HCl (Elavil) 75 mg QHS PO Last administered on 01/12/17 20:36; Admin Dose 75 MG; Start 01/03/17 at 21:00 Leflunomide (Arava) 20 mg DAILY PO Last administered on 01/13/17 08:41; Admin Dose 20 MG; Start 01/03/17 at 10:00; Status Future hold Meclizine HCl (Antivert) 25 mg Q8H PRN PO DIZZINESS; Start 01/03/17 at 08:30 Phenazopyridine HCl (Pyridium) 200 mg TID PO Last administered on 01/13/17 12 :30; Admin Dose 200 MG; Start 01/03/17 at 10:00 Ranitidine HCl (Zantac) 300 mg HS PO Last administered on 01/12/17 20:35; Admin Dose 300 MG; Start 01/03/17 at 21:00 Zolpidem Tartrate (Ambien) 5 mg HS PRN PO INSOMNIA Last administered on 20:53; Admin Dose 5 MG; Start 01/03/17 at 23:00 Mupirocin (Bactroban) 1 applic BID TOP Last administered on 01/13/17 08:44; Admin Dose 1 APPLIC; Start 01/04/17 at 21:00 Hydromorphone HCl (Dilaudid) 0.2 mg Q15M PRN IV PAIN LEVEL 1-5 Last administered on 01/05/17 09:19; Admin Dose 0.2 MG; Start 01/04/17 at 20:00 Hydromorphone HCl (Dilaudid) 0.4 mg Q15M PRN IV PAIN LEVEL 6-10; Start at 20:00 Oxycodone/ Acetaminophen (Percocet (5/ 325)) 1 tab Q3H PRN PO PAIN LEVEL 1-5 Last administered on 01/12/17 20:46; Admin Dose 1 TAB; Start 01/04/17 at 20:00 Ondansetron HCl (Zofran Inj) 4 mg Q6H PRN IV NAUSEA AND/OR VOMITING; Start 01/04/17 at 20:00 Aspirin (Aspirin) 325 mg DAILY PO Last administered on 01/13/17 08:39; Admin Dose 325 MG; Start 01/05/17 at 09:00 Acetaminophen 650 mg 650 mg Q3H PRN PO ELEVATED TEMPERATURE Last administered on 01/13/17 08:40; Admin Dose 650 MG; Start 01/04/17 at 20:00 Magnesium Sulfate/ Dextrose (Magnesium Sulfate 1 Gm/D5W) 100 ml @ 100 mls/hr PRN PRN IVPB PENDING LAB VALUE; Start 01/04/17 at 20:00 Amiodarone HCl (Cordarone) 200 mg BID PO Last administered on 01/13/17 08:41 ; Admin Dose 200 MG; Start 01/07/17 at 09:00 Metoprolol Tartrate (Lopressor) 50 mg BID PO Last administered on 01/13/17 08 :40; Admin Dose 50 MG; Start 01/07/17 at 21:00 Famotidine 20 mg 20 mg DAILY@08 PO Last administered on 01/13/17 08:41; Admin Dose 20 MG; Start 01/10/17 at 08:00 Dextrose/Sodium Chloride (D5-NS) 1,000 ml @ 75 mls/hr [id number] IV Last administered on 01/13/17 12:31; Admin Dose 75 MLS/HR; Start 01/10/17 at 19:00 Nystatin (Nystatin Susp) 5 ml QID PO Last administered on 01/13/17 12:30; Admin Dose 5 ML; Start 01/12/17 at 13:00 Lisinopril (Zestril) 20 mg DAILY PO Last administered on 01/13/17 08:41; Admin Dose 20 MG; Start 01/13/17 at 09:00 Assessment/Plan Chief Complaint/Hosp Course SUBJECTIVE: No events overnight. The patient is sleeping, looks comfortable, no fevers INDWELLINGS: She has suprapubic catheter. PHYSICAL EXAMINATION: GENERAL: This is a fragile, elderly woman who is awake, in no distress. HEENT: Head atraumatic, normocephalic. Sclerae anicteric. Buccal mucosa dry. NECK: Supple. CHEST: Rise symmetrical. ABDOMEN: Soft, bowel tones present. EXTREMITIES: Without cyanosis. SKIN: With multiple bruises on her sternum and also multiple ecchymotic areas. ASSESSMENT: 1. S/p recurrent urinary tract infection. 2. Status post acute myocardial infarction requiring emergent coronary artery bypass graft on 01/04/2017, status post cardiopulmonary arrest. 3. Diabetes. 4. Methicillin-resistant Staphylococcus aureus nares colonization. 5. Dysphagia==>Gastritis, incomplete esophageal ring at GE junction per EGD . PLAN: Patient remains stable. Off abx, continue present care, aspiration precautions, GI rec-s DW staff/pt Problems: WEST LIAO NP Jan 13, 2017 14:10
--- NOTE | 2017-01-13 16:00 | RADRPT ---
Vent Rate: 69 bpm RR Interval: 0 msec HI Interval: 132 msec QRS Duration: 104 msec QT Interval: 444 msec QTC Interval: 475 msec P-R-T [place]: 29 - -1 - -36 degrees Sinus rhythm with marked sinus arrhythmia Possible Anterior infarct , age undetermined Abnormal ECG Electronically Signed By: Rodney Madden [id number]
--- NOTE | 2017-01-13 18:49 | CONS ---
Date/Time of Note Date/Time of Note DATE: 01/13/17 TIME: 18:48 Assessment/Plan Assessment/Plan Additional Assessment/Plan IMPRESSION: 1. Normochromic normocytic anemia. 2. Dysphagia. Persistent 3. Coronary artery disease, non-ST elevation myocardial infarction. 4. Hypertension. 5. Dyslipidemia. 6. Urinary tract infection. 7. Status post emergency coronary artery bypass graft Plan Nystatin gargle Reassured the patient that she can eat solid food without any problem Physical therapy to ambulate the patient Continue with nystatin May need zinc surface to 20 mg daily for better taste Consultation Date/Type/Reason Admit Date/Time Jan 02, 2017 at 17:02 Initial Consult Date 01/04/17 Type of Consultation: id Referring Provider: QING LI 24 HR Interval Summary Free Text/Dictation Still complains of poor appetite Exam/Review of Systems Vital Signs Vitals Vital Signs Date Time Temp Pulse Resp B/P Pulse Ox O2 Delivery O2 Flow Rate FiO2 01/13/17 17:57 2.0 01/13/17 16:27 75 01/13/17 15:55 97.6 18 140/67 93 01/13/17 08:00 Nasal Cannula 01/09/17 13:53 32 Intake and Output 01/12/17 01/12/17 01/13/17 14:59 22:59 06:59 Intake Total 1425 ml 500 ml Output Total 580 ml 400 ml Balance 845 ml 100 ml Exam Constitutional: alert, oriented, well developed Psych: nl mood/affect, no complaints Head: atraumatic, normocephalic Eyes: EOMI, PERRL, nl conjunctiva, nl lids, nl sclera ENMT: nl external ears & nose, nl lips & teeth, nl nasal mucosa & septum Neck: non-tender, supple Respiratory: clear to auscultation, normal air movement Cardiovascular: nl pulses, regular rate and rhythm Gastrointestinal: nl liver, spleen, non-tender, soft Musculoskeletal: nl extremities to inspection, nl gait and stance Extremities: normal pulses Neurological: SUPPLY ASSISTANT II-XII intact, nl mental status, nl speech, nl strength Skin: nl turgor, No rash or lesions Lymph: nl lymph nodes Results Result Diagram: 01/13/17 0546 01/13/17 0546 Results 24 hrs Laboratory Tests Test 01/12/17 20:32 01/13/17 05:46 01/13/17 08:38 01/13/17 12:18 Bedside Glucose 99 116 145 White Blood Count 8.5 # Red Blood Count 3.54 L Hemoglobin 10.3 L Hematocrit 33.1 L Mean Corpuscular Volume 93.5 Mean Corpuscular Hemoglobin 29.1 Mean Corpuscular Hemoglobin Concent 31.1 L Red Cell Distribution Width 18.6 H Platelet Count 144 Mean Platelet Volume 9.7 Neutrophils % 62.6 Lymphocytes % 15.7 Monocytes % 15.2 H Eosinophils % 0.9 Basophils % 1.1 Nucleated Red Blood Cells % 0.0 Neutrophils # 5.3 Lymphocytes # 1.3 Monocytes # 1.3 H Eosinophils # 0.1 Basophils # 0.1 Nucleated Red Blood Cells # 0.0 Sodium Level 135 Potassium Level 3.7 Chloride Level 105 Carbon Dioxide Level 27 Anion Gap 7 L Blood Urea Nitrogen 7 Creatinine 0.62 Glucose Level 118 Calcium Level 8.4 Test 01/13/17 18:27 Bedside Glucose 193 Medications Medications Current Medications Morphine Sulfate (morphine) 2 mg Q2H PRN IV FOR NON CARDIAC PAIN (4-10) Last administered on 01/12/17 17:57; Admin Dose 2 MG; Start 01/02/17 at 17:00 Clopidogrel Bisulfate (plaVIX) 75 mg DAILY PO Last administered on 01/13/17 08:39; Admin Dose 75 MG; Start 01/03/17 at 09:00 Atorvastatin Calcium (Lipitor) 40 mg HS PO Last administered on 01/12/17 20: 35; Admin Dose 40 MG; Start 01/02/17 at 21:00 Amitriptyline HCl (Elavil) 75 mg QHS PO Last administered on 01/12/17 20:36; Admin Dose 75 MG; Start 01/03/17 at 21:00 Leflunomide (Arava) 20 mg DAILY PO Last administered on 01/13/17 08:41; Admin Dose 20 MG; Start 01/03/17 at 10:00; Status Future hold Meclizine HCl (Antivert) 25 mg Q8H PRN PO DIZZINESS; Start 01/03/17 at 08:30 Phenazopyridine HCl (Pyridium) 200 mg TID PO Last administered on 01/13/17 12 :30; Admin Dose 200 MG; Start 01/03/17 at 10:00 Ranitidine HCl (Zantac) 300 mg HS PO Last administered on 01/12/17 20:35; Admin Dose 300 MG; Start 01/03/17 at 21:00 Zolpidem Tartrate (Ambien) 5 mg HS PRN PO INSOMNIA Last administered on 20:53; Admin Dose 5 MG; Start 01/03/17 at 23:00 Mupirocin (Bactroban) 1 applic BID TOP Last administered on 01/13/17 08:44; Admin Dose 1 APPLIC; Start 01/04/17 at 21:00 Hydromorphone HCl (Dilaudid) 0.2 mg Q15M PRN IV PAIN LEVEL 1-5 Last administered on 01/05/17 09:19; Admin Dose 0.2 MG; Start 01/04/17 at 20:00 Hydromorphone HCl (Dilaudid) 0.4 mg Q15M PRN IV PAIN LEVEL 6-10; Start at 20:00 Oxycodone/ Acetaminophen (Percocet (5/ 325)) 1 tab Q3H PRN PO PAIN LEVEL 1-5 Last administered on 01/12/17 20:46; Admin Dose 1 TAB; Start 01/04/17 at 20:00 Ondansetron HCl (Zofran Inj) 4 mg Q6H PRN IV NAUSEA AND/OR VOMITING; Start 01/04/17 at 20:00 Aspirin (Aspirin) 325 mg DAILY PO Last administered on 01/13/17 08:39; Admin Dose 325 MG; Start 01/05/17 at 09:00 Acetaminophen 650 mg 650 mg Q3H PRN PO ELEVATED TEMPERATURE Last administered on 01/13/17 18:30; Admin Dose 650 MG; Start 01/04/17 at 20:00 Magnesium Sulfate/ Dextrose (Magnesium Sulfate 1 Gm/D5W) 100 ml @ 100 mls/hr PRN PRN IVPB PENDING LAB VALUE; Start 01/04/17 at 20:00 Amiodarone HCl (Cordarone) 200 mg BID PO Last administered on 01/13/17 08:41 ; Admin Dose 200 MG; Start 01/07/17 at 09:00 Metoprolol Tartrate (Lopressor) 50 mg BID PO Last administered on 01/13/17 08 :40; Admin Dose 50 MG; Start 01/07/17 at 21:00 Famotidine 20 mg 20 mg DAILY@08 PO Last administered on 01/13/17 08:41; Admin Dose 20 MG; Start 01/10/17 at 08:00 Dextrose/Sodium Chloride (D5-NS) 1,000 ml @ 75 mls/hr [id number] IV Last administered on 01/13/17 12:31; Admin Dose 75 MLS/HR; Start 01/10/17 at 19:00 Nystatin (Nystatin Susp) 5 ml QID PO Last administered on 01/13/17 17:00; Admin Dose 5 ML; Start 01/12/17 at 13:00 Lisinopril (Zestril) 20 mg DAILY PO Last administered on 01/13/17 08:41; Admin Dose 20 MG; Start 01/13/17 at 09:00 EVY SAUCEDA MD Jan 13, 2017 18:49
== END 2017-01-13 19:50 | DRG 231 ==
LOC: CCL 11:57 → TEL 17:02 → ICU 01-04 16:45 → TEL 01-07 14:45
PROVIDERS: ADMIT Internal Medicine Interventional Cardiology; ATTEND Internal Medicine Interventional Cardiology
PROC: 4A023N7 Measurement of Cardiac Sampling and Pressure, Left Heart, Percutaneous Approach (ICD-10-PCS; 2017-01-02)
PROC: B211YZZ Fluoroscopy of Multiple Coronary Arteries using Other Contrast (ICD-10-PCS; 2017-01-02)
PROC: 02703ZZ Dilation of Coronary Artery, One Artery, Percutaneous Approach (ICD-10-PCS; 2017-01-04)
PROC: 5A02210 Assistance with Cardiac Output using Balloon Pump, Continuous (ICD-10-PCS; 2017-01-04)
PROC: 02100Z9 Bypass Coronary Artery, One Artery from Left Internal Mammary, Open Approach (ICD-10-PCS; 2017-01-04)
PROC: 06BY0ZZ Excision of Lower Vein, Open Approach (ICD-10-PCS; 2017-01-04)
PROC: 5A1221Z Performance of Cardiac Output, Continuous (ICD-10-PCS; 2017-01-04)
PROC: 5A2204Z Restoration of Cardiac Rhythm, Single (ICD-10-PCS; 2017-01-04)
PROC: 0BH17EZ Insertion of Endotracheal Airway into Trachea, Via Natural or Artificial Opening (ICD-10-PCS; 2017-01-04)
PROC: 5A1945Z Respiratory Ventilation, 24-96 Consecutive Hours (ICD-10-PCS; 2017-01-04)
PROC: 30233N1 Transfusion of Nonautologous Red Blood Cells into Peripheral Vein, Percutaneous Approach (ICD-10-PCS; 2017-01-04)
PROC: 30233L1 Transfusion of Nonautologous Fresh Plasma into Peripheral Vein, Percutaneous Approach (ICD-10-PCS; 2017-01-04)
PROC: 30233M1 Transfusion of Nonautologous Plasma Cryoprecipitate into Peripheral Vein, Percutaneous Approach (ICD-10-PCS; 2017-01-04)
PROC: 30233R1 Transfusion of Nonautologous Platelets into Peripheral Vein, Percutaneous Approach (ICD-10-PCS; 2017-01-04)
PROC: 021009W Bypass Coronary Artery, One Artery from Aorta with Autologous Venous Tissue, Open Approach (ICD-10-PCS; principal; 2017-01-04 14:00)
PROC: 0DJ08ZZ Inspection of Upper Intestinal Tract, Via Natural or Artificial Opening Endoscopic (ICD-10-PCS; 2017-01-11)
DX: I21.4 Non-ST elevation (NSTEMI) myocardial infarction (principal); I25.42 Coronary artery dissection; R57.0 Cardiogenic shock; I11.0 Hypertensive heart disease with heart failure; J95.821 Acute postprocedural respiratory failure; I50.31 Acute diastolic (congestive) heart failure; R64 Cachexia; K22.2 Esophageal obstruction; I49.01 Ventricular fibrillation; N39.0 Urinary tract infection, site not specified; I97.710 Intraoperative cardiac arrest during cardiac surgery; I97.88 Other intraoperative complications of the circulatory system, not elsewhere classified; I97.790 Other intraoperative cardiac functional disturbances during cardiac surgery; D62 Acute posthemorrhagic anemia; R13.10 Dysphagia, unspecified; I48.0 Paroxysmal atrial fibrillation; I25.10 Atherosclerotic heart disease of native coronary artery without angina pectoris; K29.70 Gastritis, unspecified, without bleeding; E78.5 Hyperlipidemia, unspecified; R33.9 Retention of urine, unspecified; F32.9 Major depressive disorder, single episode, unspecified; E87.6 Hypokalemia; E11.9 Type 2 diabetes mellitus without complications; M06.9 Rheumatoid arthritis, unspecified; Y83.8 Other surgical procedures as the cause of abnormal reaction of the patient, or of later complication, without mention of misadventure at the time of the procedure; Y92.238 Other place in hospital as the place of occurrence of the external cause; Z88.2 Allergy status to sulfonamides; Z68.20 Body mass index [BMI] 20.0-20.9, adult; Z22.322 Carrier or suspected carrier of Methicillin resistant Staphylococcus aureus; Z93.50 Unspecified cystostomy status
CPT/HCPCS: 31500; 36415; 36430; 36600; 71010; 80048; 80202; 81001; 81003; 82043; 82803; 82962; 83540; 83735; 84100; 84132; 84155; 84300; 85014; 85025; 85610; 85730; 86644; 86850; 86900; 86901; 86920; 86945; 87040; 87081; 87086; 92526; 92610; 92920; 92950; 93005; 93306; 93312; 93458; 94002; 94003; 94770; J1940; J2001; C1725; C1769; C1876; C1887; C1894; J0171; J0282; J0461; J0583; J0690; J0692; J1170; J1265; J1644; J1815; J1956; J2150; J2250; J2260; J2270; J2370; J2440; J2597; J2720; J2916; J3010; J3370; J3475; J3480; J7030; J7040; J7042; J7050; J7060; J7070; P9016; P9035; P9047; P9059; Q9967